=== PATIENT | male | born 1935 | race Caucasian/White ===

== ENCOUNTER → 2018-09-25 | Outpatient (CLI) | payer MEDICARE, SELFPAY ==
[2018-09-12 13:17] VITALS: BMI 40.2
--- NOTE | 2018-09-25 12:45 | CDU_ITS ---
Reason For Study: Bruits Rt. Velocities/BP Lt. Velocities/BP Prox CCA 54.2/8 cm/sec. Prox CCA 81.7/11.3 cm/sec. Mid CCA 43.2/5.8 cm/sec. Mid CCA 57.5/8 cm/sec. Dist CCA 28.2/9 cm/sec. Dist CCA 50.9/11.3 cm/sec. Prox ICA 34.4/12.4 cm/sec. Prox ICA 53.2/15.4 cm/sec. Mid ICA 66.2/16.8 cm/sec. Mid ICA 74.9/23 cm/sec. Dist ICA 50.9/12.4 cm/sec. Dist ICA 60.5/15.8 cm/sec. Rt. ICA/CCA = 1.5. Lt. ICA/CCA = 1.3. Prox ECA 106/5.3 cm/sec. Prox ECA 89.9/5.2 cm/sec. Rt. Vert. 38.8/11.3 cm/sec. Lt. Vert. 40.9/12.6 cm/sec. Right Extracranial There is intimal thickening but no significant atherosclerotic plaque noted in the right common carotid artery. There is heterogeneous, smooth atherosclerotic plaque noted in the right internal carotid artery. There is heterogeneous, smooth atherosclerotic plaque noted in the right external carotid artery. Antegrade flow is noted in the right vertebral artery. Left Extracranial There is intimal thickening but no significant atherosclerotic plaque noted in the left common carotid artery. There is heterogeneous, irregular atherosclerotic plaque noted in the left internal carotid artery. There is homogeneous, smooth atherosclerotic plaque noted in the left external carotid artery. Antegrade flow is noted in the left vertebral artery. Procedure Carotid Duplex [id number]. Exam performed in department. Interpretation Summary Post operative changes right carotid bulb and proximal internal carotid with <50% stenosis of the internal carotid <50% stenosis right external carotid Mild irregular plague at the proximal left internal carotid with <50% stenosis. <50% stenosis left external carotid Patent and antegrade vertebrals bilaterally Ordering Physician: Monik Sexton Referring Physician: MD Vincent Tommy Performed By: Hodan Hernandez RVT
== END | disposition home or self-care (01) ==
LOC: CVS 12:42
PROVIDERS: Family Provider Family Medicine; PCP Family Medicine; Referring Provider Physician Assistant Medical; Visit Provider Physician Assistant Medical
DX: R09.89 Other specified symptoms and signs involving the circulatory and respiratory systems (principal)
CPT/HCPCS: 93880

== ENCOUNTER → 2018-11-10 | Outpatient (CLI) | payer MEDICARE, SELFPAY ==
[2018-09-12 13:17] VITALS: BMI 40.2
[2018-11-10 11:29] LABS: Hematocrit 39.1 % (40-54); Mean Corp Hgb Conc 33.2 g/gl (32-36); Mean Corpuscular Hgb 27.7 pg (27.0-32.0); Mean Corpuscular Volume 83.4 fL (80-94); Mean Platelet Vol. 10.5 fl (6.2-12.0); Platelet Count 229 K/mm3 (150-450); RBC Distribution Width CV 13.4 % (11.6-14.6); RBC Distribution Width SD 39.9 fl (35.1-43.9); Red Blood Count 4.69 M/mm3 (4.6-6.2); White Blood Count 8.1 K/mm3 (4.4-11.0)
[2018-11-10 11:30] LABS: Scan Indicated on CBC? Y/N NO
[2018-11-10 11:50] LABS: Hemoglobin A1c 6.8 % (4.2-6.3)
[2018-11-10 11:52] LABS: Albumin, Serum 2.9 g/dL (3.2-5.0); BUN 13 mg/dL (7-18); BUN/Creat Ratio 10.7 RATIO (10-20); Creatinine, Serum 1.21 mg/dL (0.70-1.30); EST Glomerular Filtration Rate 61 mL/min (>60); Est Glom Filt Rate - Afr Amer 74 mL/min (>60); Glucose 158 mg/dL (74-106); Protein, Total 6.1 g/dL (6.4-8.2)
[2018-11-10 11:53] LABS: ALB/GLOB Ratio 0.9 RATIO (0.9-2.4); AST(SGOT) 18 U/L (15-37); Alanine Aminotransfer ALT/SGPT 18 U/L (16-61); Alkaline Phosphatase 95 U/L (45-117); Anion Gap 5 (5-15); Calcium,Total 7.3 mg/dL (8.5-10.1); Chloride 107 mmol/L (98-107); Cholesterol 134 mg/dL (200); Globulin 3.2 g/dL (2.2-4.2); High Density Lipoprotein 29 mg/dL; Potassium 3.6 mmol/L (3.5-5.1); Sodium Level 139 mmol/L (136-145); Triglycerides 186 mg/dL; Very Low Density Lipoprotein 37 mg/dL (5-40)
== END | disposition home or self-care (01) ==
LOC: LABSPEC 10:58
PROVIDERS: Family Provider Family Medicine; PCP Family Medicine; Referring Provider Family Medicine; Visit Provider Family Medicine
DX: E11.9 Type 2 diabetes mellitus without complications (principal); I25.10 Atherosclerotic heart disease of native coronary artery without angina pectoris; E78.5 Hyperlipidemia, unspecified
CPT/HCPCS: 80053; 80061; 83036; 85027

== ENCOUNTER → 2019-05-22 13:23 | Outpatient (CLI) | payer MEDICARE, SELFPAY ==
[2019-05-04 12:46] VITALS: BMI 37.0
--- NOTE | 2019-05-22 13:26 | ECHOD_ITS ---
Reason For Study: Murmur Procedure This was a 2D Doppler, Color Flow transthoracic echocardiogram. Exam performed in department. Left Ventricle Normal LV size. Severe concentric left ventricular hypertrophy. Sigmoid septum. Left ventricular systolic function is normal. The estimated ejection fraction is 65 %. Stage 1 diastolic dysfunction. No regional wall motion abnormalities noted. Right Ventricle Normal RV size. Normal systolic function. Atria The left atrium is moderately enlarged. The right atrium is mildly enlarged. Mitral Valve There is moderate mitral annular calcification. Mild (1+) eccentric mitral valve insufficiency. Tricuspid Valve Normal tricuspid valve. Aortic Valve Trisinus/trileaflet aortic valve. Moderate focal aortic valve calcification. Peak aortic valve gradient 31 mmHg. Mean aortic valve gradient 17 mmHg. Mild to moderate aortic stenosis. Pulmonic Valve Normal pulmonic valve. Great Vessels Calcified aortic root. The pulmonary artery is normal size. Normal inferior vena cava. Pericardium/Pleural No pericardial effusion. MMode/2D Measurements & Calculations LVIDd: 3.9 cm IVSd: 1.6 cm LVOT diam: 2.0 cm LVIDs: 2.4 cm LVPWd: 1.7 cm LVOT area: 3.2 cm2 FS: 38.0 % Ao root diam: 3.8 cm LAV(MOD-bp): 81.5 ml LA A4 area: 25.9 cm2 LAV(MOD-bp) Indexed: 39.6 ml/m2 LAV(MOD-sp2): 73.5 ml LAV(MOD-sp4): 87.0 ml LA dimension(2D): 3.6 cm RA A4 area: 21.6 cm2 Doppler Measurements & Calculations MV E max luca: 137.0 cm/sec Lat Peak E' Luca: 3.7 cm/sec Med Peak E' Luca: 4.5 cm/sec MV A max luca: 150.2 cm/sec E/E' lat: 36.5 E/E' med: 30.7 MV E/A: 0.91 MV V2 max: 161.2 cm/sec MV P1/2t max luca: 134.2 cm/sec Ao V2 max: 279.7 cm/sec MV max P.4 mmHg MV P1/2t: 82.1 msec Ao max P.3 mmHg MV V2 mean: 112.9 cm/sec MV dec slope: 478.6 cm/sec2 Ao V2 mean: 194.3 cm/sec MV mean P.4 mmHg MVA(P1/2t): 2.7 cm2 Ao mean P.0 mmHg MV V2 VTI: 43.5 cm Ao V2 VTI: 61.8 cm MVA(VTI): 1.8 cm2 MARIANNE(I,D): 1.3 cm2 MARIANNE(V,D): 1.2 cm2 LV V1 max: 108.4 cm/sec SV(LVOT): 80.0 ml PA V2 max: 107.7 cm/sec LV V1 max P.7 mmHg LV V1 mean P.5 mmHg LV V1 mean: 74.3 cm/sec LV V1 VTI: 25.1 cm Interpretation Summary Normal LV size. Severe concentric left ventricular hypertrophy. Left ventricular systolic function is normal. The estimated ejection fraction is 65 %. Stage 1 diastolic dysfunction. Moderate focal aortic valve calcification. Mild to moderate aortic stenosis. Mean aortic valve gradient 17 mmHg. Ordering Physician: Chilango Boles Referring Physician: MD Vincent Tommy Performed By: Geeta Perla RDCS
== END ==
PROVIDERS: Family Provider Family Medicine; PCP Family Medicine; Referring Provider Internal Medicine Cardiovascular Disease; Visit Provider Internal Medicine Cardiovascular Disease
DX: I25.10 Atherosclerotic heart disease of native coronary artery without angina pectoris (principal)
CPT/HCPCS: 93306

== ENCOUNTER 2020-06-20 15:28 | Outpatient (RCR) | payer MEDICARE, SELFPAY ==
[2019-05-04 12:46] VITALS: BMI 37.0
== END 2020-06-20 23:59 ==
LOC: IMMUN 15:28
PROVIDERS: PCP Family Medicine; Referring Provider Family Medicine; Visit Provider Family Medicine
DX: Z23 Encounter for immunization (principal)
CPT/HCPCS: 0011A; 0012A

== ENCOUNTER 2020-09-02 22:38 | Inpatient (IN) | payer MEDICARE, SELFPAY ==
[2019-05-04 12:46] VITALS: BMI 37.0
[2020-09-02 22:39] VITALS: PULSE 87; RESP 22; TEMP 38.1; O2SAT 88; BMI 39.9
[2020-09-02 22:41] VITALS: BP 155/116; RESP 27; O2SAT 95; O2SAT 96
--- NOTE | 2020-09-02 22:53 | EKG12_ITS ---
Test Reason : SOB Blood Pressure : / mmHG Vent. Rate : 074 BPM Atrial Rate : 102 BPM P-R Int : 000 ms QRS Dur : 096 ms QT Int : 372 ms P-R-T Axes : 000 -43 103 degrees QTc Int : 412 ms Atrial fibrillation Left axis deviation T wave abnormality, consider lateral ischemia Poor R wave progression Abnormal ECG Confirmed by GINNY HIGHTOWER, BLANCA ([id number]), art editor BIB CENTENO ([id number]) on 09/04/2020 9:12:22 AM Referred By: ANN Confirmed By:BLANCA GROSS MD
--- NOTE | 2020-09-02 22:53 | RAD_ITS ---
STUDY: X-RAY CHEST REASON FOR EXAM: Male, 85 years old. Chest pain. TECHNIQUE: AP COMPARISON: 11/15/1949 CXR FINDINGS: No evidence of pneumonia, pulmonary edema, pneumothorax or pleural effusion. Cardiac silhouette, hilar and mediastinal contours with no acute findings. Mild cardiomegaly. Previous sternotomy. Atherosclerosis of the thoracic aorta. Degenerative osseous changes particularly of the right glenohumeral joint with no acute osseous abnormality. RAD/Chest 1 View (Portable) IMPRESSION: No acute findings. Mild cardiomegaly. Electronically Signed: Kwan Lim MD at 0:18 EDT Tel , Service support ,
--- NOTE | 2020-09-02 22:59 | ED.DCSUM_ITS ---
HPI History of Present Illness Chief Complaint: Shortness of Breath PFSH PFS Medical History Atherosclerotic heart disease of [place] coronary artery without angina pectoris Benign essential hypertension Bilateral carotid bruits Carotid artery stenosis Congestive heart failure (CHF) DM type 2 (diabetes mellitus, type 2) GERD (gastroesophageal reflux disease) History of non-ST elevation myocardial infarction (NSTEMI) (06/14/06) Hyperlipidemia Left atrial enlargement Nicotine abuse Nonrheumatic aortic (valve) stenosis Obesity Rectal bleeding SBO (small bowel obstruction) Home Medications lisinopril 20 mg PO BID 09/11/14 [History Last Taken 11/14/14 17:00] potassium chloride 20 meq PO BID 09/11/14 [History Last Taken 11/14/14 17:00] tamsulosin 0.4 mg PO DAILY 09/11/14 [History Last Taken 11/13/14 22:00] carvedilol 25 mg PO BID #60 tab 09/13/14 [Rx Last Taken 11/14/14 17:00] amlodipine 10 mg PO DAILY 10/14/14 [History Last Taken 11/14/14 09:00] nitroglycerin 0.4 mg SUBLINGUAL Q5M PRN 10/14/14 [History Last Taken Unknown] simvastatin 40 mg PO QHS 10/14/14 [History Last Taken 11/14/14 22:00] clopidogrel 75 mg tablet 75 mg PO QDAY tab 08/01/17 [History Last Taken U nknown] omeprazole 20 mg capsule,delayed release 20 mg PO QDAY 08/01/17 [History Last Taken Unknown] furosemide 40 mg tablet 40 mg PO PRN PRN 03/15/18 [History Last Taken Unknown] dutasteride 0.5 mg capsule 0.5 mg PO DAILY cap 05/04/19 [History Last Taken Unknown] Allergy/AdvReac Type Severity Reaction Status Date / Time contrast dye AdvReac Severe Unknown Uncoded 05/04/19 12:47 Family History Mother CVA (cerebral vascular accident) Father CVA (cerebral vascular accident) Sister Hypertension Surgical History H/O coronary artery bypass surgery (12/01/01) History of cholecystectomy History of coronary artery stent placement (12/17/08) History of right-sided carotid endarterectomy (10/2014) Social History Smoking Status: Former smoker alcohol intake: never substance use type: does not use diet: low salt caffeine: Yes Type: coffee Number of servings: 4 what type of physical activity do you participate in: none seatbelt use: always do you feel safe at home: Yes ROS ROS ED Constitutional Constitutional ED: Reports other Details: 10 pound weight gain. ; Denies chills, fever(s) or sweats Eyes Eyes: Denies blurry vision or change in vision ENT ENT ED: Denies ear pain, rhinorrhea or sore throat Cardiovascular Cardiovascular: Reports chest pain and other Details: Bilateral lower extremity edema. ; Denies palpitations or racing heartbeat Respiratory/Chest Respiratory/Chest: Reports dyspnea and dyspnea on exertion; Denies cough or sputum Gastrointestinal Gastrointestinal: Denies abdominal pain, constipation, diarrhea or vomiting Genitourinary Genitourinary ED: Reports other Details: Scrotal edema ; Denies dysuria, hematuria or urinary frequency Musculoskeletal Musculoskeletal: Denies arthralgias, myalgias or neck pain Integumentary Denies abscess, Abrasions or rash Neurologic Neurologic: Denies headache(s), paresthesias or weakness Psychiatric Psychiatric: Denies anxiety, depression, suicidal ideation or suicidal thoughts Endocrine Endocrinology: Denies polydipsia or polyuria EXAM Physical Exam Const Vital Signs: 09/02/20 22:39 09/02/20 22:41 09/02/20 23:10 Temperature 100.5 F H Temperature Source Temporal Pulse Rate 87 Respiratory Rate 22 H 27 H Respiratory Effort Short of Breath Respiratory Depth Normal Respiratory Pattern Normal Blood Pressure 155/116 H Blood Pressure Mean 129 Pulse Ox 88 96 97 Oxygen Delivery Method Nasal Cannula Nasal Cannula Oxygen Flow Rate (L/min) 3 2 09/03/20 00:18 Temperature 98.5 F Temperature Source Oral Pulse Rate 76 Respiratory Rate 27 H Respiratory Effort Respiratory Depth Respiratory Pattern Blood Pressure 142/72 H Blood Pressure Mean 95 Pulse Ox 97 Oxygen Delivery Method Nasal Cannula Oxygen Flow Rate (L/min) 2 Positive obese General Appearance ED: NAD Nutritional Appearance: obese HEENT Reports TM's clear and moist mucous membranes atraumatic Tympanic Membrane ED: Yes TM's clear Eyes PERRL and EOMs intact bilaterally Neck no lymphadenopathy and supple Chest Wall Chest Narrative: Nontender Resp normal respiratory effort Resp Narrative: Bilateral bases Auscultation: diminished lung sounds Cardio regular rate Rhythm: abnormal rhythm GI non-tender and non-distended Palpation: soft Narrative: Nontender, edematous scrotum Extremity General Extremety ED: Yes edema; Negative for tenderness General Extremity: edema Neuro oriented x3 and CN's II-XII intact bilaterally Sensorium / Orientation: alert Psych mental status grossly normal Thought Process: normal thought process Skin no wounds Lesions: no lesions Rashes: no rashes MDM MDM MDM Narrative Medical decision making narrative: 85-year-old male presenting with dyspnea on exertion. He states he normally can get around his house pretty well however he can only walk from his bedroom to the bathroom currently and gets severely short of breath. Patient has history of CHF and states he only takes his Lasix sporadically. He was told by Dr. Boles that he should take his Lasix daily. He states he took it Tuesday and Tuesday last week. He states he does not take it all the time because any cannot leave the house due to having to urinate a lot. Patient had intermittent chest pain as well. EKG performed on arrival shows what looks to be atrial fibrillation at a rate of 74 bpm without T wave inversions in 1 and aVL as interpreted by myself. Chest x-ray shows cardiomegaly as interpreted by myself and radiology does agree. Patient has no leukocytosis, hemoglobin hematocrit are stable. Platelets are normal. Creatinine is slightly elevated over previous visit electrolytes are normal. Patient's troponin is negative. BNP is 642 D-dimer is negative when age- adjusted. Given patient was hypoxic at 88% on room air on arrival and he has lower extremity edema and scrotal edema I believe the patient would benefit from admission for treatment for heart failure. Lab Data Labs: Laboratory Results - last 24 hr 09/02/20 09/02/20 09/02/20 23:05 23:05 23:05 WBC 10.1 RBC 4.24 L Hgb 11.7 L Hct 36.7 L MCV 86.6 MCH 27.6 MCHC 31.9 L RDW Std Deviation 43.8 RDW Coeff of [place] 13.9 Plt Count 246 MPV 10.4 Immature Gran % (Auto) 1.300 H Neut % (Auto) 70.8 H Lymph % (Auto) 17.3 L [place] % (Auto) 9.9 Eos % (Auto) 0.4 Baso % (Auto) 0.3 Absolute Neuts (auto) 7.2 Absolute Lymphs (auto) 1.75 Nucleated RBC % 0 D-Dimer Quant (PE/DVT) Sodium 140 Potassium 4.2 Chloride 109 H Carbon Dioxide 24.0 Anion Gap 7 BUN 23 H Creatinine 1.49 H Estim Creat Clear Calc 32.10 Est GFR (MDRD) Af Amer 58 L Est GFR (MDRD) Non-Af 48 L BUN/Creatinine Ratio 15.4 Glucose 146 H Calcium 8.0 L Troponin I < 0.015 B-Natriuretic Peptide 642.7 H 09/02/20 23:05 WBC RBC Hgb Hct MCV MCH MCHC RDW Std Deviation RDW Coeff of [place] Plt Count MPV Immature Gran % (Auto) Neut % (Auto) Lymph % (Auto) [place] % (Auto) Eos % (Auto) Baso % (Auto) Absolute Neuts (auto) Absolute Lymphs (auto) Nucleated RBC % D-Dimer Quant (PE/DVT) 0.59 H* Sodium Potassium Chloride Carbon Dioxide Anion Gap BUN Creatinine Estim Creat Clear Calc Est GFR (MDRD) Af Amer Est GFR (MDRD) Non-Af BUN/Creatinine Ratio Glucose Calcium Troponin I B-Natriuretic Peptide Radiography Diagnostic Testing: Radiology Impression Chest X-Ray 09/02/20 22:53 IMPRESSION: No acute findings. Mild cardiomegaly. Electronically Signed: Kwan Lim MD at 0:18 EDT Tel , Service support , Discharge Plan Triage Chief Complaint: Shortness of Breath ED Provider: Lamont Stewart Dx/Rx/DC Orders Clinical Impression: CHF (congestive heart failure), Atrial fibrillation, Hypoxia Prescriptions: No Action clopidogrel 75 mg tablet 75 mg PO QDAY RF: 0 omeprazole 20 mg capsule,delayed release(DR/EC) 20 mg PO QDAY RF: 0 furosemide 40 mg tablet 40 mg PO PRN PRN (Reason: SWELLING) RF: 0 dutasteride 0.5 mg capsule 0.5 mg PO DAILY RF: 0 lisinopril 20 MG tablet 20 mg PO BID RF: 0 potassium chloride 20 MEQ tablet 20 meq PO BID RF: 0 tamsulosin 0.4 MG capsule,extended release 24hr 0.4 mg PO DAILY RF: 0 carvedilol 25 MG tablet 25 mg PO BID Qty: 60 RF: 6 simvastatin 40 MG tablet 40 mg PO QHS RF: 0 amlodipine 10 MG tablet 10 mg PO DAILY RF: 0 nitroglycerin 0.4 MG tablet 0.4 mg SUBLINGUAL Q5M PRN (Reason: Chest Pain) RF: 0 Primary Care Provider: Tommy Kaur Referrals: Tommy Kaur MD [Primary Care Provider] - Disposition Patient Disposition: Acute Care Hospital [facility]
[2020-09-02 23:10] VITALS: O2SAT 97
[2020-09-02] MEDS: Aspirin 81 MG TAB.CHEW 324 MG PO (23:24)
[2020-09-02 23:34] LABS: Absolute Lymphocyte Count 1.75 X10^3/uL (0.83-4.51); Absolute Neutrophil Count 7.2 X10^3/uL (2.0-7.7); Basophil# 0.03 X10^3/uL; Basophil% 0.3 % (0-1); Eosinophil# 0.04 X10^3/uL; Eosinophils% 0.4 % (0-5); Hematocrit 36.7 % (40-54); Hemoglobin 11.7 g/dL (13.0-16.5); Lymphocyte # 1.75 X10^3/ul (0.83-4.51); Lymphocyte % 17.3 % (19-41); Mean Corp Hgb Conc 31.9 g/dL (32-36); Mean Corpuscular Hgb 27.6 pg (27.0-32.0); Mean Corpuscular Volume 86.6 fL (80-94); Mean Platelet Vol. 10.4 fl (6.2-12.0); Monocyte% 9.9 % (0-10); NRBC Flagged by Analyzer 0 % (0-5); Neutrophil # 7.16 X10^3/uL (2.7-7.7); Neutrophil % 70.8 % (47-70); Platelet Count 246 K/mm3 (150-450); RBC Distribution Width CV 13.9 % (11.6-14.6); RBC Distribution Width SD 43.8 fl (35.1-43.9); Red Blood Count 4.24 M/mm3 (4.6-6.2); White Blood Count 10.1 K/mm3 (4.4-11.0)
[2020-09-02 23:36] LABS: BNP,B-Type NATRIURETIC PEPTIDE 642.7 pg/mL (0-100)
[2020-09-02 23:40] LABS: Anion Gap 7 (5-15); BUN 23 mg/dL (7-18); BUN/Creat Ratio 15.4 RATIO (10-20); Chloride 109 mmol/L (98-107); Creatinine, Serum 1.49 mg/dL (0.70-1.30); EST Glomerular Filtration Rate 48 mL/min (>60); Est Glom Filt Rate - Afr Amer 58 mL/min (>60); Glucose 146 mg/dL (74-106); Potassium 4.2 mmol/L (3.5-5.1); Sodium Level 140 mmol/L (136-145)
[2020-09-03] VITALS (15 sets, daily range): BP systolic 106–147; BP diastolic 48–84; PULSE 76–96; RESP 18–27; TEMP 36.4–36.9; O2SAT 95–98; BMI 41.8
[2020-09-03 00:10] LABS: D-Dimer Quantitative (DVT/PE) 0.59 FEU/ug/m (0.27-0.49)
--- NOTE | 2020-09-03 00:51 | HP.PCM_ITS ---
Documented by User: LUCITA Nowak 09/03/20 01:11 HPI - General HPI Narrative BLANCA RODRIGUEZ, is a 85 M who presents with complaints of increased shortness of breath and lower extremity swelling over the past week. Patient reports that he has been diagnosed with congestive heart failure but does not take his Lasix like he has been directed due to increased need for urination however, patient states he did take Lasix this past Tuesday and Tuesday. Patient reports that he gets short of breath walking 10 to 15 feet to the bathroom at home. EKG completed in ER shows A. fib which patient states is new for him however he is rate controlled at this time. [facility] Medical History Atherosclerotic heart disease of [place] coronary artery without angina pectoris Benign essential hypertension Bilateral carotid bruits Carotid artery stenosis Congestive heart failure (CHF) DM type 2 (diabetes mellitus, type 2) GERD (gastroesophageal reflux disease) History of non-ST elevation myocardial infarction (NSTEMI) (06/14/06) Hyperlipidemia Left atrial enlargement Nicotine abuse Nonrheumatic aortic (valve) stenosis Obesity Rectal bleeding SBO (small bowel obstruction) Home Medications lisinopril 20 mg PO BID 09/11/14 [History Last Taken 11/14/14 17:00] potassium chloride 20 meq PO BID 09/11/14 [History Last Taken 11/14/14 17:00] tamsulosin 0.4 mg PO DAILY 09/11/14 [History Last Taken 11/13/14 22:00] carvedilol 25 mg PO BID #60 tab 09/13/14 [Rx Last Taken 11/14/14 17:00] amlodipine 10 mg PO DAILY 10/14/14 [History Last Taken 11/14/14 09:00] nitroglycerin 0.4 mg SUBLINGUAL Q5M PRN 10/14/14 [History Last Taken Unknown] simvastatin 40 mg PO QHS 10/14/14 [History Last Taken 11/14/14 22:00] clopidogrel 75 mg tablet 75 mg PO QDAY tab 08/01/17 [History Last Taken Unknown] omeprazole 20 mg capsule,delayed release 20 mg PO QDAY 08/01/17 [History Last Taken Unknown] furosemide 40 mg tablet 40 mg PO PRN PRN 03/15/18 [History Last Taken Unknown] dutasteride 0.5 mg capsule 0.5 mg PO DAILY cap 05/04/19 [History Last Taken Unknown] Allergy/AdvReac Type Severity Reaction Status Date / Time contrast dye AdvReac Severe Unknown Uncoded 05/04/19 12:47 Family History Mother CVA (cerebral vascular accident) Father CVA (cerebral vascular accident) Sister Hypertension Surgical History H/O coronary artery bypass surgery (12/01/01) History of cholecystectomy History of coronary artery stent placement (12/17/08) History of right-sided carotid endarterectomy (10/2014) Social History Smoking Status: Former smoker alcohol intake: never substance use type: does not use diet: low salt caffeine: Yes Type: coffee Number of servings: 4 what type of physical activity do you participate in: none seatbelt use: always do you feel safe at home: Yes ROS Constitutional Constitutional: Reports fatigue and weight gain; Denies anorexia or chills Eyes Eyes: Denies blurry vision or change in vision ENT HEENT: Reports abnormal hearing; Denies headache(s) Cardiovascular Cardiovascular: Denies chest pain or palpitations Respiratory/Chest Respiratory/Chest: Reports shortness of breath with exertion and tachypnea; Denies cough Gastrointestinal Gastrointestinal: Denies abdominal pain, constipation, diarrhea or nausea Genitourinary Genitourinary: Denies dysuria Musculoskeletal Musculoskeletal: Denies back pain Integumentary Integumentary: Reports dry skin Neurologic Neurologic: Denies confusion, dizziness or numbness Psychiatric Psychiatric: Denies anxiety or depression Endocrine Endocrinology: Denies change in body appearance Hematologic/Lymphatic Hematologic/Lymphatic: Denies anemia, easy bleeding or easy bruising Vital Signs Vital Signs Vital Signs: 09/02/20 22:39 09/02/20 22:41 09/02/20 23:10 Temperature 100.5 F H Temperature Source Temporal Pulse Rate 87 Respiratory Rate 22 H 27 H Respiratory Effort Short of Breath Respiratory Depth Normal Respiratory Pattern Normal Blood Pressure 155/116 H Blood Pressure Mean 129 Pulse Ox 88 96 97 Oxygen Delivery Method Nasal Cannula Nasal Cannula Oxygen Flow Rate (L/min) 3 2 09/03/20 00:18 Temperature 98.5 F Temperature Source Oral Pulse Rate 76 Respiratory Rate 27 H Respiratory Effort Respiratory Depth Respiratory Pattern Blood Pressure 142/72 H Blood Pressure Mean 95 Pulse Ox 97 Oxygen Delivery Method Nasal Cannula Oxygen Flow Rate (L/min) 2 Physical Exam Const alert and oriented x3 General Appearance: cooperative HEENT normocephalic and head/scalp atraumatic Eyes PERRL and EOMs intact bilaterally Neck no lymphadenopathy, supple and no JVD Lymph Lymphatic: no lymphadenopathy noted Resp normal respiratory effort Effort and Inspection: tachypneic Auscultation: rales bilateral and diffuse Cardio regular rate, S1 normal heart sound, S2 normal heart sound and peripheral pulses 2+ throughout Rhythm: abnormal rhythm irregularly irregular GI normal to inspection, nondistended, normoactive bowel sounds, soft to palpation and non-tender Extremity normal capillary refill and no clubbing, cyanosis or edema General Extremity: no tenderness to palpation of joints or extremities Skin General Skin Exam: dry skin Neuro CN's II-XII intact bilaterally Psych thought process normal and affect normal Appearance: appropriate Lab / Micro Data Result Diagrams: 09/02/20 23:05 09/02/20 23:05 Labs: Laboratory Results - last 24 hr 09/02/20 09/02/20 09/02/20 23:05 23:05 23:05 WBC 10.1 RBC 4.24 L Hgb 11.7 L Hct 36.7 L MCV 86.6 MCH 27.6 MCHC 31.9 L RDW Std Deviation 43.8 RDW Coeff of Madonna 13.9 Plt Count 246 MPV 10.4 Immature Gran % (Auto) 1.300 H Neut % (Auto) 70.8 H Lymph % (Auto) 17.3 L [place] % (Auto) 9.9 Eos % (Auto) 0.4 Baso % (Auto) 0.3 Absolute Neuts (auto) 7.2 Absolute Lymphs (auto) 1.75 Nucleated RBC % 0 D-Dimer Quant (PE/DVT) Sodium 140 Potassium 4.2 Chloride 109 H Carbon Dioxide 24.0 Anion Gap 7 BUN 23 H Creatinine 1.49 H Estim Creat Clear Calc 32.10 Est GFR (MDRD) Af Amer 58 L Est GFR (MDRD) Non-Af 48 L BUN/Creatinine Ratio 15.4 Glucose 146 H Calcium 8.0 L Troponin I < 0.015 B-Natriuretic Peptide 642.7 H 09/02/20 23:05 WBC RBC Hgb Hct MCV MCH MCHC RDW Std Deviation RDW Coeff of Madonna Plt Count MPV Immature Gran % (Auto) Neut % (Auto) Lymph % (Auto) [place] % (Auto) Eos % (Auto) Baso % (Auto) Absolute Neuts (auto) Absolute Lymphs (auto) Nucleated RBC % D-Dimer Quant (PE/DVT) 0.59 H* Sodium Potassium Chloride Carbon Dioxide Anion Gap BUN Creatinine Estim Creat Clear Calc Est GFR (MDRD) Af Amer Est GFR (MDRD) Non-Af BUN/Creatinine Ratio Glucose Calcium Troponin I B-Natriuretic Peptide Radiology Impression Chest X-Ray 09/02/20 22:53 IMPRESSION: No acute findings. Mild cardiomegaly. Electronically Signed: Kwan Lim MD at 0:18 EDT Tel , Service support , Assessment & Plan Assessment/Plan (1) CHF (congestive heart failure): Status: Acute Code(s): I50.9 - Heart failure, unspecified Plan: -Furosemide 40 mg IV twice daily for diuresis -Ronak wraps to bilateral lower extremities and elevate extremities to decrease swelling -1500 mL fluid restriction -Strict I&O (2) Atrial fibrillation: Status: Acute Code(s): I48.91 - Unspecified atrial fibrillation Plan: -Currently rate controlled we will continue carvedilol. -Patient initiated on Lovenox, discussed with case management covered anticoagulants -Continuous cardiac monitoring (3) Hypoxia: Status: Acute Code(s): R09.02 - Hypoxemia Plan: -O2 per protocol, patient currently on 2 L nasal cannula (4) Atherosclerotic heart disease of [place] coronary artery without angina pectoris: Status: Chronic Code(s): I25.10 - Atherosclerotic heart disease of [place] coronary artery without angina pectoris Qualifiers: [place] vs. transplanted heart: [place] heart Qualified Code(s): I25.10 - Atherosclerotic heart disease of [place] coronary artery without angina pectoris (5) Benign essential hypertension: Status: Chronic Code(s): I10 - Essential (primary) hypertension Plan: -Continue home medication regimen of amlodipine, carvedilol, furosemide, lisinopril. (6) Hyperlipidemia: Status: Chronic Code(s): E78.5 - Hyperlipidemia, unspecified Qualifiers: Hyperlipidemia type: pure hypercholesterolemia Qualified Code(s): E78.00 - Pure hypercholesterolemia, unspecified; E78.0 - Pure hypercholesterolemia Plan: -Continue simvastatin (7) H/O coronary artery bypass surgery: Status: Resolved Code(s): Z95.1 - Presence of aortocoronary bypass graft (8) History of coronary artery stent placement: Status: Resolved Code(s): Z95.5 - Presence of coronary angioplasty implant and graft Plan: -Admit to PCU for cardiac monitoring -CBC, BMP daily -Vital signs per protocol -PT and OT to eval and treat -Elevate bilateral lower extremities to assist with swelling -Cardiac heart healthy diet -Consult case management for discharge planning and for evaluation of covered anticoagulants -Trend cardiac enzymes DVT Prophylaxis-subcu Lovenox This patient was seen by LUCITA Nowak under the supervision of Dr. Jacobs. Documented by User: Dr. Sathya Jacobs MD 09/03/20 01:34 HPI - General General Date of Admission: 09/03/20 [facility] Medical History Atherosclerotic heart disease of [place] coronary artery without angina pectoris Benign essential hypertension Bilateral carotid bruits Carotid artery stenosis Congestive heart failure (CHF) DM type 2 (diabetes mellitus, type 2) GERD (gastroesophageal reflux disease) History of non-ST elevation myocardial infarction (NSTEMI) (06/14/06) Hyperlipidemia Left atrial enlargement Nicotine abuse Nonrheumatic aortic (valve) stenosis Obesity Rectal bleeding SBO (small bowel obstruction) Home Medications lisinopril 20 mg PO BID 09/11/14 [History Last Taken 11/14/14 17:00] potassium chloride 20 meq PO BID 09/11/14 [History Last Taken 11/14/14 17:00] tamsulosin 0.4 mg PO DAILY 09/11/14 [History Last Taken 11/13/14 22:00] carvedilol 25 mg PO BID #60 tab 09/13/14 [Rx Last Taken 11/14/14 17:00] amlodipine 10 mg PO DAILY 10/14/14 [History Last Taken 11/14/14 09:00] nitroglycerin 0.4 mg SUBLINGUAL Q5M PRN 10/14/14 [History Last Taken Unknown] simvastatin 40 mg PO QHS 10/14/14 [History Last Taken 11/14/14 22:00] clopidogrel 75 mg tablet 75 mg PO QDAY tab 08/01/17 [History Last Taken Unknown] omeprazole 20 mg capsule,delayed release 20 mg PO QDAY 08/01/17 [History Last Taken Unknown] furosemide 40 mg tablet 40 mg PO PRN PRN 03/15/18 [History Last Taken Unknown] dutasteride 0.5 mg capsule 0.5 mg PO DAILY cap 05/04/19 [History Last Taken Unknown] Allergy/AdvReac Type Severity Reaction Status Date / Time contrast dye AdvReac Severe Unknown Uncoded 05/04/19 12:47 Family History Mother CVA (cerebral vascular accident) Father CVA (cerebral vascular accident) Sister Hypertension Surgical History H/O coronary artery bypass surgery (12/01/01) History of cholecystectomy History of coronary artery stent placement (12/17/08) History of right-sided carotid endarterectomy (10/2014) Social History Smoking Status: Former smoker alcohol intake: never substance use type: does not use diet: low salt caffeine: Yes Type: coffee Number of servings: 4 what type of physical activity do you participate in: none seatbelt use: always do you feel safe at home: Yes Lab / Micro Data Result Diagrams: 09/02/20 23:05 09/02/20 23:05 Patient was seen and examined. I agree with assessment and plan by LUCITA Nowak. In summary patient is an 85-year-old male with a significant history of CABG and multiple stent; diabetes mellitus not any hypoglycemic regimen who presents to emergency department with dyspnea on exertion that started a day before pres entation. Associated with symptoms is orthopnea to the point that he sleeps in a recliner. Further he has bilateral swelling in his lower extremities. Alert oriented x3 Heart sounds S1-S2 present. Murmur present Lungs with mild Rales Abdomen edematous Extremities with swelling and excoriations Bilateral leg and feet edema Assessment and plan Acute hypoxemic respiratory insufficiency secondary to acute CHF exacerbation Noted to have oxygen saturation of 88% at the emergency department. Oxygen per protocol to keep oxygen saturation to at least 92%. Chest x-ray independently interpreted showed sternotomy wires and cardiomegaly. Old records were reviewed. Patient had an echocardiogram on 05/22/2019. Echocardiogram showed ejection fraction of 65% and stage I diastolic dysfunction. Patient had mild eccentric mitral valve insufficiency. Patient had left atrium moderate enlargement. Right atrium was mildly enlarged. Was given Lasix 40 mg IV at the emergency department. Continue Lasix 40 mg IV twice daily. Trend BMP. Cardiac diet Daily weights Fluid restriction of thousand 500 mL/day Atrial fibrillation Was found to be in A. fib with controlled rate in the emergency department. Home Coreg. Was started on therapeutic Lovenox. Check TSH and magnesium. Review of emergency department labs showed normal potassium. Intertrigo Nystatin powder ordered. CKD stage III Creatinine on presentation was 1.49. His creatinine 2019 was 1.21. Trend BMP DVT prophylaxis Not indicated since patient has been started on therapeutic dose of Lovenox Inpatient E&M: 90284 Init Hosp L3
[2020-09-03] MEDS: Furosemide 40 MG/4 ML Vial IV ×3 (01:00→17:28)
[2020-09-03 04:51] LABS: Absolute Lymphocyte Count 1.88 X10^3/uL (0.83-4.51); Absolute Neutrophil Count 8.3 X10^3/uL (2.0-7.7); Basophil# 0.05 X10^3/uL; Basophil% 0.4 % (0-1); Eosinophil# 0.03 X10^3/uL; Eosinophils% 0.3 % (0-5); Hemoglobin 11.6 g/dL (13.0-16.5); Lymphocyte # 1.88 X10^3/ul (0.83-4.51); Lymphocyte % 16.5 % (19-41); Mean Corp Hgb Conc 32.2 g/dL (32-36); Mean Corpuscular Hgb 28.4 pg (27.0-32.0); Mean Platelet Vol. 10.1 fl (6.2-12.0); Monocyte# 1.07 X10^3/uL; Monocyte% 9.4 % (0-10); NRBC Flagged by Analyzer 0 % (0-5); Neutrophil # 8.28 X10^3/uL (2.7-7.7); Neutrophil % 72.6 % (47-70); Platelet Count 234 K/mm3 (150-450); RBC Distribution Width CV 13.8 % (11.6-14.6); RBC Distribution Width SD 44.7 fl (35.1-43.9); Red Blood Count 4.09 M/mm3 (4.6-6.2); White Blood Count 11.4 K/mm3 (4.4-11.0)
[2020-09-03 05:26] LABS: Anion Gap 9 (5-15); BUN 25 mg/dL (7-18); BUN/Creat Ratio 16.6 RATIO (10-20); Calcium,Total 7.8 mg/dL (8.5-10.1); Chloride 108 mmol/L (98-107); Creatinine, Serum 1.51 mg/dL (0.70-1.30); EST Glomerular Filtration Rate 47 mL/min (>60); Est Glom Filt Rate - Afr Amer 57 mL/min (>60); Estimated Creatinine Clearance 31.68 ml/min; Glucose 159 mg/dL (74-106); Magnesium 0.9 mg/dL (1.6-2.6); Potassium 4.1 mmol/L (3.5-5.1); Sodium Level 141 mmol/L (136-145); Thyroid Stim Hormone (TSH) 1.21 uIU/mL (0.358-3.74)
[2020-09-03] MEDS: Magnesium Sulfate 4gm/100mL 4 GM/100 ML IV.SOLN. IV (06:15)
[2020-09-03] MEDS: Aspirin E.C. 81 MG Tablet PO (11:40)
[2020-09-03] MEDS: Tamsulosin HCl 0.4 MG Capsule PO (11:44)
[2020-09-03] MEDS: Carvedilol 25 MG Tablet PO ×2 (11:44→21:03)
[2020-09-03] MEDS: Potassium Chloride Oral Tablet 20 MEQ PO ×2 (11:44→21:03)
[2020-09-03] MEDS: 0.9% Saline Lock 10 ML Syringe IV ×3 (11:45→21:03)
[2020-09-03] MEDS: amLODIPine 10 MG Tablet PO (11:45)
[2020-09-03] MEDS: Enoxaparin 40 MG/0.4 ML Syringe SC (11:45)
[2020-09-03] MEDS: Finasteride 5 MG Tablet PO (11:46)
[2020-09-03] MEDS: Lisinopril 20 MG Tablet PO ×2 (11:46→21:03)
[2020-09-03] MEDS: Clopidogrel Bisulfate 75 MG Tablet PO (11:46)
[2020-09-03] MEDS: Pantoprazole Sodium 20 MG Tablet PO (11:46)
--- NOTE | 2020-09-03 12:15 | CASEMGMT ---
RN CANDIDO FEED CRUSHER CM to room to meet with patient for initial transition planning/care coordination assessment. RN CANDIDO introduced self and role at [facility]. Pt voices understanding and consents to assessment at this time. Pt sitting up in chair in room in no distress at this time. Pt is A/O at this time and answers all questions appropriately. Care providers, pharmacy, and demographics verified/updated at this time. PCP: Dr Kaur Specialists: Dr Boles--cardiology Preferred Pharmacy: [facility] Retail Insurance: [employer] [facility] Prescription Benefit: Yes Living Will/HPOA: States does not have LW or HCPOA . Interested in more information but states does not want to talk with SW at this time to complete paperwork. Provided information on advanced directives and given Social Service rac card with number to call if chooses in the future to utilize [facility] social work for advanced directive completion. Educated patient that, if patient so chooses, can come back to [facility] and meet with a SW as an outpatient to complete health care advanced directives. Patient expresses understanding. LNOK: dtr-in-law, Kath Leslie, is listed as only contact. Pt states he does not wish to add anyone else at this time. He states his son (Kath's ) is . He has 2 other sons, one lives in [place], and the other lives in [place], but he does not wish for them to be listed as contacts at this time. Living Arrangements: Lives alone in mobile home w/4 steps to enter, which he denies difficulty with. He states there is also a ramp entrance available if needed. Independent w/ADL's. Manages his medications and appts. States he does his own grocery shopping and cooking and laundry. States he does the cleaning, but states, it doesn't get done very often. Transportation: Pt states drives self and states no transportation concerns at this time. DME: States has the following DME: cane, walker. Pt does not have home O2. Pt states no need for further DME at this time. HHC/SNF: No hx SNF. Had HHC about 20 yrs ago after Cardiac Bypass, but does not remember name of agency. Pt declines need for HHC. Aware PT/OT evals are pending. He states he may be interested in OP therapy if they recommend it. Gilma REY, made aware and will follow. Pt wishes to return home and states has no concerns with going home at time of discharge. CM to follow for home for any further discharge planning/needs. Pt voices no concerns/needs at this time. Advised pt to ask for CM if any questions/concerns/needs arise. Voices understanding. PLAN: Home PT/OT evals pending. CM to follow. Pt may be interested in OP therapy if it is recommended. CM to follow for any O2 needs @ d/c. Pt currently on RA. May need ambulatory pulse ox prior to d/c. Lazaro MCKEEN RN CM
--- NOTE | 2020-09-03 12:54 | PCM.PN.HOSP ---
Documented by User: Candi Whitman NP, [employer] 09/03/20 13:10 Subjective Subjective: Patient seen and examined. Reports improvement in shortness of breath. Remains on supplemental oxygen. Denies chest pain. Denies other associated symptoms or complaints. Objective Data Objective Data Vital Signs: Vital Signs Temp Pulse Resp BP Pulse Ox 97.8 F 82 20 H 124/48 H 98 09/03/20 12:19 09/03/20 12:27 09/03/20 12:27 09/03/20 12:19 09/03/20 12:27 Oxygen Flow Rate (L/min) 2 Oxygen Delivery Method Nasal Cannula Weight: 250 lb 14.177 oz Body Mass Index (BMI) 41.8 Finger Stick Blood Glucose 149 Intake & Output: Intake and Output for Last 24 Hours 09/01/20 09/02/20 09/03/20 23:59 23:59 23:59 Intake Total 160 / 160 Balance 160 / 160 Lab / Micro Data Result Diagrams: 09/03/20 04:46 09/03/20 04:46 Labs: Laboratory Results - last 24 hr 09/02/20 09/02/20 09/02/20 23:05 23:05 23:05 WBC 10.1 RBC 4.24 L Hgb 11.7 L Hct 36.7 L MCV 86.6 MCH 27.6 MCHC 31.9 L RDW Std Deviation 43.8 RDW Coeff of [place] 13.9 Plt Count 246 MPV 10.4 Immature Gran % (Auto) 1.300 H Neut % (Auto) 70.8 H Lymph % (Auto) 17.3 L [place] % (Auto) 9.9 Eos % (Auto) 0.4 Baso % (Auto) 0.3 Absolute Neuts (auto) 7.2 Absolute Lymphs (auto) 1.75 Nucleated RBC % 0 D-Dimer Quant (PE/DVT) Sodium 140 Potassium 4.2 Chloride 109 H Carbon Dioxide 24.0 Anion Gap 7 BUN 23 H Creatinine 1.49 H Estim Creat Clear Calc 32.10 Est GFR (MDRD) Af Amer 58 L Est GFR (MDRD) Non-Af 48 L BUN/Creatinine Ratio 15.4 Glucose 146 H Calcium 8.0 L Magnesium Troponin I < 0.015 B-Natriuretic Peptide 642.7 H TSH 09/02/20 09/03/20 09/03/20 23:05 02:10 04:46 WBC 11.4 H RBC 4.09 L Hgb 11.6 L Hct 36.0 L MCV 88.0 MCH 28.4 MCHC 32.2 RDW Std Deviation 44.7 H RDW Coeff of [place] 13.8 Plt Count 234 MPV 10.1 Immature Gran % (Auto) 0.800 Neut % (Auto) 72.6 H Lymph % (Auto) 16.5 L [place] % (Auto) 9.4 Eos % (Auto) 0.3 Baso % (Auto) 0.4 Absolute Neuts (auto) 8.3 H Absolute Lymphs (auto) 1.88 Nucleated RBC % 0 D-Dimer Quant (PE/DVT) 0.59 H* Sodium Potassium Chloride Carbon Dioxide Anion Gap BUN Creatinine Estim Creat Clear Calc Est GFR (MDRD) Af Amer Est GFR (MDRD) Non-Af BUN/Creatinine Ratio Glucose Calcium Magnesium Troponin I < 0.015 B-Natriuretic Peptide TSH 09/03/20 09/03/20 04:46 04:46 WBC RBC Hgb Hct MCV MCH MCHC RDW Std Deviation RDW Coeff of Madonna Plt Count MPV Immature Gran % (Auto) Neut % (Auto) Lymph % (Auto) [place] % (Auto) Eos % (Auto) Baso % (Auto) Absolute Neuts (auto) Absolute Lymphs (auto) Nucleated RBC % D-Dimer Quant (PE/DVT) Sodium 141 Potassium 4.1 Chloride 108 H Carbon Dioxide 24.0 Anion Gap 9 BUN 25 H Creatinine 1.51 H Estim Creat Clear Calc 31.68 Est GFR (MDRD) Af Amer 57 L Est GFR (MDRD) Non-Af 47 L BUN/Creatinine Ratio 16.6 Glucose 159 H Calcium 7.8 L Magnesium 0.9 L* Troponin I < 0.015 B-Natriuretic Peptide TSH 1.21 Radiography Diagnostic Testing: Radiology Impression Chest X-Ray 09/02/20 22:53 IMPRESSION: No acute findings. Mild cardiomegaly. Electronically Signed: Kwan Lim MD at 0:18 EDT Tel , Service support , Physical Exam Const alert, oriented x3 and no apparent distress Orientation / Consciousness: awake, oriented to person, oriented to place and oriented to time HEENT normocephalic and moist oral mucous membranes Head and Scalp: normocephalic Eyes PERRL, EOMs intact bilaterally and conjunctivae normal Neck no lymphadenopathy Resp clear to auscultation bilaterally Auscultation: diminished lung sounds Cardio Cardio Narrative: Atrial fibrillation, rate controlled Heart Sounds: murmur Peripheral Pulses: pulses 2+ throughout GI normal to inspection, nondistended, normoactive bowel sounds, non-tender and non-distended Extremity normal to inspection General Extremity: edema bilateral lower extremity Details: severe Peripheral Pulses: Yes pulses 2+ throughout Skin no rashes or lesions noted Lesions: no lesions Rashes: no rashes Trauma: no lacerations or abrasions Neuro oriented x3 Sensorium / Orientation: awake and alert Psych affect normal Assessment & Plan Assessment/Plan (1) CHF (congestive heart failure): Status: Acute Code(s): I50.9 - Heart failure, unspecified (2) Atrial fibrillation: Status: Acute Code(s): I48.91 - Unspecified atrial fibrillation (3) Hypoxia: Status: Acute Code(s): R09.02 - Hypoxemia Plan: 1. Acute hypoxic respiratory insufficiency secondary to acute on chronic heart failure with preserved ejection fraction-BNP 642. Chest x-ray unremarkable. Patient with significant lower extremity edema. Echocardiogram May 2019 demonstrated an EF of 65%, stage I diastolic dysfunction, mild to moderate aortic stenosis. IV Lasix. Strict I&O. Daily weight. Wean oxygen as tolerated. Repeat echocardiogram. 2. Atrial fibrillation, new onset-rate controlled. On therapeutic Lovenox. Continue carvedilol. Will need oral anticoagulation at discharge. Echocardiogram ordered as noted above. Replace mag. 3. CAD with history of coronary artery bypass/angioplasty/stenting-stable, continue Plavix, statin, carvedilol, lisinopril. Troponin negative. 4. Hypertension-stable, continue amlodipine, carvedilol, lisinopril. 5. Hyperlipidemia-continue statin. 6. Chronic kidney disease stage IIIa-above baseline however no YOLIS. Trend BMP. 7. Obesity-encouraged diet and lifestyle modifications. DVT prophylaxis-Lovenox subcu. This patient was seen by LUCITA Contreras under the supervision of Dr. Coto. Documented by User: Dr. Sukhi Coto DO 09/03/20 13:58 Objective Data Lab / Micro Data Result Diagrams: 09/03/20 04:46 09/03/20 04:46 Assessment & Plan Assessment/Plan (1) CHF (congestive heart failure): Status: Acute Code(s): I50.9 - Heart failure, unspecified Plan: Patient seen and examined independently. Data reviewed. I agree with the above note by the nurse practitioner. 1. Acute heart failure with preserved ejection fraction: EF 65% from 2D echocardiogram. Patient had been taking furosemide intermittently and not consistently due to frequency of urination but also related with some gastrointestinal distress that he would experience. Thus far appears to be tolerating it. The plan is to continue with IV furosemide, carvedilol and lisinopril. The patient continues to have GI issues may consider Bumex or Demadex instead of furosemide. 2. A. fib: New diagnosis. Continue with carvedilol. Change [place] apparent over to apixaban. 3. Hypomagnesemia: Replace and reevaluate. Inpatient E&M: 97994 Subs Hosp L2
--- NOTE | 2020-09-03 13:05 | ECHOCS_ITS ---
Reason For Study: CHF Procedure This was a 2D Doppler, Color Flow transthoracic echocardiogram. Very technically difficult study. Patient refused to get into bed to have testing done, he said he was too short of breath. Echo was performed with patient sitting upright in room chair. Definity used to try and enhance images as much as possible. The study was technically difficult. Contrast injection was performed. Exam performed portable in patient room. Left Ventricle Based upon the 2D echocardiographic and contrast enhanced images obtained there appears to be grossly normal left ventricular size, wall motion, and systolic function. The estimated ejection fraction is 60 %. Unable to assess diastolic dysfunction. Right Ventricle Based upon the 2D echocardiographic images obtained there appears to be grossly normal right ventricular size and systolic function. Atria The left atrium is moderately enlarged. The right atrium is not well visualized. No doppler evidence for ASD. Mitral Valve There is moderate to severe mitral annular calcification. Extension of the mitral annular calcification onto the mitral valve leaflets. Trivial mitral valve insufficiency. Tricuspid Valve Normal tricuspid valve. Trivial tricuspid valve insufficiency. Unable to estimate RV systolic pressure/pulmonary artery pressure due to technically difficult study. Aortic Valve Trisinus/trileaflet aortic valve. Severe diffuse aortic valve calcification. Moderate aortic stenosis. Pulmonic Valve The pulmonic valve is not well visualized. Great Vessels The aortic root is not well visualized. Pericardium/Pleural No pericardial effusion. MMode/2D Measurements & Calculations LVOT diam: 2.0 cm LA dimension: 4.4 cm LVOT area: 3.3 cm2 Time Measurements MV dec time: 0.31 sec Doppler Measurements & Calculations MV E max luca: 159.4 cm/sec Lat Peak E' Luca: 5.6 cm/sec Med Peak E' Luca: 4.5 cm/sec E/E' lat: 28.7 E/E' med: 35.3 Ao V2 max: 307.2 cm/sec LV V1 max: 84.1 cm/sec SV(LVOT): 59.4 ml Ao max P.8 mmHg LV V1 max P.8 mmHg Ao V2 mean: 187.9 cm/sec LV V1 mean P.5 mmHg Ao mean P.4 mmHg LV V1 mean: 55.5 cm/sec Ao V2 VTI: 63.8 cm LV V1 VTI: 18.3 cm MARIANNE(I,D): 0.93 cm2 MARIANNE(V,D): 0.89 cm2 PA V2 max: 103.0 cm/sec ECHO/Echo Complete W/ Contrast Interpretation Summary The study was technically difficult. Contrast injection was performed. Based upon the 2D echocardiographic and contrast enhanced images obtained there appears to be grossly normal left ventricular size, wall motion, and systolic function. The estimated ejection fraction is 60 %. The left atrium is moderately enlarged. There is moderate to severe mitral annular calcification. Extension of the mitral annular calcification onto the mitral valve leaflets. Trivial mitral valve insufficiency. Trivial tricuspid valve insufficiency. Moderate aortic stenosis. Unable to estimate RV systolic pressure/pulmonary artery pressure due to techni antonio difficult study. Unable to assess diastolic dysfunction. Ordering Physician: Candi Whitman Referring Physician: MD Tommy Kaur Performed By: Keron Whelan RCS
--- NOTE | 2020-09-03 13:18 | CHAPLAIN ---
Type of Pastoral Visit _x__ Initial Visit ___ Follow-up Visit ___ On-call Visit ___ General Patient Visit ___ Spiritual Assessment ___ Family Conference ___ Bereavement ___ Rapid Response ___ Code Blue ___ Other (describe below) Pastoral Care Referral From _x__ Patient ___ Family ___ Nurse ___ Physician ___ Chest Pain Coordinator ___ Photography Professor ___ Other (describe below) Sacrament/Intervention _x__ Active listening ___ Anointing ___ Druze ___ Bereavement ___ Communion ___ Jeniffer exploration ___ _x__ Life review ___ Prayer ___ Reconciliation ___ Sacrament of Sick _x__ Supportive presence ___ Wedding ___ Other (describe below) Pastoral Comments patient discusses health history and a list of deaths in his family over last few years; pt states he has no family in the area that are supportive of him; pt has a neighbor that gives some help when needed; pt does not have current muslim affiliation and is not interested in spiritual matters at this time; pt willing to have visits
[2020-09-03] MEDS: Ondansetron 4 MG/2 ML Vial IV (21:03)
[2020-09-03] MEDS: Atorvastatin Calcium 20 MG Tablet PO (21:03)
[2020-09-03] MEDS: APIXABAN 2.5 MG TABLET PO (21:03)
[2020-09-03] MEDS: Acetaminophen 325 MG Tablet 650 MG PO (21:52)
[2020-09-04] VITALS (10 sets, daily range): BP systolic 96–124; BP diastolic 36–61; PULSE 62–86; RESP 18–20; TEMP 36.3–36.6; O2SAT 93–96
[2020-09-04 05:21] LABS: Absolute Lymphocyte Count 1.54 X10^3/uL (0.83-4.51); Absolute Neutrophil Count 4.6 X10^3/uL (2.0-7.7); Basophil# 0.02 X10^3/uL; Basophil% 0.3 % (0-1); Eosinophil# 0.27 X10^3/uL; Eosinophils% 3.8 % (0-5); Hematocrit 34.3 % (40-54); Hemoglobin 10.6 g/dL (13.0-16.5); Lymphocyte # 1.54 X10^3/ul (0.83-4.51); Lymphocyte % 21.6 % (19-41); Mean Corp Hgb Conc 30.9 g/dL (32-36); Mean Corpuscular Hgb 27.7 pg (27.0-32.0); Mean Corpuscular Volume 89.8 fL (80-94); Mean Platelet Vol. 10.2 fl (6.2-12.0); Monocyte% 8.4 % (0-10); NRBC Flagged by Analyzer 0 % (0-5); Neutrophil # 4.64 X10^3/uL (2.7-7.7); Neutrophil % 65.2 % (47-70); Platelet Count 242 K/mm3 (150-450); RBC Distribution Width SD 45.2 fl (35.1-43.9); Red Blood Count 3.82 M/mm3 (4.6-6.2); White Blood Count 7.1 K/mm3 (4.4-11.0)
[2020-09-04 05:36] LABS: Anion Gap 5 (5-15); BUN 31 mg/dL (7-18); BUN/Creat Ratio 20.5 RATIO (10-20); Calcium,Total 7.9 mg/dL (8.5-10.1); Chloride 108 mmol/L (98-107); Creatinine, Serum 1.51 mg/dL (0.70-1.30); EST Glomerular Filtration Rate 47 mL/min (>60); Est Glom Filt Rate - Afr Amer 57 mL/min (>60); Estimated Creatinine Clearance 31.68 ml/min; Glucose 135 mg/dL (74-106); Magnesium 1.8 mg/dL (1.6-2.6); Potassium 3.8 mmol/L (3.5-5.1); Sodium Level 140 mmol/L (136-145)
[2020-09-04] MEDS: 0.9% Saline Lock 10 ML Syringe IV ×2 (08:37→11:17)
[2020-09-04] MEDS: Furosemide 40 MG/4 ML Vial IV (08:37)
[2020-09-04] MEDS: APIXABAN 2.5 MG TABLET PO (08:38)
[2020-09-04] MEDS: Finasteride 5 MG Tablet PO (08:38)
[2020-09-04] MEDS: Pantoprazole Sodium 20 MG Tablet PO (08:38)
[2020-09-04] MEDS: Clopidogrel Bisulfate 75 MG Tablet PO (08:38)
[2020-09-04] MEDS: Aspirin E.C. 81 MG Tablet PO (08:38)
[2020-09-04] MEDS: Tamsulosin HCl 0.4 MG Capsule PO (08:38)
[2020-09-04] MEDS: Potassium Chloride Oral Tablet 20 MEQ PO (08:38)
[2020-09-04] MEDS: Carvedilol 25 MG Tablet PO (08:39)
[2020-09-04] MEDS: Acetaminophen 325 MG Tablet 650 MG PO (08:52)
[2020-09-04] MEDS: Ondansetron 4 MG/2 ML Vial IV (11:17)
--- NOTE | 2020-09-04 13:22 | CASEMGMT ---
Pt screened with [facility] Palliative Screening Tool due to strata 3, pt did not meet criteria.
--- NOTE | 2020-09-04 15:28 | PCM.DC ---
Discharge Instructions Outpatient Procedure Reason For Visit: CHF EXACERBATION Diet Discharge Diet: 2000 mg Sodium Diet Activity Discharge Activity: Return to Normal Activity Dressing / Incision Call your doctor if you observe: Fever of 101 or Higher and Chest pain Follow Up Care Test Results: Test results from this visit will be discussed in further detail at your follow-up appointment, if applicable. Discharge Plan Admission Admit Date/Time: 09/03/20 00:50 Attending Provider: Sukhi Coto Primary Care Provider: Tommy Kaur Instructions Patient Instructions: Heart Failure: Tracking Your Weight, Heart Failure: Making Changes to Your Diet, Heart Failure: Evaluating Your Heart, Heart Failure: Medications to Help Your Heart, Heart Failure Discharge Orders/Prescriptions Prescriptions: New Eliquis 2.5 mg Tablet 2.5 mg PO BID Qty: 60 RF: 0 bumetanide 0.5 mg Tablet 1 mg PO BID Qty: 60 RF: 0 Continued clopidogrel 75 mg tablet 75 mg PO QDAY RF: 0 omeprazole 20 mg capsule,delayed release(DR/EC) 20 mg PO QDAY RF: 0 dutasteride 0.5 mg capsule 0.5 mg PO DAILY RF: 0 potassium chloride 20 MEQ tablet 20 meq PO BID RF: 0 tamsulosin 0.4 MG capsule,extended release 24hr 0.4 mg PO QHS RF: 0 carvedilol 25 MG tablet 25 mg PO BID Qty: 60 RF: 6 simvastatin 40 MG tablet 40 mg PO QHS RF: 0 nitroglycerin 0.4 MG tablet 0.4 mg SUBLINGUAL Q5M PRN (Reason: Chest Pain) RF: 0 Changed lisinopril 20 MG tablet 20 mg PO DAILY Qty: 0 RF: 0 Discontinued furosemide 40 mg tablet 40 mg PO PRN PRN (Reason: SWELLING) RF: 0 amlodipine 10 MG tablet 10 mg PO DAILY RF: 0 Referrals: Chilango Boles MD [STAFF PHYSICIAN] - Within 1 Month Tommy Kaur MD [Primary Care Provider] - Within 1 Week Disposition Patient Disposition: Home, self care
--- NOTE | 2020-09-04 15:35 | DS.PCM_ITS ---
Providers Date of Admission: 09/03/20 Primary Care Physician: Dr. Tommy Kaur MD Reason For Visit: CHF EXACERBATION Diagnosis Discharge Diagnosis (1) CHF (congestive heart failure): Status: Acute Code(s): I50.9 - Heart failure, unspecified Medications at Discharge Home Medications potassium chloride 20 meq PO BID 09/11/14 tamsulosin 0.4 mg PO QHS 09/11/14 carvedilol 25 mg PO BID #60 tab 09/13/14 nitroglycerin 0.4 mg SUBLINGUAL Q5M PRN 10/14/14 simvastatin 40 mg PO QHS 10/14/14 clopidogrel 75 mg tablet 75 mg PO QDAY tab 08/01/17 omeprazole 20 mg capsule,delayed release 20 mg PO QDAY 08/01/17 dutasteride 0.5 mg capsule 0.5 mg PO DAILY cap 05/04/19 apixaban [Eliquis] 2.5 mg PO BID #60 tab 09/04/20 bumetanide 1 mg PO BID #60 tab 09/04/20 lisinopril 20 mg PO DAILY #0 tab 09/04/20 Hospital Course Procedures 2-D Echocardiogram Summary of Care Provided Minutes Spent on Discharge: 35 Hospital Course: 85-year-old white male presents with increasing shortness of breath and lower extremity edema over the past week. Patient has a known history of CHF and has been taking furosemide sparingly. Was ordered as needed released according to the patient, but patient said that he does not take the frequent because he urinates frequently but also he gets GI distress with that on occasion. The patient came in was diagnosed with CHF and was started on diuresis. Patient did well and today is on room air. Still does have edema in his lower extremities but is doing well. Patient did complain of a headache and some nausea today unclear if this is related to Lasix or just an underlying migraine but overall the patient is feeling better. And lieu of the Lasix, patient will be on bumetanide 1 mg twice daily. Patient instructed to check daily weights. Given his lower extremity edema and low normal blood pressure, will discontinue the amlodipine but also cut back his lisinopril from 20 twice daily to once daily. Patient did have A. fib at rate controlled. Patient already on carvedilol and will continue. Patient started on apixaban for anticoagulation given his [id number] score of 4. Physical Exam Const alert and oriented x3 General Appearance: cooperative and comfortable Resp normal respiratory effort and clear to auscultation bilaterally Cardio regular rate, regular rhythm, S1 normal heart sound and S2 normal heart sound ABG / Lab / Microbiology Data Result Diagrams: 09/04/20 05:04 09/04/20 05:04 Laboratory: Laboratory Results - last 24 hr 09/04/20 09/04/20 05:04 05:04 WBC 7.1 RBC 3.82 L Hgb 10.6 L Hct 34.3 L MCV 89.8 MCH 27.7 MCHC 30.9 L RDW Std Deviation 45.2 H RDW Coeff of Madonna 14.0 Plt Count 242 MPV 10.2 Immature Gran % (Auto) 0.700 Neut % (Auto) 65.2 Lymph % (Auto) 21.6 [place] % (Auto) 8.4 Eos % (Auto) 3.8 Baso % (Auto) 0.3 Absolute Neuts (auto) 4.6 Absolute Lymphs (auto) 1.54 Nucleated RBC % 0 Sodium 140 Potassium 3.8 Chloride 108 H Carbon Dioxide 27.0 Anion Gap 5 BUN 31 H Creatinine 1.51 H Estim Creat Clear Calc 31.68 Est GFR (MDRD) Af Amer 57 L Est GFR (MDRD) Non-Af 47 L BUN/Creatinine Ratio 20.5 H Glucose 135 H Calcium 7.9 L Magnesium 1.8 Radiography Diagnostic Testing: Radiology Impression Echocardiogram 09/03/20 13:05 Interpretation Summary The study was technically difficult. Contrast injection was performed. Based upon the 2D echocardiographic and contrast enhanced images obtained there appears to be grossly normal left ventricular size, wall motion, and systolic function. The estimated ejection fraction is 60 %. The left atrium is moderately enlarged. There is moderate to severe mitral annular calcification. Extension of the mitral annular calcification onto the mitral valve leaflets. Trivial mitral valve insufficiency. Trivial tricuspid valve insufficiency. Moderate aortic stenosis. Unable to estimate RV systolic pressure/pulmonary artery pressure due to technically difficult study. Unable to assess diastolic dysfunction. Ordering Physician: Candi Whitman Referring Physician: MD Tommy Kaur Performed By: Keron Whelan RCS D/C Instructions Discharge Diet: 2000 mg Sodium Diet Discharge Activity: Return to Normal Activity Call your doctor if you observe: Fever of 101 or Higher and Chest pain Meaningful Use Info Meaningful Use Diagnoses (Choose all that apply): CHF CHF CLARI/ARB ordered at discharge?: Yes Documented LVEF (%): 60 Discharge Plan Admission Admit Date/Time: 09/03/20 00:50 Attending Provider: Sukhi Coto Primary Care Provider: Tommy Kaur Instructions Patient Instructions: Heart Failure: Tracking Your Weight, Heart Failure: Whitney armenta Changes to Your Diet, Heart Failure: Evaluating Your Heart, Heart Failure: Medications to Help Your Heart, Heart Failure Discharge Orders/Prescriptions Prescriptions: New Eliquis 2.5 mg Tablet 2.5 mg PO BID Qty: 60 RF: 0 bumetanide 0.5 mg Tablet 1 mg PO BID Qty: 60 RF: 0 Continued clopidogrel 75 mg tablet 75 mg PO QDAY RF: 0 omeprazole 20 mg capsule,delayed release(DR/EC) 20 mg PO QDAY RF: 0 dutasteride 0.5 mg capsule 0.5 mg PO DAILY RF: 0 potassium chloride 20 MEQ tablet 20 meq PO BID RF: 0 tamsulosin 0.4 MG capsule,extended release 24hr 0.4 mg PO QHS RF: 0 carvedilol 25 MG tablet 25 mg PO BID Qty: 60 RF: 6 simvastatin 40 MG tablet 40 mg PO QHS RF: 0 nitroglycerin 0.4 MG tablet 0.4 mg SUBLINGUAL Q5M PRN (Reason: Chest Pain) RF: 0 Changed lisinopril 20 MG tablet 20 mg PO DAILY Qty: 0 RF: 0 Discontinued furosemide 40 mg tablet 40 mg PO PRN PRN (Reason: SWELLING) RF: 0 amlodipine 10 MG tablet 10 mg PO DAILY RF: 0 Referrals: Chilango Boles MD [STAFF PHYSICIAN] - Within 1 Month Tommy Kaur MD [Primary Care Provider] - Within 1 Week Disposition Patient Disposition: Home, self care
== END 2020-09-04 18:27 | disposition home or self-care (01) | DRG 291 ==
LOC: ED 09-03 00:38 → PCU 09-03 00:57
PROVIDERS: Nurse Practitioner Family; Admitting Provider Hospitalist; Emergency Provider Student in an Organized Health Care Education/Training Program; PCP Family Medicine
DX: I13.0 Hypertensive heart and chronic kidney disease with heart failure and stage 1 through stage 4 chronic kidney disease, or unspecified chronic kidney disease (principal); I50.31 Acute diastolic (congestive) heart failure; Z68.41 Body mass index [BMI] 40.0-44.9, adult; Z91.14 Patient's other noncompliance with medication regimen; E11.22 Type 2 diabetes mellitus with diabetic chronic kidney disease; L30.4 Erythema intertrigo; E66.9 Obesity, unspecified; E83.42 Hypomagnesemia; E78.00 Pure hypercholesterolemia, unspecified; E78.5 Hyperlipidemia, unspecified; I25.10 Atherosclerotic heart disease of native coronary artery without angina pectoris; I25.2 Old myocardial infarction; I48.91 Unspecified atrial fibrillation; K21.9 Gastro-esophageal reflux disease without esophagitis; I35.0 Nonrheumatic aortic (valve) stenosis; N18.31 Chronic kidney disease, stage 3a; Z87.891 Personal history of nicotine dependence; Z95.1 Presence of aortocoronary bypass graft; I65.29 Occlusion and stenosis of unspecified carotid artery; Z87.19 Personal history of other diseases of the digestive system; Z79.02 Long term (current) use of antithrombotics/antiplatelets; Z79.899 Other long term (current) drug therapy
CPT/HCPCS: 71045; 80048; 83735; 83880; 84443; 84484; 85025; 85379; 93005; 93306; 97162; 97166; 97802; 99285; Q9957; A4216; C8929; J1940; J2405

== ENCOUNTER → 2020-10-13 | Outpatient (CLI) | payer MEDICARE, SELFPAY ==
[2020-09-03 01:20] VITALS: BMI 41.8
[2020-10-13 13:05] LABS: International Normalized Ratio 1.9
[2020-10-13 13:16] LABS: Hemoglobin A1c 6.4 % (3.8-5.6)
[2020-10-13 13:29] LABS: Cholesterol 126 mg/dL (200); High Density Lipoprotein 31 mg/dL; Triglycerides 182 mg/dL; Very Low Density Lipoprotein 36 mg/dL (5-40)
== END | disposition home or self-care (01) ==
PROVIDERS: PCP Family Medicine; Visit Provider Family Medicine
DX: E78.5 Hyperlipidemia, unspecified (principal); E11.9 Type 2 diabetes mellitus without complications; Z79.01 Long term (current) use of anticoagulants; Z51.81 Encounter for therapeutic drug level monitoring; I10 Essential (primary) hypertension
CPT/HCPCS: 80061; 83036; 85610

== ENCOUNTER → 2020-10-16 | Outpatient (CLI) | payer MEDICARE, SELFPAY ==
[2020-09-03 01:20] VITALS: BMI 41.8
[2020-10-16 11:13] LABS: International Normalized Ratio 3.4; Prothrombin Time (Protime)PT. 33.3 SECONDS (11.7-14.9)
== END | disposition home or self-care (01) ==
LOC: LABSPEC 10:37
PROVIDERS: PCP Family Medicine; Visit Provider Family Medicine
DX: Z79.01 Long term (current) use of anticoagulants (principal); Z51.81 Encounter for therapeutic drug level monitoring
CPT/HCPCS: 85610

== ENCOUNTER → 2020-10-23 | Outpatient (CLI) | payer MEDICARE, SELFPAY ==
[2020-09-03 01:20] VITALS: BMI 41.8
[2020-10-23 12:31] LABS: International Normalized Ratio 3.7; Prothrombin Time (Protime)PT. 35.5 SECONDS (11.7-14.9)
== END | disposition home or self-care (01) ==
LOC: LABSPEC 11:57
PROVIDERS: PCP Family Medicine; Referring Provider Family Medicine; Visit Provider Family Medicine
DX: Z51.81 Encounter for therapeutic drug level monitoring (principal); Z79.01 Long term (current) use of anticoagulants
CPT/HCPCS: 85610

== ENCOUNTER 2021-05-15 00:24 | Emergency (ER) | payer MEDICARE, SELFPAY ==
[2021-05-15 00:24] VITALS: BP 173/83
[2021-05-15 00:25] VITALS: PULSE 67; RESP 15; TEMP 36.4; O2SAT 100; BMI 38.9
--- NOTE | 2021-05-15 00:46 | RAD_ITS ---
STUDY: X-RAY - UNILATERAL RIBS ( RIGHT ) WITH CHEST REASON FOR EXAM: Male, 86 years old. pain TECHNIQUE - RIBS: 4 view(s) of the ribs. TECHNIQUE - CHEST: Single AP portable view of the chest. COMPARISON: None. FINDINGS - RIBS: Normal visualized ribs without a demonstrated fracture. FINDINGS - CHEST: The lungs are clear and expanded. There is no demonstrated pleural abnormality. Sternal cerclage wires and vascular clips are present from a prior sternotomy and coronary artery bypass graft procedure (CABG). Normal mediastinum and sergio. Normal visualized pulmonary arteries. Normal visualized aortic arch and descending thoracic aorta. Normal visualized thoracic spine. There is degenerative osteoarthritis of the bilateral shoulders. There is no demonstrated abnormality of the visualized soft tissue structures of the upper abdomen. RAD/Ribs Uni Min 3V w/PA Chest IMPRESSION: RIBS: Normal x-ray examination of the ribs. CHEST: Normal x-ray examination of the chest. Electronically Signed: Janee Reese MD at 3:39 EST Tel , Service support ,
--- NOTE | 2021-05-15 00:46 | RAD_ITS ---
STUDY: X-RAY - THORACIC SPINE REASON FOR EXAM: Male, 86 years old. pain TECHNIQUE: 3 view(s) of the thoracic spine were obtained. COMPARISON: None. FINDINGS: Normal kyphosis of the thoracic spine. There is no substantial scoliosis. There is multilevel endplate spondylosis of the thoracic vertebrae. There is multilevel disc space narrowing of the thoracic spine. The soft tissue structures are unremarkable. RAD/Thoracic Spine 3 Views IMPRESSION: There is multilevel endplate spondylosis of the thoracic vertebrae. There is multilevel disc space narrowing of the thoracic spine. Electronically Signed: Janee Reese MD at 3:11 EST Tel , Service support ,
[2021-05-15] MEDS: Morphine 4 MG/ML Syringe IM (00:52)
[2021-05-15] MEDS: Ondansetron ODT 4 MG Tablet PO (00:53)
[2021-05-15] MEDS: Haloperidol Lactate 5 MG/ML Vial 2 MG IM (01:57)
--- NOTE | 2021-05-15 02:30 | RAD_ITS ---
STUDY: X-RAY - LUMBAR SPINE REASON FOR EXAM: Male, 86 years old. pain TECHNIQUE: 2 view(s) of the lumbar spine were obtained. COMPARISON: None FINDINGS: There is reversal of the normal lumbar lordosis. There is no substantial scoliosis. Mild old compression fractures at L2, L3, L4. There is multilevel endplate spondylosis of the lumbar vertebrae. There is multi-level degenerative disc disease with multi-level disc space narrowing. The soft tissue structures are unremarkable. RAD/Lumbar Spine 2 or 3 Views IMPRESSION: Degenerative changes of the spine, as detailed above. Electronically Signed: Janee Reese MD at 3:43 EST Tel , Service support ,
--- NOTE | 2021-05-15 03:59 | EX.ED.DYSGE1 ---
HPI History of Present Illness Chief Complaint: Back Narrative Narrative: Patient is an 86-year-old male who lives at home. He states on Tuesday he was in his bathroom when he lost his balance and fell striking his back on the tub. He denies hitting his head or any loss of consciousness. He does report blood thinner use. He states that he was able to get back up and ambulate following the trauma and did not think much of this. He reports there is been no blood in his urine or stool and he denies any headache or change in vision. He states that he has noticed some increasing pain in his back which makes it difficult for him to lie down. He reports that the pain has slowly been increasing and secondary to this he presents for evaluation. [facility] Medical History (Updated 05/15/21 @ 04:[address] Matty Osei, ) Atherosclerotic heart disease of [place] coronary artery without angina pectoris Benign essential hypertension Bilateral carotid bruits Carotid artery stenosis Congestive heart failure (CHF) DM type 2 (diabetes mellitus, type 2) GERD (gastroesophageal reflux disease) History of non-ST elevation myocardial infarction (NSTEMI) (06/14/06) Hyperlipidemia Left atrial enlargement Nicotine abuse Nonrheumatic aortic (valve) stenosis Obesity Rectal bleeding SBO (small bowel obstruction) Home Medications potassium chloride 20 meq PO BID 09/11/14 [History Last Taken 09/02/20] tamsulosin 0.4 mg PO QHS 09/11/14 [History Last Taken 09/01/20] carvedilol 25 mg PO BID #60 tab 09/13/14 [Rx Last Taken 09/02/20] nitroglycerin 0.4 mg SUBLINGUAL Q5M PRN 10/14/14 [History Last Taken 09/02/20] simvastatin 40 mg PO QHS 10/14/14 [History Last Taken 09/01/20] clopidogrel 75 mg tablet 75 mg PO QDAY tab 08/01/17 [History Last Taken 09/02/20] omeprazole 20 mg capsule,delayed release 20 mg PO QDAY 08/01/17 [History Last Taken 09/02/20] dutasteride 0.5 mg capsule 0.5 mg PO DAILY cap 05/04/19 [History Last Taken 09/02/20] apixaban [Eliquis] 2.5 mg PO BID #60 tab 09/04/20 [Rx Last Taken Unknown] bumetanide 1 mg PO BID #60 tab 09/04/20 [Rx Last Taken Unknown] lisinopril 20 mg PO DAILY #0 tab 09/04/20 [Rx Last Taken 09/02/20] hydrocodone-acetaminophen 1 tab PO Q6H PRN 3 Days #12 tab 05/15/21 [Rx Last Taken Unknown] Allergy/AdvReac Type Severity Reaction Status Date / Time contrast dye AdvReac Severe Unknown Uncoded 05/15/21 00:27 Family History Mother CVA (cerebral vascular accident) Father CVA (cerebral vascular accident) Sister Hypertension Surgical History (Updated 09/03/20 @ 01:33 by Tracey Madsen) H/O coronary artery bypass surgery (12/01/01) History of cholecystectomy History of coronary artery stent placement (12/17/08) History of right-sided carotid endarterectomy (10/2014) Social History Smoking Status: Former smoker alcohol intake: never substance use type: does not use diet: low salt caffeine: Yes Type: coffee Number of servings: 4 what type of physical activity do you participate in: none seatbelt use: always do you feel safe at home: Yes ROS ROS ED Constitutional Constitutional ED: Denies chills or fever(s) ENT ENT ED: Denies sore throat Cardiovascular Cardiovascular: Denies chest pain Respiratory/Chest Respiratory/Chest: Denies cough or dyspnea Gastrointestinal Gastrointestinal: Denies abdominal pain, diarrhea, nausea or vomiting Genitourinary Genitourinary ED: Denies dysuria or hematuria Musculoskeletal Musculoskeletal: Reports back pain; Denies myalgias or neck pain Integumentary Denies Abrasions or rash Neurologic Neurologic: Denies headache(s) Hematologic/Lymphatic Hematologic/Lymphatic: Reports easy bleeding and easy bruising EXAM Physical Exam Const Vital Signs: 05/15/21 00:24 05/15/21 00:25 05/15/21 04:05 Temperature 97.5 F L Temperature Source Temporal Pulse Rate 67 86 Respiratory Rate 15 18 Blood Pressure 173/83 H 118/97 H Blood Pressure Mean 113 Pulse Ox 100 95 Oxygen Delivery Method Room Air Positive well nourished, well developed and obese General Appearance ED: well developed Nutritional Appearance: obese HEENT Reports moist mucous membranes HEENT Narrative: No signs of depressed or basilar skull fracture Eyes PERRL and EOMs intact bilaterally Neck supple Neck Narrative: No bony deformity or step-off of the cervical spine no midline pain with palpation Chest Wall palpation of chest normal Resp normal respiratory effort and clear to auscultation bilaterally Resp Narrative: Breath sounds are diminished but overall clear to auscultation with no signs of distress Cardio regular rate and regular rhythm GI normal to inspection, nondistended, normoactive bowel sounds, non-tender, non-distended and no masses GI Narrative: No voluntary guarding or rigidity no pulsatile mass Auscultation: normoactive bowel sounds Palpation: soft Back/Spine Back/Spine Narrative: Patient has pain on palpation of his thoracic and lumbar spine along the midline without bony deformity or step-off. There is also ecchymosis noted along the right posterior portion of the upper ribs. There is pain with palpation at the site but no obvious bony deformity or crepitance noted. Extremity normal to inspection Neuro oriented x3 and CN's II-XII intact bilaterally Sensorium / Orientation: alert Motor Exam: strength 5/5 throughout Psych mental status grossly normal Skin Skin Narrative: Soft tissue skin with ecchymosis on the right upper posterior rib cage as documented above MDM MDM MDM Narrative Medical decision making narrative: Patient presented to the ER 4 days after a mechanical fall. He did not strike his head or have loss of consciousness but he is on blood thinners. We discussed obtaining a head CT because of this fact. Patient states he does not have a headache and did not strike his head and he does not feel there is need for head CT. He states he is concerned with the pain in his back. At this time the pain is localized to his back it does not radiate into his chest he does not have a pulsatile mass and his radial pulses are equal and symmetric indicating that his pain is musculoskeletal in origin and not a cardiac event such as a dissection. Therefore I felt only need for x-rays of the spine and chest wall at this time. X-rays revealed chronic findings without acute fracture or signs of hemothorax or pneumothorax. Patient was given pain medication and had improvement of his symptoms. He was able to walk with a steady gait with a cane. Therefore at this time with x-rays revealing age-related findings but no acute trauma changes, the fact patient does not want a head CT obtained, and the fact he is able to ambulate I do not feel there is need for further evaluation in the ER and patient can be discharged at this time with symptomatic care Radiography Diagnostic Testing: Clinical Impression(s) from Imaging Studies Ribs w/Chest X-Ray 05/15/21 00:46 IMPRESSION: RIBS: Normal x-ray examination of the ribs. CHEST: Normal x-ray examination of the chest. Electronically Signed: Janee Reese MD at 3:39 EST Tel , Service support , Thoracic Spine X-Ray 05/15/21 00:46 IMPRESSION: There is multilevel endplate spondylosis of the thoracic vertebrae. There is multilevel disc space narrowing of the thoracic spine. Electronically Signed: Janee Reese MD at 3:11 EST Tel , Service support , Lumbar Spine X-Ray 05/15/21 02:30 IMPRESSION: Degenerative changes of the spine, as detailed above. Electronically Signed: Janee Reese MD at 3:43 EST Tel , Service support , Discharge Plan Triage Chief Complaint: Back ED Provider: Matty Osei Dx/Rx/DC Orders Clinical Impression: Contusion of thoracic spine, Accidental fall Instructions: Bruises (Contusions), ED Back Pain (Acute or Chronic) Prescriptions: New hydrocodone-acetaminophen 5-325 mg tablet 1 tab PO Q6H PRN (Reason: pain) 3 Days Qty: 12 RF: 0 No Action clopidogrel 75 mg tablet 75 mg PO QDAY RF: 0 omeprazole 20 mg capsule,delayed release(DR/EC) 20 mg PO QDAY RF: 0 dutasteride 0.5 mg capsule 0.5 mg PO DAILY RF: 0 potassium chloride 20 MEQ tablet 20 meq PO BID RF: 0 tamsulosin 0.4 MG capsule,extended release 24hr 0.4 mg PO QHS RF: 0 carvedilol 25 MG tablet 25 mg PO BID Qty: 60 RF: 6 simvastatin 40 MG tablet 40 mg PO QHS RF: 0 nitroglycerin 0.4 MG tablet 0.4 mg SUBLINGUAL Q5M PRN (Reason: Chest Pain) RF: 0 Eliquis 2.5 mg Tablet 2.5 mg PO BID Qty: 60 RF: 0 bumetanide 0.5 mg Tablet 1 mg PO BID Qty: 60 RF: 0 lisinopril 20 MG tablet 20 mg PO DAILY Qty: 0 RF: 0 Primary Care Provider: Tommy Kaur Referrals: Tommy Kaur MD [Primary Care Provider] - Activity Restrictions/Additional Instructions: If there is no symptom improvement over the next 5 to 7 days with your pain medication please return to the ER or see your family doctor to discuss need for further imaging studies Disposition Disposition: Home, Self Care
[2021-05-15 04:05] VITALS: BP 118/97; PULSE 86; RESP 18; O2SAT 95
== END 2021-05-15 05:21 | disposition home or self-care (01) ==
PROVIDERS: Emergency Provider Emergency Medicine; PCP Family Medicine; Visit Provider Emergency Medicine
DX: S20.229A Contusion of unspecified back wall of thorax, initial encounter (principal); I50.9 Heart failure, unspecified; I11.0 Hypertensive heart disease with heart failure; E78.5 Hyperlipidemia, unspecified; I25.10 Atherosclerotic heart disease of native coronary artery without angina pectoris; E66.9 Obesity, unspecified; I25.2 Old myocardial infarction; Z95.5 Presence of coronary angioplasty implant and graft; W19.XXXA Unspecified fall, initial encounter; Z87.891 Personal history of nicotine dependence; Z79.899 Other long term (current) drug therapy
CPT/HCPCS: 71101; 72072; 72100; 96372; 99284

== ENCOUNTER 2021-06-22 14:25 | Observation (INO) | payer MEDICARE, SELFPAY ==
[2021-06-22 14:26] VITALS: BP 106/61; PULSE 80; RESP 16; TEMP 36.4; O2SAT 98; BMI 32.5
--- NOTE | 2021-06-22 14:33 | RAD_ITS ---
STUDY: X-RAY CHEST REASON FOR EXAM: Male, 86 years old. Sob TECHNIQUE: Single AP portable view of the chest. COMPARISON: Comparison is made with prior study dated 09/02/2020. FINDINGS: EKG electrodes are seen. The lungs are clear and expanded. There is no demonstrated pleural abnormality. Sternal cerclage wires and vascular clips are present from a prior sternotomy and coronary artery bypass graft procedure (CABG). Mild cardiomegaly. Normal mediastinum and sergio. Normal visualized pulmonary arteries. There is atherosclerotic calcification of the aortic arch with tortuosity. Normal visualized thoracic spine. There is degenerative osteoarthritis of the bilateral shoulders. There is no demonstrated abnormality of the visualized soft tissue structures of the upper abdomen. RAD/Chest 1 View (Portable) IMPRESSION: Prior CABG. There is cardiomegaly. The lungs are clear. Electronically Signed: Carson Ladd MD at 15:11 EST ,
--- NOTE | 2021-06-22 14:33 | EKG12_ITS ---
Test Reason : EDEMA Blood Pressure : / mmHG Vent. Rate : 082 BPM Atrial Rate : 115 BPM P-R Int : 000 ms QRS Dur : 098 ms QT Int : 404 ms P-R-T Axes : 000 -57 154 degrees QTc Int : 472 ms Atrial fibrillation Left axis deviation Anterior infarct , age undetermined ST & T wave abnormality, consider lateral ischemia Abnormal ECG Confirmed by GINNY HIGHTOWER, BLANCA ([id number]), scientific publications editor BIB CENTENO ([id number]) on 06/24/2021 11:46:04 AM Referred By: YUE Confirmed By:BLANCA GROSS MD
--- NOTE | 2021-06-22 14:35 | EX.ED.DYSGE1 ---
HPI History of Present Illness Chief Complaint: Edema Detail of Chief Complaint: Leg edema, weeping, fall today Informant: patient Narrative Narrative: Patient reports increased swelling to his lower extremities over the past month or so. He states is not been able to lie down flat to sleep. Couple days ago he noted water leaking from his legs. Today he fell in the bathroom and struck his back against the edge of the bathtub. Patient denied striking his head. He denies chest pain. No fever or chills. [facility] Medical History Atherosclerotic heart disease of [place] coronary artery without angina pectoris Atrial fibrillation Benign essential hypertension Bilateral carotid bruits Carotid artery stenosis Congestive heart failure (CHF) DM type 2 (diabetes mellitus, type 2) GERD (gastroesophageal reflux disease) History of non-ST elevation myocardial infarction (NSTEMI) (06/14/06) Hyperlipidemia Left atrial enlargement Nicotine abuse Nonrheumatic aortic (valve) stenosis Obesity Rectal bleeding SBO (small bowel obstruction) Home Medications potassium chloride 20 meq PO BID 09/11/14 [History Last Taken 09/02/20] tamsulosin 0.4 mg PO QHS 09/11/14 [History Last Taken 09/01/20] carvedilol 25 mg PO BID #60 tab 09/13/14 [Rx Last Taken 09/02/20] nitroglycerin 0.4 mg SUBLINGUAL Q5M PRN 10/14/14 [History Last Taken 09/02/20] simvastatin 40 mg PO QHS 10/14/14 [History Last Taken 09/01/20] clopidogrel 75 mg tablet 75 mg PO QDAY tab 08/01/17 [History Last Taken 09/02/20] omeprazole 20 mg capsule,delayed release 20 mg PO QDAY 08/01/17 [History Last Taken 09/02/20] dutasteride 0.5 mg capsule 0.5 mg PO DAILY cap 05/04/19 [History Last Taken 09/02/20] apixaban [Eliquis] 2.5 mg PO BID #60 tab 09/04/20 [Rx Last Taken Unknown] bumetanide 1 mg PO BID #60 tab 09/04/20 [Rx Last Taken Unknown] lisinopril 20 mg PO DAILY #0 tab 09/04/20 [Rx Last Taken 09/02/20] hydrocodone-acetaminophen 1 tab PO Q6H PRN 3 Days #12 tab 05/15/21 [Rx Last Taken Unknown] Allergy/AdvReac Type Severity Reaction Status Date / Time contrast dye AdvReac Severe Unknown Uncoded 06/22/21 14:27 Family History Mother CVA (cerebral vascular accident) Father CVA (cerebral vascular accident) Sister Hypertension Surgical History H/O coronary artery bypass surgery (12/01/01) History of cholecystectomy History of coronary artery stent placement (12/17/08) History of right-sided carotid endarterectomy (10/2014) Social History Smoking Status: Former smoker alcohol intake: never substance use type: does not use diet: low salt caffeine: Yes Type: coffee Number of servings: 4 what type of physical activity do you participate in: none seatbelt use: always do you feel safe at home: Yes ROS ROS ED Constitutional Constitutional ED: Denies chills or fever(s) Eyes Eyes: Denies change in vision ENT ENT ED: Denies sore throat Cardiovascular Cardiovascular: Denies chest pain Respiratory/Chest Respiratory/Chest: Reports dyspnea; Denies cough Gastrointestinal Gastrointestinal: Denies abdominal pain, nausea or vomiting Genitourinary Genitourinary ED: Denies dysuria Musculoskeletal Musculoskeletal: Reports arthralgias and back pain Integumentary Reports rash and other Details: Bilateral lower extremity wounds Neurologic Neurologic: Denies headache(s) Allergic/Immunologic Allergic/Immunologic ED: Denies urticaria EXAM Physical Exam Const Vital Signs: 06/22/21 14:26 06/22/21 14:30 Temperature 97.6 F L Temperature Source Temporal Pulse Rate 80 Respiratory Rate 16 Respiratory Pattern Normal Blood Pressure 106/61 Blood Pressure Mean 76 Pulse Ox 98 Oxygen Delivery Method Room Air Positive well nourished and well developed General Appearance ED: well developed HEENT Reports moist mucous membranes Eyes PERRL and EOMs intact bilaterally Neck supple Chest Wall inspection of chest normal and palpation of chest normal Resp normal respiratory effort Auscultation: diminished lung sounds Cardio regular rate and regular rhythm GI non-tender Palpation: soft Back/Spine Back/Spine Narrative: No reproducible tenderness of the thoracic or lumbar spine. No ecchymosis, abrasions, sign of trauma. Extremity Extremity Narrative: 4+ bilateral lower extremity edema. Scabbed lesions to the bilateral lower extremities. No evidence of cellulitis. General Extremety ED: Yes edema General Extremity: edema Neuro oriented x3 Sensorium / Orientation: alert Psych mental status grossly normal MDM MDM MDM Narrative Medical decision making narrative: EKG, chest x-ray, lab work obtained. Lab Data Attestation: I reviewed the patient's lab results. Labs: Laboratory Results - last 24 hr 06/22/21 06/22/21 06/22/21 14:33 14:46 14:46 WBC 11.8 H RBC 4.44 L Hgb 12.2 L Hct 38.5 L MCV 86.7 MCH 27.5 MCHC 31.7 L RDW Std Deviation 45.1 H RDW Coeff of Madonna 14.2 Plt Count 355 MPV 10.1 Immature Gran % (Auto) 0.800 Neut % (Auto) 82.4 H Lymph % (Auto) 11.4 L Noble % (Auto) 5.4 Eos % (Auto) 0.0 Baso % (Auto) 0.0 Absolute Neuts (auto) 9.7 H Absolute Lymphs (auto) 1.35 Nucleated RBC % 0 Sodium 140 Potassium 2.7 L* Chloride 101 Carbon Dioxide 31.0 Anion Gap 8 BUN 32 H Creatinine 1.74 H Estim Creat Clear Calc 25.99 Est GFR (MDRD) Af Amer 48 L Est GFR (MDRD) Non-Af 40 L BUN/Creatinine Ratio 18.4 Glucose 178 H Calcium 7.5 L B-Natriuretic Peptide 562.3 H Radiography Chest X-Ray - ED: 1 View, Read by ED Physician and Chronic Changes Diagnostic Testing: Clinical Impression(s) from Imaging Studies Chest X-Ray 06/22/21 14:33 IMPRESSION: Prior CABG. There is cardiomegaly. The lungs are clear. Electronically Signed: Carson Ladd MD at 15:11 EST , EKG Initial EKG: Attestation: I personally reviewed and interpreted this EKG as follows: Interpretation: Atrial Fibrillation (A. fib at 82 with no acute ischemia.) Treatment and Re-Evaluation Comments:: Patient's lab work reviewed. White count is mildly elevated 11.8. Chemistry studies significant for low potassium at 2.7. This is replaced orally. BNP is 562. Chest x-ray reveals clear lung marcelo with no sign of CHF. I discussed test results with the patient. He is having more trouble getting around at home and lives live alone. He did fall today. He is willing to go to a rehab facility to help get his strength back up but does not feel safe at home. Once he is evaluated by hospitalist patient's legs will be wrapped with Ronak wraps. Discharge Plan Triage Chief Complaint: Edema ED Provider: Hina Odonnell Dx/Rx/DC Orders Clinical Impression: Bilateral edema of lower extremity, Hypokalemia, Generalized weakness Prescriptions: No Action clopidogrel 75 mg tablet 75 mg PO QDAY RF: 0 omeprazole 20 mg capsule,delayed release(DR/EC) 20 mg PO QDAY RF: 0 dutasteride 0.5 mg capsule 0.5 mg PO DAILY RF: 0 potassium chloride 20 MEQ tablet 20 meq PO BID RF: 0 tamsulosin 0.4 MG capsule,extended release 24hr 0.4 mg PO QHS RF: 0 carvedilol 25 MG tablet 25 mg PO BID Qty: 60 RF: 6 simvastatin 40 MG tablet 40 mg PO QHS RF: 0 nitroglycerin 0.4 MG tablet 0.4 mg SUBLINGUAL Q5M PRN (Reason: Chest Pain) RF: 0 Eliquis 2.5 mg Tablet 2.5 mg PO BID Qty: 60 RF: 0 bumetanide 0.5 mg Tablet 1 mg PO BID Qty: 60 RF: 0 lisinopril 20 MG tablet 20 mg PO DAILY Qty: 0 RF: 0 hydrocodone-acetaminophen 5-325 mg tablet 1 tab PO Q6H PRN (Reason: pain) 3 Days Qty: 12 RF: 0 Primary Care Provider: Tommy Kaur Referrals: Tommy Kaur MD [Primary Care Provider] - Disposition Disposition: Acute Care Hospital [facility]
[2021-06-22 14:57] LABS: Absolute Lymphocyte Count 1.35 X10^3/uL (0.83-4.51); Absolute Neutrophil Count 9.7 X10^3/uL (2.0-7.7); Hematocrit 38.5 % (40-54); Hemoglobin 12.2 g/dL (13.0-16.5); Lymphocyte # 1.35 X10^3/ul (0.83-4.51); Lymphocyte % 11.4 % (19-41); Mean Corp Hgb Conc 31.7 g/dL (32-36); Mean Corpuscular Hgb 27.5 pg (27.0-32.0); Mean Corpuscular Volume 86.7 fL (80-94); Mean Platelet Vol. 10.1 fl (6.2-12.0); Monocyte# 0.64 X10^3/uL; Monocyte% 5.4 % (0-10); NRBC Flagged by Analyzer 0 % (0-5); Neutrophil # 9.74 X10^3/uL (2.7-7.7); Neutrophil % 82.4 % (47-70); Platelet Count 355 K/mm3 (150-450); RBC Distribution Width CV 14.2 % (11.6-14.6); RBC Distribution Width SD 45.1 fl (35.1-43.9); Red Blood Count 4.44 M/mm3 (4.6-6.2); White Blood Count 11.8 K/mm3 (4.4-11.0)
[2021-06-22 15:04] LABS: Anion Gap 8 (5-15); BUN 32 mg/dL (7-18); BUN/Creat Ratio 18.4 RATIO (10-20); Calcium,Total 7.5 mg/dL (8.5-10.1); Chloride 101 mmol/L (98-107); Creatinine, Serum 1.74 mg/dL (0.70-1.30); EST Glomerular Filtration Rate 40 mL/min (>60); Est Glom Filt Rate - Afr Amer 48 mL/min (>60); Estimated Creatinine Clearance 25.99 ml/min; Glucose 178 mg/dL (74-106); Potassium 2.7 mmol/L (3.5-5.1); Sodium Level 140 mmol/L (136-145)
[2021-06-22 15:18] LABS: BNP,B-Type NATRIURETIC PEPTIDE 562.3 pg/mL (0-100)
[2021-06-22] MEDS: Potassium Chloride Oral Tablet 20 MEQ 40 MEQ PO ×2 (15:45→22:17)
--- NOTE | 2021-06-22 17:43 | PCM.HP.STD ---
[facility] - General General Date of Admission: 06/22/21 Date of Service: 06/22/21 Chief Complaint: Bilateral leg swelling for past 1 month along with oozing in his calf. HPI Narrative BLANCA RODRIGUEZ, is a 86 M with multiple comorbidities as mentioned above including coronary artery status post CABG about 20 years ago and stent last 1 in came to ER with bilateral leg swelling below thigh level for about 1 month. Patient also has oozing from both legs most likely from foot and lower legs. He had both great saphenous vein taken from both lower extremities for CABG in the past. He denies chest pain, shortness of breath at rest. Easily gets tired on walking within home. He is not able to climb stairs for last few months. Easily gets short of breath, dyspnea on exertion on mild exertion, walking within home on same level of floor. As per ED physician, he also fell in the bathroom and struck his back against the edge of the bathtub. Denies hitting his head or major injury although he denied me fall today. He denies dizziness, lightheadedness, syncope. He further added that he fell down about a month ago but denies any major injury. As per EMR, he was brought to ER by squad on May 20 when he fell down in the living room. Patient follows Dr. Boles last seen in the office in September 2018 almost 3 years ago In ER, his heart rate 80/min, blood pressure 106/61. No tachypnea or hypoxia. Chest x-ray image independently reviewed shows evidence of CABG, cardiomegaly but no acute infiltrate. Twelve-lead EKG been reviewed shows A. fib, LAD, QTC 472 ms, QRS 98 ms. Old anterior infarct. Initial lab shows severe hypokalemia, acute kidney injury [facility] Medical History Atherosclerotic heart disease of [place] coronary artery without angina pectoris Atrial fibrillation Benign essential hypertension Bilateral carotid bruits Carotid artery stenosis Congestive heart failure (CHF) DM type 2 (diabetes mellitus, type 2) GERD (gastroesophageal reflux disease) History of non-ST elevation myocardial infarction (NSTEMI) (06/14/06) Hyperlipidemia Left atrial enlargement Nicotine abuse Nonrheumatic aortic (valve) stenosis Obesity Rectal bleeding SBO (small bowel obstruction) Home Medications potassium chloride 20 meq PO BID 09/11/14 [History Last Taken 06/21/21] tamsulosin 0.4 mg PO QHS 09/11/14 [History Last Taken 06/21/21] carvedilol 25 mg PO BID #60 tab 09/13/14 [Rx Last Taken 06/21/21] nitroglycerin 0.4 mg SUBLINGUAL Q5M PRN 10/14/14 [History Last Taken 09/02/20] simvastatin 40 mg PO QHS 10/14/14 [History Last Taken 06/21/21] clopidogrel 75 mg tablet 75 mg PO QDAY tab 08/01/17 [History Last Taken 06/21/21] omeprazole 20 mg capsule,delayed release 20 mg PO QDAY 08/01/17 [History Last Taken 06/21/21] dutasteride 0.5 mg capsule 0.5 mg PO DAILY cap 05/04/19 [History Last Taken 06/21/21] apixaban [Eliquis] 2.5 mg PO BID #60 tab 09/04/20 [Rx Last Taken 06/21/21] bumetanide 1 mg PO BID #60 tab 09/04/20 [Rx Last Taken 06/21/21] lisinopril 20 mg PO DAILY #0 tab 09/04/20 [Rx Last Taken 06/21/21] hydrocodone-acetaminophen 1 tab PO Q6H PRN 3 Days #12 tab 05/15/21 [Rx Last Taken 06/21/21] Allergy/AdvReac Type Severity Reaction Status Date / Time contrast dye AdvReac Severe Unknown Uncoded 06/22/21 14:27 Family History Mother CVA (cerebral vascular accident) Father CVA (cerebral vascular accident) Sister Hypertension Surgical History H/O coronary artery bypass surgery (12/01/01) History of cholecystectomy History of coronary artery stent placement (12/17/08) History of right-sided carotid endarterectomy (10/2014) Social History Smoking Status: Former smoker alcohol intake: never substance use type: does not use diet: low salt caffeine: Yes Type: coffee Number of servings: 4 what type of physical activity do you participate in: none seatbelt use: always do you feel safe at home: Yes ROS ROS Narrative Constitutional: Reports fatigue and weakness HEENT: Reports systems reviewed and no addt'l complaints, except as documented Respiratory/Chest: Denies chest pain, shortness of breath at rest. Rest admission HPI Gastrointestinal: Denies coffee ground emesis, hematemesis or vomiting Genitourinary: Denies burning urination or new urinary tract symptoms Musculoskeletal: Bilateral leg swelling. Complain of back pain mainly positional, chronic in nature. Limited ROM of legs, lower leg pain mainly in feet because of swelling Neurologic: Denies seizure-like activity skin: Multiple scabbed over forehead and lower legs. Endocrinology: Diabetes mellitus type 2. Reports systems reviewed and no addt'l complaints, except as documented Hematologic/Lymphatic: Reports systems reviewed and no addt'l complaints, except as documented Rest 14 ROS are negative except as mentioned in HPI Vital Signs Vital Signs Vital Signs: 06/22/21 14:26 06/22/21 14:30 Temperature 97.6 F L Temperature Source Temporal Pulse Rate 80 Respiratory Rate 16 Respiratory Pattern Normal Blood Pressure 106/61 Blood Pressure Mean 76 Pulse Ox 98 Oxygen Delivery Method Room Air Weight Weight: 189 lb 9.561 oz Body Mass Index (BMI) 32.5 Physical Exam Narrative General: Alert, Oriented x3, Cooperative HEENT: Atraumatic, PERRLA, EOMI, Normocephalic Oral: No Gingival or Mucosal Lesions/ Ulcerations Neck: Supple, No JVD, Negative Carotid Bruits Lungs: Air entry diminished in bilateral lung bases. No crepitation/rhonchi Cardiovascular: Irregular rhythm, chronic A. fib, Normal S1, Normal S2, systolic murmur over LLSB Abdomen: Bowel Sounds Present, Soft, Non Tender, Non-Distended : Penis buried in his scrotum. Groin is wet probably urinary incontinence. No renal angle tenderness. No suprapubic tenderness. Extremities: Bilateral 3+ edema from thigh level below. Capillary Refill Less than 3 Seconds Skin: Multiple scabbed over lower legs and forehead. Mild bulging around lower one third of legs and feet. Bilateral groin rash, erythrasma Musculoskeletal/spine: Mild tenderness over lower one third of legs and feet. ROM restricted due to swelling. Tenderness over lower back, lumbar spine, chronic Neurological: Cranial nerves II-XII grossly intact, DTR 2+/4 and Symmetrical Psych/Mental Status: Flat affect. Results Lab / Micro Data Result Diagrams: 06/22/21 14:46 06/22/21 14:33 Labs: Laboratory Results - last 24 hr 06/22/21 14:33: Sodium 140, Potassium 2.7 L*, Chloride 101, Carbon Dioxide 31.0, Anion Gap 8, BUN 32 H, Creatinine 1.74 H, Estim Creat Clear Calc 25.99, Est GFR (MDRD) Af Amer 48 L, Est GFR (MDRD) Non-Af 40 L, BUN/Creatinine Ratio 18.4, Glucose 178 H, Calcium 7.5 L 06/22/21 14:46: WBC 11.8 H, RBC 4.44 L, Hgb 12.2 L, Hct 38.5 L, MCV 86.7, MCH 27.5, MCHC 31.7 L, RDW Std Deviation 45.1 H, RDW Coeff of Madonna 14.2, Plt Count 355, MPV 10.1, Immature Gran % (Auto) 0.800, Neut % (Auto) 82.4 H, Lymph % (Auto) 11.4 L, Benson % (Auto) 5.4, Eos % (Auto) 0.0, Baso % (Auto) 0.0, Absolute Neuts (auto) 9.7 H, Absolute Lymphs (auto) 1.35, Nucleated RBC % 0 06/22/21 14:46: B-Natriuretic Peptide 562.3 H Radiology Impression Chest X-Ray 06/22/21 14:33 IMPRESSION: Prior CABG. There is cardiomegaly. The lungs are clear. Electronically Signed: Carson Ladd MD at 15:11 EST , Assessment & Plan Assessment/Plan (1) Bilateral edema of lower extremity: (2) Hypokalemia: PLAN: 1. Bilateral leg swelling with history of chronic HFpEF: Patient is being admitted on [facility] with telemetry. Patient had 2D echo in August 2020 which shows EF 60%, LA moderately enlarged, trivial MR, trivial TR, moderate aortic stenosis. BNP elevated but chest x-ray, lungs looks clear with no acute change. IV Lasix 40 mg once daily and titrate as per hemodynamic parameters, kidney function electrolytes. Heart failure core measures including intake and output, fluid restriction less than 1500 mL, daily weight monitoring, kidney and electrolytes monitoring. Bilateral Ronak wrap bandage. The patient was last admitted in August 2020 for acute hypoxic respiratory insufficiency due to acute on chronic HFpEF. At that time A. fib was found. 2. Coronary artery status post CABG and stents chronic A. fib on warfarin: Heart rate is controlled. Patient on carvedilol continued. Patient on apixaban 2.5 mg twice daily because of age and kidney dysfunction. 3. Acute kidney injury on chronic kidney disease, stage IIIb severe hypokalemia: During previous hospitalization patient BUN/creatinine was 23/1.49, serum creatinine clearance was 32 mL/min. Today BUN/creatinine 32/1.74. Monitor kidney function daily any further worsening, hide mill man consulted could be considered. I think his chronic kidney disease mostly due to cardiorenal disease. Denies recent decrease in urine output, burning micturition. Patient potassium is 2.9. Check magnesium and phosphorus. Potassium is getting replaced. 4. Recurrent fall with a scab over lower legs and forehead. PT and OT ordered. 5. Diabetes mellitus type 2: Accu-Chek before meals and at bedtime and cover with Humalog sliding scale. 6. Other comorbidities include hypertension, dyslipidemia, obesity: Home medication reconciliation done. VTE prophylaxis: On apixaban as mentioned above. Discontinue if platelet count drops less than 50,000 or hemoglobin less than 8 g%. Living will/advanced directive/end of life care: Patient does have living will or advanced directive. His son is power of software specialist for health. His about 3 years ago. After discussion of benefits/risks procedures involved with full code, DNR CC arrest and DNR CC, the patient opted for DNRCC arrest with no intubation. Patient doesn't want artificial life support including intubation, tube feed, ventilator and/chest compression, central venous catheter, vasopressor and DC shock if needed Total time spent in [id number] encounter in discussion of advanced directive 16 minutes. Charges/Coding Visit Charges Inpatient E&M: 40287 Init Hosp L3 Procedures Hospitalists Procedures: 52357 Advncd Care Plan 30 Min
[2021-06-22 18:29] VITALS: BP 111/84; PULSE 91; RESP 15; O2SAT 98
[2021-06-22 18:54] VITALS: BP 152/82; PULSE 88; RESP 18; TEMP 36.6; O2SAT 99
[2021-06-22 18:55] VITALS: BMI 31.3
[2021-06-22 18:55] LABS: Phosphorus 3.3 mg/dL (2.5-4.9)
[2021-06-22] MEDS: Furosemide 40 MG/4 ML Vial IV (18:59)
[2021-06-22] MEDS: 0.9% Saline Lock 10 ML Syringe IV (19:15)
[2021-06-22] MEDS: Morphine 2 MG/ML Syringe IV (19:15)
[2021-06-22 19:28] VITALS: PULSE 84
[2021-06-22 20:30] VITALS: O2SAT 96
[2021-06-22] MEDS: Tamsulosin HCl 0.4 MG Capsule PO (20:53)
[2021-06-22] MEDS: Atorvastatin Calcium 40 MG Tablet PO (20:53)
[2021-06-22] MEDS: Carvedilol 25 MG Tablet PO (20:53)
[2021-06-22] MEDS: APIXABAN 2.5 MG TABLET PO (20:53)
[2021-06-22] MEDS: Acetaminophen 325 MG Tablet 650 MG PO (20:54)
[2021-06-22] MEDS: oxyCODONE 5 MG Tablet PO (20:54)
[2021-06-22 21:05] LABS: Bedside Glucose 146 mg/dL (70-110)
[2021-06-22] MEDS: Nystatin Powder 15gm Bottle 1 APPLIC TOPICAL (21:09)
[2021-06-22 21:22] LABS: Potassium 2.9 mmol/L (3.5-5.1)
[2021-06-23] VITALS (11 sets, daily range): BP systolic 85–128; BP diastolic 39–62; PULSE 60–78; RESP 14–18; TEMP 36.6–36.8; O2SAT 94–100
[2021-06-23 06:02] LABS: Absolute Lymphocyte Count 1.46 X10^3/uL (0.83-4.51); Basophil# 0.02 X10^3/uL; Basophil% 0.1 % (0-1); Eosinophil# 0.02 X10^3/uL; Eosinophils% 0.1 % (0-5); Hematocrit 35.1 % (40-54); Hemoglobin 11.3 g/dL (13.0-16.5); Lymphocyte # 1.46 X10^3/ul (0.83-4.51); Lymphocyte % 10.9 % (19-41); Mean Corp Hgb Conc 32.2 g/dL (32-36); Mean Corpuscular Hgb 28.5 pg (27.0-32.0); Mean Corpuscular Volume 88.4 fL (80-94); Mean Platelet Vol. 10.9 fl (6.2-12.0); Monocyte# 0.79 X10^3/uL; Monocyte% 5.9 % (0-10); NRBC Flagged by Analyzer 0 % (0-5); Neutrophil % 81.8 % (47-70); Platelet Count 285 K/mm3 (150-450); RBC Distribution Width CV 14.2 % (11.6-14.6); RBC Distribution Width SD 45.5 fl (35.1-43.9); Red Blood Count 3.97 M/mm3 (4.6-6.2); White Blood Count 13.5 K/mm3 (4.4-11.0)
[2021-06-23] MEDS: Nystatin Powder 15gm Bottle 1 APPLIC TOPICAL ×3 (06:40→20:39)
[2021-06-23 06:50] LABS: Bedside Glucose 125 mg/dL (70-110)
[2021-06-23 07:19] LABS: Anion Gap 7 (5-15); BUN 35 mg/dL (7-18); BUN/Creat Ratio 23.3 RATIO (10-20); Calcium,Total 7.1 mg/dL (8.5-10.1); Chloride 102 mmol/L (98-107); Cholesterol 135 mg/dL (200); EST Glomerular Filtration Rate 47 mL/min (>60); Est Glom Filt Rate - Afr Amer 57 mL/min (>60); Estimated Creatinine Clearance 30.15 ml/min; Glucose 116 mg/dL (74-106); High Density Lipoprotein 28 mg/dL; Sodium Level 141 mmol/L (136-145); Thyroid Stim Hormone (TSH) 0.46 uIU/mL (0.358-3.74); Triglycerides 126 mg/dL; Very Low Density Lipoprotein 25 mg/dL (5-40)
[2021-06-23] MEDS: APIXABAN 2.5 MG TABLET PO ×2 (08:09→20:36)
[2021-06-23] MEDS: Furosemide 40 MG/4 ML Vial IV (08:09)
[2021-06-23] MEDS: Clopidogrel Bisulfate 75 MG Tablet PO (08:09)
[2021-06-23] MEDS: 0.9% Saline Lock 10 ML Syringe IV (08:09)
[2021-06-23] MEDS: oxyCODONE 5 MG Tablet PO ×2 (08:10→15:30)
[2021-06-23] MEDS: Finasteride 5 MG Tablet PO (08:10)
[2021-06-23] MEDS: Pantoprazole Sodium 20 MG Tablet PO (08:10)
[2021-06-23] MEDS: Carvedilol 25 MG Tablet PO ×2 (08:10→20:36)
[2021-06-23] MEDS: Glucerna Shake 120 ML LIQUID PO ×2 (08:19→11:37)
--- NOTE | 2021-06-23 09:46 | PN.HOSP_ITS ---
Documented by User: Candi Whitman NP, HYDRAULIC TESTER-C 06/23/21 10:05 Subjective Subjective Patient seen and examined. Reports improvement of lower extremity swelling. States he feels generally weak and fatigued. States he fell at home 1 month ago. Objective Data Objective Data Vital Signs: Vital Signs Temp Pulse Resp BP Pulse Ox 97.8 F 78 16 121/51 H 97 06/23/21 08:00 06/23/21 08:00 06/23/21 08:00 06/23/21 08:00 06/23/21 08:00 Oxygen Delivery Method Room Air Weight: 181 lb 14.102 oz Body Mass Index (BMI) 31.3 Intake & Output: Intake and Output for Last 24 Hours 06/21/21 06/22/21 06/23/21 23:59 23:59 23:59 Intake Total 500 / 500 Output Total 500 / 500 400 / 400 Balance 0 / 0 -400 / -400 Lab / Micro Data Result Diagrams: 06/23/21 04:49 06/23/21 04:49 Labs: Laboratory Results - last 24 hr 06/22/21 14:33: Sodium 140, Potassium 2.7 L*, Chloride 101, Carbon Dioxide 31.0, Anion Gap 8, BUN 32 H, Creatinine 1.74 H, Estim Creat Clear Calc 25.99, Est GFR (MDRD) Af Amer 48 L, Est GFR (MDRD) Non-Af 40 L, BUN/Creatinine Ratio 18.4, Glucose 178 H, Calcium 7.5 L 06/22/21 14:33: Phosphorus 3.3 06/22/21 14:46: WBC 11.8 H, RBC 4.44 L, Hgb 12.2 L, Hct 38.5 L, MCV 86.7, MCH 27.5, MCHC 31.7 L, RDW Std Deviation 45.1 H, RDW Coeff of Madonna 14.2, Plt Count 355, MPV 10.1, Immature Gran % (Auto) 0.800, Neut % (Auto) 82.4 H, Lymph % (Auto) 11.4 L, Calvert % (Auto) 5.4, Eos % (Auto) 0.0, Baso % (Auto) 0.0, Absolute Neuts (auto) 9.7 H, Absolute Lymphs (auto) 1.35, Nucleated RBC % 0 06/22/21 14:46: B-Natriuretic Peptide 562.3 H 06/22/21 20:50: POC Glucose 146 H 06/22/21 21:04: Potassium 2.9 L 06/23/21 04:49: WBC 13.5 H, RBC 3.97 L, Hgb 11.3 L, Hct 35.1 L, MCV 88.4, MCH 28.5, MCHC 32.2, RDW Std Deviation 45.5 H, RDW Coeff of Madonna 14.2, Plt Count 285, MPV 10.9, Immature Gran % (Auto) 1.200 H, Neut % (Auto) 81.8 H, Lymph % (Auto) 10.9 L, Calvert % (Auto) 5.9, Eos % (Auto) 0.1, Baso % (Auto) 0.1, Absolute Neuts (auto) 11.0 H, Absolute Lymphs (auto) 1.46, Nucleated RBC % 0 06/23/21 04:49: Sodium 141, Potassium 3.0 L, Chloride 102, Carbon Dioxide 32.0, Anion Gap 7, BUN 35 H, Creatinine 1.50 H, Estim Creat Clear Calc 30.15, Est GFR (MDRD) Af Amer 57 L, Est GFR (MDRD) Non-Af 47 L, BUN/Creatinine Ratio 23.3 H, Glucose 116 H, Calcium 7.1 L, Triglycerides 126, Cholesterol 135, LDL Cholesterol 82, VLDL Cholesterol 25, HDL Cholesterol 28 L, TSH 0.46 06/23/21 06:40: POC Glucose 125 H Radiography Diagnostic Testing: Radiology Impression Chest X-Ray 06/22/21 14:33 IMPRESSION: Prior CABG. There is cardiomegaly. The lungs are clear. Electronically Signed: Carson Ladd MD at 15:11 EST , Physical Exam Const alert, oriented x3 and no apparent distress Orientation / Consciousness: awake, oriented to person, oriented to place and oriented to time HEENT normocephalic and moist oral mucous membranes Eyes PERRL, EOMs intact bilaterally and conjunctivae normal Neck no lymphadenopathy Resp clear to auscultation bilaterally Auscultation: diminished lung sounds Cardio Cardio Narrative: Atrial fibrillation, rate controlled Heart Sounds: murmur Peripheral Pulses: pulses 2+ throughout GI normal to inspection, nondistended, normoactive bowel sounds, non-tender and non-distended Extremity normal to inspection General Extremity: edema bilateral lower extremity (ronak wraps in place) Details: moderate Skin no rashes or lesions noted Skin Narrative: Multiple scabbed areas on face and upper extremities, patient noted to be picking at areas. Lesions: no lesions Rashes: no rashes Trauma: no lacerations or abrasions Neuro CN's II-XII intact bilaterally, no focal motor deficits, no sensory deficits noted and deep tendon reflexes 2+ bilaterally Psych Mood & Affect: flat affect Assessment & Plan Assessment/Plan (1) CHF (congestive heart failure): PLAN: 1. Acute on chronic heart failure with preserved ejection fraction- BNP 562. Chest x-ray unremarkable. Patient with significant lower extremity edema. IV Lasix. Strict I&O. Daily weight. Echocardiogram August 2020 demonstrated an EF of 60%, moderate to severe mitral annular calcification, moderate aortic stenosis. Ronak wraps bilateral lower extremities. 2. Paroxysmal atrial fibrillation-rate controlled. On carvedilol, Eliquis. 3. CAD with history of coronary artery bypass/angioplasty/stenting-stable, continue Plavix, statin, carvedilol, lisinopril. 4. Hypertension-stable, continue amlodipine, carvedilol, lisinopril. 5. Hyperlipidemia-continue statin. 6. Chronic kidney disease stage IIIa-stable, trend BMP. 7. Obesity-encouraged diet and lifestyle modifications. 8. BPH-on Flomax. 9. Type 2 diabetes [id number] with sliding scale insulin. 10. Debility with recurrent falls-PT/OT. Case management consult. DVT prophylaxis-Eliquis This patient was seen by LUCITA Contreras under the supervision of Dr. Hamilton. Time spent examining patient, reviewing data and subsequent management of care: 12 Minutes Documented by User: Dr. Hao Hamilton MD 06/23/21 12:31 Objective Data Lab / Micro Data Result Diagrams: 06/23/21 04:49 06/23/21 04:49 Charges/Coding Addendum Addendum: Dr. Hamilton: I personally reviewed the chart and examined the patient, and agree with the above findings. 86-year-old male with a history of diastolic heart failure presents with acute on chronic diastolic heart failure and lower extremity edema. He also developed a little bit of an YOLIS with his creatinine peaking around 1.7. Currently today he is down to 1.5, his baseline does appear to be a round 1. We will continue with IV Lasix and continue wrapping his lower extremities. Continue with PT/OT evaluation. He does state that he feels a little bit better today than he did yesterday. Clinical care time spent in all aspects of patient care: 15 minutes Visit Charges OBSV E&M: 58051 Subsequent observation care L2
--- NOTE | 2021-06-23 10:30 | CASEMGMT ---
CARLEY REY Assessment: Face to Face with pt for initial transition planning/care coordination assessment. CARLEY REY introduced self and role at [facility], pt voices understanding and consents to assessment. Pt is A/O x4 and answers all questions appropriately at this time. Pt lying in bed in no distress. Care providers, pharmacy, and demographics verified/updated. Admitting Dx: leg swelling PCP:Vincent Specialists:Elvi, cardio Preferred Pharmacy: [facility] Insurance: [facility] Prescription Benefit: yes LW/HPOA: Pt states he has a LW/DPOA and his DPOA is his son Joce Leslie. Pt is aware it is not on file at [facility] and he may bring in to be scanned into his chart. LNOK: Joce Leslie, son; Jamee Leslie, dil Living Arrangements: Pt lives alone in a mobile home with a ramp to enter. Pt reports he is I in ADL's and denies concerns at home. Pt states his neighbor assists him with bringing in his groceries. Transportation: Pt drives self and denies concerns with transportation. DME/HHC/SNF: Pt has a walker at home that he just started using in the last couple of weeks d/t having trouble getting around. Pt states he has a grab bar in the bathroom. Pt denies HHC or SNF stays. Pt states no concerns with going home at time of dc. He would be open to reviewing a list of HHC agencies for SN and therapy as he states I know I need to do something soon. Pt states no further concerns/needs. CM to follow. Advised pt to ask CM if any further question/concerns/needs arise, voices understanding. Pt Goal: Home with possible HHC Plan: Home with possible HHC
[2021-06-23 11:30] LABS: Magnesium 1.3 mg/dL (1.6-2.6)
[2021-06-23] MEDS: Insulin Lispro 100 UNIT/ML INSULN.PEN SC ×2 (11:32→20:38)
[2021-06-23] MEDS: Potassium Chloride Oral Tablet 20 MEQ 40 MEQ PO ×2 (11:33→16:56)
[2021-06-23 11:40] LABS: Bedside Glucose 182 mg/dL (70-110)
--- NOTE | 2021-06-23 12:42 | CASEMGMT ---
CARLEY REY in to discuss [employer] form with patient. CARLEY REY explained [employer] form, patient voiced understanding. Pt signed form and filed in chart. Pt provided with a copy of signed [employer]ZAN form. Patient had no further questions or concerns at this time. Patient was provided a list of [facility] providers including quality and resource use data and consistent with the patient?s preferred geographic region, medical needs, and insurance network. Patient states he does not want to look at this now at this time. CARLEY REY to check back.
--- NOTE | 2021-06-23 12:44 | CASEMGMT ---
Social Work Note Per algebraist questions, pt has completed HCPOA and LW and provided documents to [facility]. RN CM informed pt that documents are not on file and he may bring in documents to be scanned to chart. Hodan Brantley LAND APPRAISER, REWINDER OPERATOR
[2021-06-23 17:01] LABS: Bedside Glucose 137 mg/dL (70-110)
[2021-06-23] MEDS: Tamsulosin HCl 0.4 MG Capsule PO (20:37)
[2021-06-23] MEDS: Atorvastatin Calcium 40 MG Tablet PO (20:38)
[2021-06-23 20:46] LABS: Bedside Glucose 185 mg/dL (70-110)
[2021-06-24] VITALS (9 sets, daily range): BP systolic 120–148; BP diastolic 66–75; PULSE 71–94; RESP 14–16; TEMP 36–36.9; O2SAT 95–99
[2021-06-24] MEDS: Nystatin Powder 15gm Bottle 1 APPLIC TOPICAL ×2 (04:50→14:22)
[2021-06-24] MEDS: Acetaminophen 325 MG Tablet 650 MG PO (06:17)
[2021-06-24] MEDS: oxyCODONE 5 MG Tablet PO (06:17)
[2021-06-24 06:26] LABS: Bedside Glucose 127 mg/dL (70-110)
[2021-06-24 06:59] LABS: Anion Gap 7 (5-15); BUN 38 mg/dL (7-18); Chloride 103 mmol/L (98-107); Creatinine, Serum 1.46 mg/dL (0.70-1.30); EST Glomerular Filtration Rate 49 mL/min (>60); Est Glom Filt Rate - Afr Amer 59 mL/min (>60); Estimated Creatinine Clearance 30.97 ml/min; Glucose 125 mg/dL (74-106); Potassium 4.1 mmol/L (3.5-5.1); Sodium Level 140 mmol/L (136-145)
[2021-06-24] MEDS: Furosemide 40 MG/4 ML Vial IV (09:08)
[2021-06-24] MEDS: Clopidogrel Bisulfate 75 MG Tablet PO (09:08)
[2021-06-24] MEDS: Finasteride 5 MG Tablet PO (09:08)
[2021-06-24] MEDS: Pantoprazole Sodium 20 MG Tablet PO (09:08)
[2021-06-24] MEDS: Potassium Chloride Oral Tablet 20 MEQ 40 MEQ PO ×2 (09:08→16:28)
[2021-06-24] MEDS: Carvedilol 25 MG Tablet PO (09:08)
[2021-06-24] MEDS: Glucerna Shake 120 ML LIQUID PO ×3 (09:09→16:28)
[2021-06-24] MEDS: APIXABAN 2.5 MG TABLET PO (09:09)
[2021-06-24] MEDS: 0.9% Saline Lock 10 ML Syringe IV ×2 (09:14→14:18)
--- NOTE | 2021-06-24 09:50 | CASEMGMT ---
Social Work Note SW updated that pt is agreeable to SNF if recommended. SW reviewed PT/OT, pt still requiring assistance with ADLS and still with pain. SW in to speak with pt. SW introduced self and role at [facility]. Pt is alert and orientated, answers questions appropriately. SW spoke with pt about discharge plans and SNF. Pt agreeable to SNF. Patient was provided a list of SNF providers including quality and resource use data and consistent with the patient?s preferred geographic region, medical needs, and insurance network. Pt's preferred provider is [facility]. FELIX placed a call to Payton with TCU and provided referral. TCU to submit for pre-cert. SW informed Payton that pt is medically ready for discharge once pre-cert is obtained. Plan: TCU pending pre-cert Hodan Brantley MSW, CASINO GAMING WORKER
--- NOTE | 2021-06-24 11:20 | PCM.PN.HOSP ---
Documented by User: Candi Whitman PRINTER ASSISTANT, PRINTER ASSISTANT-C 06/24/21 11:23 Subjective Subjective Patient seen and examined. Reports improvement in lower extremity swelling. Denies shortness of breath. States he feels weak and is unable to get out of the chair without assistance. Amendable to SNF for rehab, referral placed to TCU. Objective Data Objective Data Vital Signs: Vital Signs Temp Pulse Resp BP Pulse Ox 98 F 81 14 126/71 H 95 06/24/21 07:43 06/24/21 10:12 06/24/21 07:43 06/24/21 07:43 06/24/21 08:03 Oxygen Delivery Method Room Air Weight: 182 lb 1.629 oz Body Mass Index (BMI) 31.3 Intake & Output: Intake and Output for Last 24 Hours 06/22/21 06/23/21 06/24/21 23:59 23:59 23:59 Intake Total 500 / 500 300 / 300 Output Total 500 / 500 1150 / 1150 300 / 300 Balance 0 / 0 -1150 / -850 0 / 0 Medical Nutrition Assessment Dietitian: Malnutrition Criteria Met Start: 06/23/21 12:36 Freq: Status: Active Protocol: Document 06/23/21 12:36 RMA (Rec: 06/23/21 12:36 RMA [id number]) Nutrition Malnutrition Evidence of Malnutrition Exists Yes Malnutrition (severe): Chronic Evidenced By Suboptimal Energy Intake ( Severe),Weight Loss (Severe) Clinical Problem Chronic Disease or Condition Related Malnutrition Etiology Severe protein/calorie malnutrition in the context of chronic illness, advanced age and debility related to inadequate oral intake Signs/Symptoms as evidenced by ~15-16% wt loss x past 1-2 months and PO meeting less than 50% estimated nutrition needs x past 1-2 months per pt report Status Active Problem Recommendation Dietitian Recommendations/Changes Will adjust diet to 2000 calorie/consistent carbohydrate; sodium- restricted diet with 1500ml fluid restriction/day. Will continue 120ml glucerna shake TID w/ medpass as tolerated. Additional ONS as needed once PO better established at meals . Lab / Micro Data Result Diagrams: 06/23/21 04:49 06/24/21 05:55 Labs: Laboratory Results - last 24 hr 06/22/21 14:33: Magnesium 1.3 L 06/23/21 11:30: POC Glucose 182 H 06/23/21 16:54: POC Glucose 137 H 06/23/21 20:35: POC Glucose 185 H 06/24/21 05:55: Sodium 140, Potassium 4.1, Chloride 103, Carbon Dioxide 30.0, Anion Gap 7, BUN 38 H, Creatinine 1.46 H, Estim Creat Clear Calc 30.97, Est GFR (MDRD) Af Amer 59 L, Est GFR (MDRD) Non-Af 49 L, BUN/Creatinine Ratio 26.0 H, Glucose 125 H, Calcium 7.0 L 06/24/21 06:21: POC Glucose 127 H Physical Exam Const alert, oriented x3 and no apparent distress Orientation / Consciousness: awake, oriented to person, oriented to place and oriented to time HEENT normocephalic and moist oral mucous membranes Eyes PERRL, EOMs intact bilaterally and conjunctivae normal Neck no lymphadenopathy Resp clear to auscultation bilaterally Auscultation: diminished lung sounds Cardio Cardio Narrative: Atrial fibrillation Heart Sounds: murmur Peripheral Pulses: pulses 2+ throughout GI normal to inspection, nondistended, normoactive bowel sounds, non-tender and non-distended Extremity normal to inspection General Extremity: edema bilateral lower extremity (Ronak wraps in place, improved) Details: moderate Skin no rashes or lesions noted Skin Narrative: Multiple scabbed areas on face and upper extremities, patient noted to be picking at areas. Lesions: no lesions Rashes: no rashes Trauma: no lacerations or abrasions Neuro CN's II-XII intact bilaterally, no focal motor deficits, no sensory deficits noted and deep tendon reflexes 2+ bilaterally Psych Mood & Affect: flat affect Assessment & Plan Assessment/Plan (1) CHF (congestive heart failure): PLAN: 1. Acute on chronic heart failure with preserved ejection fraction-BNP 562. Chest x-ray unremarkable. Patient with significant lower extremity edema. IV Lasix. Strict I&O. Daily weight. Echocardiogram August 2020 demonstrated an EF of 60%, moderate to severe mitral annular calcification, moderate aortic stenosis. Ronak wraps bilateral lower extremities. 2. Paroxysmal atrial fibrillation-rate controlled. On carvedilol, Eliquis. 3. CAD with history of coronary artery bypass/angioplasty/stenting-stable, continue Plavix, statin, carvedilol, lisinopril. 4. Hypertension-stable, continue amlodipine, carvedilol, lisinopril. 5. Hyperlipidemia-continue statin. 6. Chronic kidney disease stage IIIa-stable, trend BMP. 7. Obesity-encouraged diet and lifestyle modifications. 8. BPH-on Flomax. 9. Type 2 diabetes [id number] with sliding scale insulin. 10. Debility with recurrent falls-PT/OT. Case management consult. DVT prophylaxis-Joel This patient was seen by LUCITA Contreras under the supervision of Dr. Hamilton. Discharge planning: TCU pending acceptance. Time spent examining patient, reviewing data and subsequent management of care: 10 Minutes Documented by User: Dr. Hao Hamilton MD 06/24/21 12:11 Objective Data Lab / Micro Data Result Diagrams: 06/23/21 04:49 06/24/21 05:55 Charges/Coding Addendum Addendum: Dr. Hamilton: I personally reviewed the chart and examined the patient, and agree with the above findings. 86-year-old male with a history of diastolic heart failure presents with acute on chronic diastolic heart failure and lower extremity edema. He also developed a little bit of an YOLIS with his creatinine peaking around 1.7. Currently today he is down to 1.5, his baseline does appear to be around 1. We will continue with IV Lasix and continue wrapping his lower extremities. Continue with PT/OT evaluation. He does state that he feels a little bit better today than he did yesterday. Clinical care time spent in all aspects of patient care: 15 minutes 06/24/2021: Feels better today, he is agreeable to go to SNF if necessary based on PT and OT evaluations. Swelling is much less in his lower extremities and his kidney function is improving. His peak creatinine was 1.74 and he is now down to 1.46 with aggressive diuresis. Clinical time spent in all aspects of patient care: 18 minutes Visit Charges OBSV E&M: 44665 Subsequent observation care L2
[2021-06-24 11:21] LABS: Bedside Glucose 199 mg/dL (70-110)
[2021-06-24 11:31] LABS: Mucous, Urine 0 SEEN /hpf (<or=2+)
[2021-06-24 11:38] LABS: Color, Urine Yellow (Yellow); Glucose, Dipstick Normal (Normal); Ketone-Dipstick Negative (Negative); Leukocyte Esterase-Dipstick 500 /ul (Negative); Nitrite-Dipstick Positive (Negative); Occult Blood-Urine 25 /ul (Negative); Protein-Dipstick 30 mg/dl (Negative); Urine Bilirubin Dipstick Negative (Negative); Urine Clarity Sl. Cloudy (Clear); Urine Urobilinogen Normal (Normal)
[2021-06-24 11:44] LABS: Bacteria 2+ /hpf (None Seen); Red Blood Cells-Urine 0-5 SEEN /hpf (0-5); Squamous Epithelial Cells - UA 0-5 SEEN /hpf (0-5); White Blood Cells 25-50 SEEN /hpf (0-5)
[2021-06-24] MEDS: Ceftriaxone 1 GM/50 ML BAG IV (14:16)
--- NOTE | 2021-06-24 14:45 | CASEMGMT ---
Social Work Note FELIX received call from Payton with TCU stating pre-cert has been obtained, pt can discharge to TCU today. SW updated PA. SW in to speak with pt. SW updated pt that TCU can accept pt and pre-cert has been obtained. Pt to discharge to TCU. Pt states understanding. SW asked pt if he wanted this worker to call any family to update and pt states that this worker can call his DIL Jamee. Pt then dialed Jamee on his phone for this worker to talk to her. The phone call went to voicemail so this worker left message for Jamee that pt will discharge to TCU today. Pt denied additional needs or concerns at this time. Plan: TCU today Hodan Brantley TOOL AND DIE MAKER/DESIGNER, PAPER CORE MACHINE OPERATOR
--- NOTE | 2021-06-24 15:04 | TREXTCAR_ITS ---
Documented by User: Candi Whitman NP, INTERNET SOURCER-C 06/24/21 15:12 Diet 06/22/21 18:51 Diet: Consistent Carb - Calorie Controlled Food consistency:: Regular Liquid Consistency:: Regular/Thin Dietary Modifications:: Sodium Restricted Fluid restriction:: 1500 mL How many daily calories?: 2000 calorie Routine Orders/Code Status Enema Type: Fleetz Enema Frequency: Daily PRN Suppository Type: Dulcolax 10mg Suppository Frequency: Daily PRN Routine Lab Work: - (Weekly CBC, BMP) Code Status: DNRCC-A (No intubation) Wound(s) scalp: Wound Type: open area lt buttocks: Wound Type: Skin Tear rt buttocks: Wound Type: Skin Tear bilat legs: Wound Type: multiple scabs Suggestions for Active Care Change Position every (hours): 2 Times a day to sit in chair: 3 Therapies Physical Therapy: Eval and Treat Occupational Therapy: Eval and Treat Problem/Diagnosis (1) CHF (congestive heart failure): Status: Acute Allergies/Procedures Done in Hospital Allergies contrast dye Adverse Reaction (Severe, Uncoded 06/22/21 18:58) broke out Procedures: None Type of Care/Length of Stay Estimated LOS: Convalescent Care Less Than 30 days Type of Care Needed: Skilled Rehab Potential: Fair Prognosis: Fair Additional Orders/Day of Discharge H&P will serve as current which was dated: 06/22/21 Day of Discharge: 06/24/21 Dietary and Speech Recommendations Dietitian Recommendations/Changes: Will adjust diet to 2000 calorie/consistent carbohydrate; sodium-restricted diet with 1500ml fluid restriction/day. Will continue 120ml glucerna shake TID w/ medpass as tolerated. Additional ONS as needed once PO better established at meals. Discharge Plan Admission Admit Date/Time: 06/22/21 15:53 Primary Reason for Your Visit: Acute on chronic heart failure with preserved ejection fraction, UTI Attending Provider: Hao Hamilton Primary Care Provider: Tommy Kaur Discharge Orders/Prescriptions Prescriptions: New cephalexin 500 mg Capsule 500 mg PO Q8 5 Days Qty: 15 RF: 0 Continued clopidogrel 75 mg tablet 75 mg PO QDAY RF: 0 omeprazole 20 mg capsule,delayed release(DR/EC) 20 mg PO QDAY RF: 0 dutasteride 0.5 mg capsule 0.5 mg PO DAILY RF: 0 potassium chloride 20 MEQ tablet 20 meq PO BID RF: 0 tamsulosin 0.4 MG capsule,extended release 24hr 0.4 mg PO QHS RF: 0 carvedilol 25 MG tablet 25 mg PO BID Qty: 60 RF: 6 simvastatin 40 MG tablet 40 mg PO QHS RF: 0 nitroglycerin 0.4 MG tablet 0.4 mg SUBLINGUAL Q5M PRN (Reason: Chest Pain) RF: 0 Eliquis 2.5 mg Tablet 2.5 mg PO BID Qty: 60 RF: 0 bumetanide 0.5 mg Tablet 1 mg PO BID Qty: 60 RF: 0 lisinopril 20 MG tablet 20 mg PO DAILY Qty: 0 RF: 0 hydrocodone-acetaminophen 5-325 mg tablet 1 tab PO Q6H PRN (Reason: pain) 3 Days Qty: 12 RF: 0 Referrals / Follow Up: Tommy Kaur MD [Primary Care Provider] - In 1 Week Monik Sexton PA [PHYSICIAN CHANGE PERSON] - Within 2 Weeks Disposition Disposition (needs filled in before D/C Order can be placed): Senior Living Facility Documented by User: Dr. Hao Hamilton MD 06/24/21 16:27 Allergies/Procedures Done in Hospital Allergies contrast dye Adverse Reaction (Severe, Uncoded 06/22/21 18:58) broke out Discharge Plan Admission Admit Date/Time: 06/22/21 15:53 Primary Reason for Your Visit: Acute on chronic heart failure with preserved ejection fraction, UTI Attending Provider: Hao Hamilton Primary Care Provider: Tommy Kaur Discharge Orders/Prescriptions Prescriptions: New cephalexin 500 mg Capsule 500 mg PO Q8 5 Days Qty: 15 RF: 0 Continued clopidogrel 75 mg tablet 75 mg PO QDAY RF: 0 omeprazole 20 mg capsule,delayed release(DR/EC) 20 mg PO QDAY RF: 0 dutasteride 0.5 mg capsule 0.5 mg PO DAILY RF: 0 potassium chloride 20 MEQ tablet 20 meq PO BID RF: 0 tamsulosin 0.4 MG capsule,extended release 24hr 0.4 mg PO QHS RF: 0 carvedilol 25 MG tablet 25 mg PO BID Qty: 60 RF: 6 simvastatin 40 MG tablet 40 mg PO QHS RF: 0 nitroglycerin 0.4 MG tablet 0.4 mg SUBLINGUAL Q5M PRN (Reason: Chest Pain) RF: 0 Eliquis 2.5 mg Tablet 2.5 mg PO BID Qty: 60 RF: 0 bumetanide 0.5 mg Tablet 1 mg PO BID Qty: 60 RF: 0 lisinopril 20 MG tablet 20 mg PO DAILY Qty: 0 RF: 0 hydrocodone-acetaminophen 5-325 mg tablet 1 tab PO Q6H PRN (Reason: pain) 3 Days Qty: 12 RF: 0 Referrals / Follow Up: Tommy Kaur MD [Primary Care Provider] - In 1 Week Monik Sexton PA [PHYSICIAN CHANGE PERSON] - Within 2 Weeks Disposition Disposition (needs filled in before D/C Order can be placed): Senior Living Facility
--- NOTE | 2021-06-24 15:12 | PCM.DC.SUM ---
Documented by User: Candi Whitman NP, MANAGER MARKET INTELLIGENCE-C 06/24/21 15:17 Providers Date of Admission: 06/22/21 Date of Discharge: 06/24/21 Primary Care Physician: Dr. Tommy Kaur MD Reason For Visit: LEG SWELLING Diagnosis Discharge Diagnosis (1) CHF (congestive heart failure): Status: Acute Code(s): I50.9 - Heart failure, unspecified Medications at Discharge Home Medications potassium chloride 20 meq PO BID 09/11/14 tamsulosin 0.4 mg PO QHS 09/11/14 carvedilol 25 mg PO BID #60 tab 09/13/14 nitroglycerin 0.4 mg SUBLINGUAL Q5M PRN 10/14/14 simvastatin 40 mg PO QHS 10/14/14 clopidogrel 75 mg tablet 75 mg PO QDAY tab 08/01/17 omeprazole 20 mg capsule,delayed release 20 mg PO QDAY 08/01/17 dutasteride 0.5 mg capsule 0.5 mg PO DAILY cap 05/04/19 Eliquis 2.5 mg PO BID #60 tab 09/04/20 bumetanide 1 mg PO BID #60 tab 09/04/20 lisinopril 20 mg PO DAILY #0 tab 09/04/20 hydrocodone-acetaminophen 1 tab PO Q6H PRN 3 Days #12 tab 05/15/21 cephalexin 500 mg PO Q8 5 Days #15 cap 06/24/21 Hospital Course Operations None Summary of Care Provided Hospital Course: Patient is an 86-year-old male admitted 06/22/2021 due to lower extremity swelling. 1. Acute on chronic heart failure with preserved ejection fraction-BNP 562. Chest x-ray unremarkable. Patient with significant lower extremity edema. IV Lasix during admission, continue home diuretic regimen at discharge. Strict I&O. Daily weight. Echocardiogram August 2020 demonstrated an EF of 60%, moderate to severe mitral annular calcification, moderate aortic stenosis. Ronak wraps bilateral lower extremities. TCU at discharge for rehab. Follow-up with PCP and cardiology in 1 week. 2. Acute UTI-IV Rocephin x1 dose. Continue oral Keflex at discharge. Urine culture pending and can be followed at TCU. 3. CAD with history of coronary artery bypass/angioplasty/stenting-stable, continue Plavix, statin, carvedilol, lisinopril. 4. Hypertension-stable, continue amlodipine, carvedilol, lisinopril. 5. Hyperlipidemia-continue statin. 6. Chronic kidney disease stage IIIa-stable, trend BMP. 7. Obesity-encouraged diet and lifestyle modifications. 8. BPH-on Flomax. 9. Type 2 diabetes mellitus-diet controlled. 10. Debility with recurrent falls-PT/OT. Case management consult. 11. Severe protein calorie malnutrition-as evidenced by weight loss in the context of chronic illness. Continue dietary recommendations per dietitian. 12. Paroxysmal atrial fibrillation-rate controlled. On carvedilol, Eliquis. Physical Exam Const alert, oriented x3 and no apparent distress Orientation / Consciousness: awake, oriented to person, oriented to place and oriented to time HEENT normocephalic and moist oral mucous membranes Eyes PERRL, EOMs intact bilaterally and conjunctivae normal Neck no lymphadenopathy Resp clear to auscultation bilaterally Auscultation: diminished lung sounds Cardio Cardio Narrative: Atrial fibrillation Heart Sounds: murmur Peripheral Pulses: pulses 2+ throughout GI normal to inspection, nondistended, normoactive bowel sounds, non-tender and non-distended Extremity normal to inspection General Extremity: edema bilateral lower extremity (Ronak wraps in place, improved) Details: moderate Skin no rashes or lesions noted Skin Narrative: Multiple scabbed areas on face and upper extremities, patient noted to be picking at areas. Lesions: no lesions Rashes: no rashes Trauma: no lacerations or abrasions Neuro CN's II-XII intact bilaterally, no focal motor deficits, no sensory deficits noted and deep tendon reflexes 2+ bilaterally Psych Mood & Affect: flat affect Patient seen and examined prior to discharge. Physical assessment as noted above. Patient is stable for discharge with follow up recommendations as noted above. This patient was seen by LUCITA Contreras under the supervision of Dr. Hamilton. Time spent examining patient, reviewing data and subsequent management of care: 16 Minutes Medical Records Data Medical Nutrition Assessment Dietitian: Malnutrition Criteria Met Start: 06/23/21 12:36 Freq: Status: Active Protocol: Document 06/23/21 12:36 RMA (Rec: 06/23/21 12:36 RMA [id number]) Nutrition Malnutrition Evidence of Malnutrition Exists Yes Malnutrition (severe): Chronic Evidenced By Suboptimal Energy Intake ( Severe),Weight Loss (Severe) Clinical Problem Chronic Disease or Condition Related Malnutrition Etiology Severe protein/calorie malnutrition in the context of chronic illness, advanced age and debility related to inadequate oral intake Signs/Symptoms as evidenced by ~15-16% wt loss x past 1-2 months and PO meeting less than 50% estimated nutrition needs x past 1-2 months per pt report Status Active Problem Recommendation Dietitian Recommendations/Changes Will adjust diet to 2000 calorie/consistent carbohydrate; sodium- restricted diet with 1500ml fluid restriction/day. Will continue 120ml glucerna shake TID w/ medpass as tolerated. Additional ONS as needed once PO better established at meals . Weight / BMI Weight Weight: 182 lb 1.629 oz Body Mass Index (BMI) 31.3 ABG / Lab / Microbiology Data Result Diagrams: 06/23/21 04:49 06/24/21 05:55 Laboratory: Laboratory Results - last 24 hr 06/23/21 16:54: POC Glucose 137 H 06/23/21 20:35: POC Glucose 185 H 06/24/21 05:55: Sodium 140, Potassium 4.1, Chloride 103, Carbon Dioxide 30.0, Anion Gap 7, BUN 38 H, Creatinine 1.46 H, Estim Creat Clear Calc 30.97, Est GFR (MDRD) Af Amer 59 L, Est GFR (MDRD) Non-Af 49 L, BUN/Creatinine Ratio 26.0 H, Glucose 125 H, Calcium 7.0 L 06/24/21 06:21: POC Glucose 127 H 06/24/21 11:08: POC Glucose 199 H 06/24/21 11:25: Urine Color Yellow, Urine Clarity Sl. Cloudy, Urine pH 8.0, Ur Specific [place] 1.010, Urine Protein 30 H, Urine Glucose (UA) Normal, Urine Ketones Negative, Urine Occult Blood 25 H, Urine Nitrite Positive H, Urine Bilirubin Negative, Urine Urobilinogen Normal, Ur Leukocyte Esterase 500 H, Urine RBC 0-5 SEEN, Urine WBC 25-50 SEEN, Ur Squamous Epith Cells 0-5 SEEN, Urine Bacteria 2+, Urine Mucus 0 SEEN Meaningful Use Info Meaningful Use Diagnoses (Choose all that apply): CHF CHF RONAK/ARB ordered at discharge?: Yes Documented LVEF (%): 60 Discharge Plan Admission Admit Date/Time: 06/22/21 15:53 Primary Reason for Your Visit: Acute on chronic heart failure with preserved ejection fraction, UTI Attending Provider: Hao Hamilton Primary Care Provider: Tommy Kaur Discharge Orders/Prescriptions Prescriptions: New cephalexin 500 mg Capsule 500 mg PO Q8 5 Days Qty: 15 RF: 0 Continued clopidogrel 75 mg tablet 75 mg PO QDAY RF: 0 omeprazole 20 mg capsule,delayed release(DR/EC) 20 mg PO QDAY RF: 0 dutasteride 0.5 mg capsule 0.5 mg PO DAILY RF: 0 potassium chloride 20 MEQ tablet 20 meq PO BID RF: 0 tamsulosin 0.4 MG capsule,extended release 24hr 0.4 mg PO QHS RF: 0 carvedilol 25 MG tablet 25 mg PO BID Qty: 60 RF: 6 simvastatin 40 MG tablet 40 mg PO QHS RF: 0 nitroglycerin 0.4 MG tablet 0.4 mg SUBLINGUAL Q5M PRN (Reason: Chest Pain) RF: 0 Eliquis 2.5 mg Tablet 2.5 mg PO BID Qty: 60 RF: 0 bumetanide 0.5 mg Tablet 1 mg PO BID Qty: 60 RF: 0 lisinopril 20 MG tablet 20 mg PO DAILY Qty: 0 RF: 0 hydrocodone-acetaminophen 5-325 mg tablet 1 tab PO Q6H PRN (Reason: pain) 3 Days Qty: 12 RF: 0 Referrals / Follow Up: Tommy Kaur MD [Primary Care Provider] - In 1 Week Monik Sexton PA [PHYSICIAN DIRECTOR OF ACQUISITION MARKETING] - Within 2 Weeks Disposition Disposition (needs filled in before D/C Order can be placed): [facility] Facility Documented by User: Dr. Hao Hamilton MD 06/24/21 16:30 Providers Date of Admission: 06/22/21 Reason For Visit: LEG SWELLING Medications at Discharge Home Medications potassium chloride 20 meq PO BID 09/11/14 tamsulosin 0.4 mg PO QHS 09/11/14 carvedilol 25 mg PO BID #60 tab 09/13/14 nitroglycerin 0.4 mg SUBLINGUAL Q5M PRN 10/14/14 simvastatin 40 mg PO QHS 10/14/14 clopidogrel 75 mg tablet 75 mg PO QDAY tab 08/01/17 omeprazole 20 mg capsule,delayed release 20 mg PO QDAY 08/01/17 dutasteride 0.5 mg capsule 0.5 mg PO DAILY cap 05/04/19 Eliquis 2.5 mg PO BID #60 tab 09/04/20 bumetanide 1 mg PO BID #60 tab 09/04/20 lisinopril 20 mg PO DAILY #0 tab 09/04/20 hydrocodone-acetaminophen 1 tab PO Q6H PRN 3 Days #12 tab 05/15/21 cephalexin 500 mg PO Q8 5 Days #15 cap 06/24/21 ABG / Lab / Microbiology Data Result Diagrams: 06/23/21 04:49 06/24/21 05:55 Discharge Plan Admission Admit Date/Time: 06/22/21 15:53 Primary Reason for Your Visit: Acute on chronic heart failure with preserved ejection fraction, UTI Attending Provider: Hao Hamilton Primary Care Provider: Tommy Kaur Discharge Orders/Prescriptions Prescriptions: New cephalexin 500 mg Capsule 500 mg PO Q8 5 Days Qty: 15 RF: 0 Continued clopidogrel 75 mg tablet 75 mg PO QDAY RF: 0 omeprazole 20 mg capsule,delayed release(DR/EC) 20 mg PO QDAY RF: 0 dutasteride 0.5 mg capsule 0.5 mg PO DAILY RF: 0 potassium chloride 20 MEQ tablet 20 meq PO BID RF: 0 tamsulosin 0.4 MG capsule,extended release 24hr 0.4 mg PO QHS RF: 0 carvedilol 25 MG tablet 25 mg PO BID Qty: 60 RF: 6 simvastatin 40 MG tablet 40 mg PO QHS RF: 0 nitroglycerin 0.4 MG tablet 0.4 mg SUBLINGUAL Q5M PRN (Reason: Chest Pain) RF: 0 Eliquis 2.5 mg Tablet 2.5 mg PO BID Qty: 60 RF: 0 bumetanide 0.5 mg Tablet 1 mg PO BID Qty: 60 RF: 0 lisinopril 20 MG tablet 20 mg PO DAILY Qty: 0 RF: 0 hydrocodone-acetaminophen 5-325 mg tablet 1 tab PO Q6H PRN (Reason: pain) 3 Days Qty: 12 RF: 0 Referrals / Follow Up: Tommy Kaur MD [Primary Care Provider] - In 1 Week Monik Sexton PA [PHYSICIAN DIRECTOR OF ACQUISITION MARKETING] - Within 2 Weeks Disposition Disposition (needs filled in before D/C Order can be placed): [facility] Facility Charges/Coding Addendum Addendum: Dr. Hamilton: I personally reviewed the chart and examined the patient, and agree with the above findings. 86-year-old male with a history of diastolic heart failure presents with acute on chronic diastolic heart failure and lower extremity edema. He also developed a little bit of an YOLIS with his creatinine peaking around 1.7. Currently today he is down to 1.5, his baseline does appear to be around 1. We will continue with IV Lasix and continue wrapping his lower extremities. Continue with PT/OT evaluation. He does state that he feels a little bit better today than he did yesterday. Clinical care time spent in all aspects of patient care: 15 minutes 06/24/2021: Feels better today, he is agreeable to go to SNF if necessary based on PT and OT evaluations. Swelling is much less in his lower extremities and his kidney function is improving. His peak creatinine was 1.74 and he is now down to 1.46 with aggressive diuresis. There is some concern for possible UTI secondary to how the urine looked according to nursing so UA was obtained which demonstrated leukocyte esterase of 500 with 2+ urine bacteria and positive nitrites. He is fairly asymptomatic however based on these UA results, we will give him a dose of Rocephin today and then can discharge him to SNF on Keflex. They should be able to follow-up on his cultures there. Discussed with him the plan for discharge today to a custodial facility, and he expressed understanding of the risk benefits of going and is okay with going to TCU today. Clinical time spent in all aspects of patient care: 25 minutes minutes Visit Charges OBSV E&M: [id number] Observation care discharge
--- NOTE | 2021-06-24 16:30 | CASEMGMT ---
Social Work Note SW updated insulation inspector that once pt's COVID test comes back, pt is able to discharge to TCU today. Plan: TCU today Hodan Brantley COMPUTER AIDE, PATIENT EDUCATOR
[2021-06-24 16:36] LABS: Bedside Glucose 114 mg/dL (70-110)
--- NOTE | 2021-06-24 18:29 | NURSING ---
Report called to MANDY Mace.
== END 2021-06-24 18:40 | disposition skilled nursing facility (03) ==
LOC: ED 16:44 → MS3 16:53
PROVIDERS: Nurse Practitioner Family; Admitting Provider Internal Medicine; Emergency Provider Emergency Medicine; PCP Family Medicine; Visit Provider Family Medicine
DX: I13.0 Hypertensive heart and chronic kidney disease with heart failure and stage 1 through stage 4 chronic kidney disease, or unspecified chronic kidney disease (principal); E43 Unspecified severe protein-calorie malnutrition; N17.9 Acute kidney failure, unspecified; I50.33 Acute on chronic diastolic (congestive) heart failure; E11.22 Type 2 diabetes mellitus with diabetic chronic kidney disease; I48.0 Paroxysmal atrial fibrillation; N18.31 Chronic kidney disease, stage 3a; E78.5 Hyperlipidemia, unspecified; E87.6 Hypokalemia; I25.10 Atherosclerotic heart disease of native coronary artery without angina pectoris; N39.0 Urinary tract infection, site not specified; R29.6 Repeated falls; K21.9 Gastro-esophageal reflux disease without esophagitis; E66.9 Obesity, unspecified; Z68.31 Body mass index [BMI] 31.0-31.9, adult; Z79.899 Other long term (current) drug therapy; Z79.02 Long term (current) use of antithrombotics/antiplatelets; Z87.891 Personal history of nicotine dependence; Z79.01 Long term (current) use of anticoagulants; N40.0 Benign prostatic hyperplasia without lower urinary tract symptoms
CPT/HCPCS: 36415; 71045; 80048; 80061; 81001; 82962; 83735; 83880; 84100; 84132; 84443; 85025; 87077; 87086; 87088; 87186; 87426; 93005; 96365; 96375; 96376; 97110; 97162; 97166; 97530; 97535; 97802; 99218; 99251; 99284; A4216; G0378; G0463; J1940

== ENCOUNTER 2021-06-24 18:50 | Inpatient (IN) | payer MEDICARE, SELFPAY ==
--- NOTE | 2021-06-24 20:25 | HP.PCM_ITS ---
HPI - General General Date of Admission: 06/24/21 HPI Narrative 06/22/2021 BLANCA RODRIGUEZ, is a 86 Male who presents to [facility] Emergency Department with edema. 06/22/2021 EKG atrial fibrillation, left axis deviation, anterior infarct, age undetermined, ST&T wave abnormality, consider lateral ischemia, abnormal EKG. Leg edema, weeping legs, fall. Increased leg swelling x 1 month, unable to lie down to sleep. Water leaking from legs x 2 days. Fell in bathroom, hit back on bathtub, no head injury. WBC 11.8, K 2.7, replaced. BNP 562, Chest X-ray negative, wrap legs with CLARI wraps. 06/22/2021 Admit to Hospital. IV lasix, fluid restriction for acute on chronic diastolic congestive heart failure. Monitor acute kidney injury. 06/23/2021 Leg swelling improved, feels weak. IV lasix, recent echo EF 60%. 06/24/2021 Leg swelling improved, no shortness of breath, unable to get out of chair due to weakness. Creatinine improved from 1.74 to 1.46. PT/OT for senior care facility. UA consistent with urinary tract infection, urine culture sent, Rocephin 1gm given, discharge on keflex. 06/24/2021 Admit to TCU with debility, here for rehabilitation, strengthening, prior to discharge home alone. [facility] Medical History Atherosclerotic heart disease of ruby coronary artery without angina pectoris Atrial fibrillation Benign essential hypertension Bilateral carotid bruits Carotid artery stenosis Congestive heart failure (CHF) Diabetes DM type 2 (diabetes mellitus, type 2) Former smoker GERD (gastroesophageal reflux disease) History of non-ST elevation myocardial infarction (NSTEMI) (06/14/06) Hyperlipidemia Left atrial enlargement Nicotine abuse Nonrheumatic aortic (valve) stenosis Obesity Rectal bleeding SBO (small bowel obstruction) Home Medications potassium chloride 20 meq PO BID 09/11/14 [History Last Taken 06/21/21] tamsulosin 0.4 mg PO QHS 09/11/14 [History Last Taken 06/23/21] nitroglycerin 0.4 mg SUBLINGUAL Q5M PRN 10/14/14 [History Last Taken 09/02/20] simvastatin 40 mg PO QHS 10/14/14 [History Last Taken 06/21/21] clopidogrel 75 mg tablet 75 mg PO QDAY tab 08/01/17 [History Last Taken 06/24/21] omeprazole 20 mg capsule,delayed release 20 mg PO QDAY 08/01/17 [History Last Taken 06/24/21] dutasteride 0.5 mg capsule 0.5 mg PO DAILY cap 05/04/19 [History Last Taken 06/24/21] hydrocodone-acetaminophen 1 tab PO Q6H PRN 3 Days #12 tab 05/15/21 [Rx Last Taken 06/21/21] Eliquis 2.5 mg PO BID 06/24/21 [History Last Taken 06/24/21] bumetanide 1 mg PO BID 06/24/21 [History Last Taken 06/21/21] carvedilol 25 mg PO BID 06/24/21 [History Last Taken 06/24/21] cephalexin 500 mg PO Q8 06/24/21 [History Last Taken Unknown] lisinopril 20 mg PO DAILY 06/24/21 [History Last Taken 06/21/21] Allergy/AdvReac Type Severity Reaction Status Date / Time contrast dye AdvReac Severe broke out Uncoded 06/22/21 18:58 Family History Mother CVA (cerebral vascular accident) Father CVA (cerebral vascular accident) Sister Hypertension Surgical History H/O coronary artery bypass surgery (12/01/01) History of appendectomy History of cholecystectomy History of coronary artery stent placement (12/17/08) History of right-sided carotid endarterectomy (10/2014) Social History (Updated 06/24/21 @ 20:[address] Dedrick Pat MD) household members: none Smoking Status: Former smoker alcohol intake: never substance use type: does not use diet: low salt caffeine: Yes Type: coffee Number of servings: 4 what type of physical activity do you participate in: none seatbelt use: always do you feel safe at home: Yes ROS Constitutional Constitutional: Denies chills, fever(s) or weight gain ENT HEENT: Denies headache(s), nasal congestion or nasal discharge Cardiovascular Cardiovascular: Denies chest pain or palpitations Respiratory/Chest Respiratory/Chest: Denies cough, excessive phlegm production or shortness of breath with exertion Gastrointestinal Gastrointestinal: Denies abdominal pain, nausea or vomiting Genitourinary Genitourinary: Denies dysuria Musculoskeletal Musculoskeletal: Denies joint pain or joint swelling Integumentary Integumentary: Denies rash or wounds Neurologic Neurologic: Denies focal weakness, numbness or tingling Psychiatric Psychiatric: Denies anxiety, auditory hallucinations, depression, homicidal ideation or suicidal ideation Physical Exam Const alert and oriented x3 General Appearance: cooperative HEENT normocephalic Eyes PERRL and EOMs intact bilaterally Neck supple, no JVD and no carotid bruits Resp normal respiratory effort, normal air movement and clear to auscultation bilaterally Cardio regular rate and regular rhythm GI normal to inspection, nondistended, normoactive bowel sounds, non-tender and non-distended Extremity normal capillary refill Extremity Narrative: CLARI wraps bilateral lower extremities. General Extremity: edema Skin no rashes or lesions noted General Skin Exam: no breakdown Psych affect normal Appearance: appropriate Results Lab / Micro Data Result Diagrams: 06/25/21 05:19 06/25/21 05:19 Assessment & Plan Assessment/Plan (1) Debility: (2) Edema: (3) Fall: (4) Hypokalemia: (5) Acute kidney injury: (6) Acute on chronic diastolic congestive heart failure: (7) Benign prostatic hyperplasia: (8) Coronary artery disease: (9) Atrial fibrillation: (10) Hyperlipidemia: (11) Gastroesophageal reflux disease: (12) Hypertension: PLAN: 86 year old male with below past medical history hospitalized for edema secondary to acute on chronic diastolic congestive heart failure, complicated by acute kidney injury, urinary tract infection, admitted to TCU with debility, here for rehabilitation, strengthening, prior to discharge home alone. * Debility - PT/OT. * Pain - Tylenol 1000mg q6h prn pain (1-10). * Bowel - Miralax 17gm daily, senna/colace 1 tablet bid, Dulcolax 10mg daily prn. * Adult immunization - Administer prevnar 20, fluzone, covid19 vaccine as appropriate. * DVT prophylaxis - Not necessary, on eliquis. * UTI - Keflex 500mg q8h x 5 days, monitor urine culture results. * Coronary artery disease - Coreg 25mg bid, Lisinopril 20mg daily, Plavix 75mg daily, Eliquis 2.5mg bid, ntg 0.4mg q5m prn. * GERD - Pantoprazole 20mg daily. * BPH - Finasteride 5mg daily, Tamsulosin 0.4mg daily. * Hypokalemia - KCL 20meq bid. * Hyperlipidemia - Atorvastatin 20mg qhs. * Atrial fibrillation - Coreg 25mg bid, Eliquis 2.5mg bid. * Chronic diastolic congestive heart failure - Coreg 25mg bid, Lisinopril 20mg daily, Bumex 1mg bid. * Lymphedema - CLARI wraps to bilateral lower extremities.
[2021-06-24 21:06] VITALS: BMI 31.7
[2021-06-24] MEDS: Cephalexin 500 MG Capsule PO (21:18)
[2021-06-24] MEDS: Tamsulosin HCl 0.4 MG Capsule PO (21:18)
[2021-06-24] MEDS: Atorvastatin Calcium 20 MG Tablet PO (21:19)
[2021-06-24 21:30] VITALS: BP 140/60; PULSE 65; RESP 18; TEMP 36.6; O2SAT 96
[2021-06-25 05:48] VITALS: BP 116/55; PULSE 71; RESP 16; TEMP 36.6; O2SAT 96
[2021-06-25] MEDS: Finasteride 5 MG Tablet PO (05:49)
[2021-06-25] MEDS: APIXABAN 2.5 MG TABLET PO ×2 (05:49→17:26)
[2021-06-25] MEDS: Bumetanide 0.5 MG Tablet 1 MG PO ×2 (05:50→17:25)
[2021-06-25] MEDS: Pantoprazole Sodium 20 MG Tablet PO (05:50)
[2021-06-25] MEDS: Clopidogrel Bisulfate 75 MG Tablet PO (05:50)
[2021-06-25] MEDS: Senna/Docusate Sodium 1 Tablet PO ×2 (05:50→17:26)
[2021-06-25] MEDS: Cephalexin 500 MG Capsule PO ×3 (05:50→21:46)
[2021-06-25 05:51] LABS: Absolute Lymphocyte Count 1.88 X10^3/uL (0.83-4.51); Basophil# 0.01 X10^3/uL; Basophil% 0.1 % (0-1); Eosinophil# 0.06 X10^3/uL; Eosinophils% 0.5 % (0-5); Hematocrit 34.2 % (40-54); Lymphocyte # 1.88 X10^3/ul (0.83-4.51); Lymphocyte % 15.8 % (19-41); Mean Corp Hgb Conc 32.2 g/dL (32-36); Mean Corpuscular Hgb 27.9 pg (27.0-32.0); Mean Corpuscular Volume 86.8 fL (80-94); Mean Platelet Vol. 10.6 fl (6.2-12.0); Monocyte# 0.75 X10^3/uL; Monocyte% 6.3 % (0-10); NRBC Flagged by Analyzer 0 % (0-5); Neutrophil # 9.01 X10^3/uL (2.7-7.7); Neutrophil % 75.9 % (47-70); Platelet Count 282 K/mm3 (150-450); RBC Distribution Width CV 14.2 % (11.6-14.6); RBC Distribution Width SD 44.8 fl (35.1-43.9); Red Blood Count 3.94 M/mm3 (4.6-6.2); White Blood Count 11.9 K/mm3 (4.4-11.0)
[2021-06-25] MEDS: Lisinopril 20 MG Tablet PO (05:51)
[2021-06-25] MEDS: Menthol/Lanolin/Calamine/Znox 113 GM Tube 1 APPLIC TOPICAL ×2 (05:59→21:48)
[2021-06-25 06:11] LABS: Anion Gap 6 (5-15); BUN 35 mg/dL (7-18); Calcium,Total 7.3 mg/dL (8.5-10.1); Chloride 104 mmol/L (98-107); EST Glomerular Filtration Rate 51 mL/min (>60); Est Glom Filt Rate - Afr Amer 62 mL/min (>60); Glucose 133 mg/dL (74-106); Potassium 4.2 mmol/L (3.5-5.1); Sodium Level 139 mmol/L (136-145)
[2021-06-25 06:30] LABS: Bedside Glucose 147 mg/dL (70-110)
[2021-06-25] MEDS: Potassium Chloride Oral Tablet 20 MEQ PO ×2 (09:19→17:25)
[2021-06-25] MEDS: Carvedilol 25 MG Tablet PO ×2 (09:19→17:25)
[2021-06-25 09:21] VITALS: BP 118/45; PULSE 80
[2021-06-25] MEDS: Acetaminophen 500 MG Tablet 1000 MG PO ×2 (09:28→17:24)
[2021-06-25] MEDS: Tuberculin,Purif.prot.deriv. 50 TU/ML Vial 0.1 ML ID (12:22)
[2021-06-25 14:00] VITALS: BP 115/52; PULSE 66; RESP 14; TEMP 36.6; O2SAT 100
--- NOTE | 2021-06-25 15:25 | CASEMGMT ---
Social Work Met with patient for initial assessment. Discussed code status and MOLST form. Pt wishes to be DNR-CCA, no intubation. Nursing notified. MOLST communicated to , placed in chart. Pt unsure whom is POA is, possibly son Joce. Pt wishes to have his DIL, Jamee, be primary contact and remain involved in updates/ DC plans. Explained [employer] insurance with NRD 06/29 and continued stay is not guaranteed with each review. The goal is for pt to return home alone. SW to continue to follow for DC planning. Requesting Palliative referral. Order entered and referral made to [facility]. Vesta Carter, PIPE COREMAKER LOT ATTENDANT
--- NOTE | 2021-06-25 16:01 | PCM.PN.RX ---
Progress Note - Pharmacy Subjective: TCU ADMISSION Objective: Allergies contrast dye Adverse Reaction (Severe, Uncoded 06/22/21 18:58) broke out Current Medications Generic Name Dose Route Start Last Admin Trade Name María PRN Reason Stop Dose Admin Acetaminophen 1,000 mg 06/24/21 20:44 06/25/21 09:28 Acetaminophen 500 Mg Tablet PO 1,000 mg Q6H PRN PRN Administration Pain Score 1-10 Apixaban 2.5 mg 06/25/21 06:00 06/25/21 05:49 Apixaban 2.5 Mg Tablet PO 2.5 mg BID LISA Administration Atorvastatin Calcium 20 mg 06/24/21 22:00 06/24/21 21:19 Atorvastatin Calcium 20 Mg Tablet PO 20 mg QHS LISA Administration Bisacodyl 10 mg 06/24/21 20:44 Bisacodyl 5 Mg Tablet PO DAILY PRN Constipation Bumetanide 1 mg 06/25/21 06:00 06/25/21 05:50 Bumetanide 0.5 Mg Tablet PO 1 mg BID LISA Administration Calamine/Phenol 1 applic 06/25/21 06:00 06/25/21 05:59 Menthol/Lanolin/Calamine/Znox 113 Gm Tube TOPICAL 1 applic BID LISA Administration Protocol Carvedilol 25 mg 06/25/21 08:00 06/25/21 09:19 Carvedilol 25 Mg Tablet PO 25 mg BIDCM LISA Administration Cephalexin 500 mg 06/24/21 22:00 06/25/21 13:31 Cephalexin 500 Mg Capsule PO 06/29/21 22:01 500 mg Q8 LISA Administration Clopidogrel Bisulfate 75 mg 06/25/21 06:00 06/25/21 05:50 Clopidogrel Bisulfate 75 Mg Tablet PO 75 mg DAILY LISA Administration Finasteride 5 mg 06/25/21 06:00 06/25/21 05:49 Finasteride 5 Mg Tablet PO 5 mg DAILY LISA Administration Lisinopril 20 mg 06/25/21 06:00 06/25/21 05:51 Lisinopril 20 Mg Tablet PO 20 mg DAILY LISA Administration Nitroglycerin 0.4 mg 06/24/21 20:13 Nitroglycerin (Inpatient Use) 0.4 Mg Tab.Subl SL Q5M PRN CARDIAC/CHEST PAIN Nystatin 1 applic 06/25/21 18:00 Nystatin Powder 15gm Bottle TOPICAL BID LISA Protocol Pantoprazole Sodium 20 mg 06/25/21 06:00 06/25/21 05:50 Pantoprazole Sodium 20 Mg Tablet PO 20 mg DAILY LISA Administration Polyethylene Glycol 17 gm 06/25/21 06:00 06/25/21 05:52 Polyethylene Glycol 3350 17 Gm Packet PO Not Given DAILY LISA Potassium Chloride 20 meq 06/25/21 08:00 06/25/21 09:19 Potassium Chloride Oral Tablet 20 Meq PO 20 meq BIDCM LISA Administration Senna/Docusate Sodium 1 tablet 06/25/21 06:00 06/25/21 05:50 Senna/Docusate Sodium 1 Tablet PO 1 tablet BID LISA Administration Sodium Chloride 10 - 40 ml 06/24/21 23:28 0.9% Saline Lock 10 Ml Syringe IV UD PRN SALINE FLUSH Tamsulosin HCl 0.4 mg 06/24/21 22:00 06/24/21 21:18 Tamsulosin Hcl 0.4 Mg Capsule PO 0.4 mg QHS LISA Administration Tuberculin PPD 0.1 ml 07/02/21 10:00 Tuberculin,Purif.Prot.Deriv. 50 Tu/Ml Vial ID 07/02/21 10:01 X1 ONE Problem List (Last Reviewed 06/24/21 @ 20:[address] Dedrick Pat MD) Hypertension (Chronic) Gastroesophageal reflux disease (Acute) Hyperlipidemia (Acute) Atrial fibrillation (Acute) Coronary artery disease (Acute) Benign prostatic hyperplasia (Acute) Acute on chronic diastolic congestive heart failure (Chronic) Acute kidney injury (Acute) Hypokalemia (Acute) Fall (Acute) Edema (Acute) Debility (Acute) Vital Signs Temp Pulse Resp BP Pulse Ox 97.9 F 66 14 115/52 L 100 06/25/21 14:00 06/25/21 14:00 06/25/21 14:00 06/25/21 14:00 06/25/21 14:00 Oxygen Delivery Method Room Air Weight: 83.915 kg Body Mass Index (BMI) 31.7 Sodium 139 mmol/L (136-145) 06/25/21 05:19 Potassium 4.2 mmol/L (3.5-5.1) 06/25/21 05:19 Chloride 104 mmol/L (98-107) 06/25/21 05:19 Carbon Dioxide 29.0 mmol/L (21.0-32.0) 06/25/21 05:19 Anion Gap 6 (5-15) 06/25/21 05:19 BUN 35 mg/dL (7-18) H 06/25/21 05:19 Creatinine 1.40 mg/dL (0.70-1.30) H 06/25/21 05:19 Est GFR (MDRD) Af Amer 62 mL/min (>60) 06/25/21 05:19 Est GFR (MDRD) Non-Af 51 mL/min (>60) L 06/25/21 05:19 BUN/Creatinine Ratio 25.0 RATIO (10-20) H 06/25/21 05:19 Glucose 133 mg/dL (74-106) H 06/25/21 05:19 Assessment/Plan: 1. Pain: Tylenol 1000mg PO Q6h PRN Pain 1-10. Please continue to monitor for increased/decreased S/S pain, PRN medication usage. 2. UTI: Keflex 500mg PO Q8h Thru 06/29/21. Urine culture as of 06/24 growing GNR >100k colonies. Please monitor and adjust therapy as clinically indicated based on culture results. 3. CAD/ CHF/ Atrial fibrillation: Eliquis 2.5mg PO BID, Lipitor 20mg PO QHS, Bumex 1mg PO BID, Coreg 25mg PO BID, Plavix 75mg PO Daily, Lisinopril 20mg PO Daily, Nitrostat SL Q5m PRN. Please continue to monitor BP, pulse, I/O's, electrolytes, S/S bleeding/bruising, lipid panel annually or sooner if clinically indicated. 4. BPH: Flomax 0.4mg PO QHS, Finasteride 5mg PO Daily. Please continue to monitor for urinary retention, S/S recurrent UTI, improvement in BPH symptoms. 5. GERD: Protonix 20mg PO Daily. Please continue to monitor for S/S GERD exacerbations. May also encourage non-pharmacologic therapies to help reduce GERD flare-ups. 6. Hypokalemia: KCl 20mEq PO BID. Current potassium level = 4.2 (WNL). Please continue to monitor potassium levels as clinically indicated. Psychotropic Medications: None Unnecessary Medications: None Bowel Regimen: Miralax 17g PO Daily, Senna/Docusate 1 tab PO BID, Dulcolax 10mg PO Daily PRN. Please continue to monitor for increased/decreased constipation and/or diarrhea. Date of Note:: 06/25/21
[2021-06-25 16:16] LABS: Bedside Glucose 135 mg/dL (70-110)
[2021-06-25] MEDS: Atorvastatin Calcium 20 MG Tablet PO (21:47)
[2021-06-25] MEDS: Tamsulosin HCl 0.4 MG Capsule PO (21:47)
[2021-06-25] MEDS: Nystatin Powder 15gm Bottle 1 APPLIC TOPICAL (21:48)
[2021-06-26] MEDS: Cephalexin 500 MG Capsule PO ×3 (05:24→21:10)
[2021-06-26] MEDS: Finasteride 5 MG Tablet PO (05:24)
[2021-06-26] MEDS: APIXABAN 2.5 MG TABLET PO ×2 (05:24→17:57)
[2021-06-26] MEDS: Bumetanide 0.5 MG Tablet 1 MG PO ×2 (05:24→17:57)
[2021-06-26] MEDS: Clopidogrel Bisulfate 75 MG Tablet PO (05:24)
[2021-06-26] MEDS: Senna/Docusate Sodium 1 Tablet PO ×2 (05:24→17:57)
[2021-06-26] MEDS: Lisinopril 20 MG Tablet PO (05:24)
[2021-06-26] MEDS: Pantoprazole Sodium 20 MG Tablet PO (05:24)
[2021-06-26] MEDS: Nystatin Powder 15gm Bottle 1 APPLIC TOPICAL ×2 (05:25→21:11)
[2021-06-26] MEDS: Menthol/Lanolin/Calamine/Znox 113 GM Tube 1 APPLIC TOPICAL (05:25)
[2021-06-26] MEDS: Acetaminophen 500 MG Tablet 1000 MG PO ×2 (05:27→17:55)
[2021-06-26 05:32] VITALS: BP 112/58; PULSE 90; RESP 18; TEMP 36.5; O2SAT 97
[2021-06-26 06:01] LABS: Bedside Glucose 130 mg/dL (70-110)
[2021-06-26] MEDS: Potassium Chloride Oral Tablet 20 MEQ PO ×2 (08:25→17:56)
[2021-06-26] MEDS: Carvedilol 25 MG Tablet PO ×2 (08:25→17:56)
[2021-06-26 08:30] VITALS: BP 105/60; PULSE 73
--- NOTE | 2021-06-26 09:44 | NURSING ---
DIANA FROM PALLIATIVE IN TO SEE PT.
--- NOTE | 2021-06-26 10:05 | CON.PCM.PA_ITS ---
Assessment & Plan Assessment/Plan (1) Atrial fibrillation: (2) Coronary artery disease: (3) Benign prostatic hyperplasia: (4) Acute on chronic diastolic congestive heart failure: (5) Acute kidney injury: (6) Hypokalemia: (7) Fall: (8) Edema: (9) Debility: (10) H/O coronary artery bypass surgery: (11) Nonrheumatic aortic (valve) stenosis: (12) Benign essential hypertension: (13) History of coronary artery stent placement: (14) History of non-ST elevation myocardial infarction (NSTEMI): (15) Back pain: PLAN: BLANCA LESLIE, is an 86 Male who was referred to [facility] Palliative for symptoms related to afib, CHF, debility and back pain from previous fall. Palliative plan would potentially include the following. Patient is agreeable to Palliative care: 1) Back pain: Lumbar Xray showed: Mild old compression fractures at L2, L3, L4.There is multilevel endplate spondylosis of the lumbar vertebrae. There is multi-level degenerative disc disease with multi-level disc space narrowing. There is multilevel endplate spondylosis of the thoracic vertebrae. There is multilevel disc space narrowing of the thoracic spine. Patient is complaining of back pain and visibly uncomfortable during visit. Tylenol is minimally effective. Collaborated with Dr. Pat and recommended Oxycodone 2.5-5mg PO every 6 hours PRN for pain. Palliative can assess if this is acute pain and determine at discharge whether appropriate to continue to monitor/manage or refer to pain management. 2) acute on chronic CHF/afib/ edema/ Hypokalemia: Palliative can follow to encourage adherence to medication management, low sodium diet, fluid restriction and follow up cardiology appointments. 3) Debility/fall: PT/OT and evaluation if patient is appropriate to live by himself. Would at least need [facility] support due to chronic conditions and instability. 4) Mood : Patient appeared down, agitated and withdrawn. Possibly related to pain. Patient resistant to lengthy visit due to increased pain. Will re-evaluate with PHQ9 and GAD7 at next visit. 5) HTN/ NSTEMI/ nonrheumatic aortic stenosis/H/o aortic stent placement/ BPH/ YOLIS/ Skin breakdown and head lesions/ Complicates overall care, prognosis and management. Defer management to PCP and specialists. Wound care to evaluate skin while inpatient. Thank you for the opportunity to participate in this patient's care, please do not hesitate to contact [facility] Pall[facility] with any further questions or concerns. Palliative direct line is [phone]. We will follow up during TCU impatient stay or discharge for Palliative consent signing. Greater than 50% of F2F visit dedicated to education and counseling of palliative care services, medications, comorbid conditions and potential assistance with management, and plan of care moving forward. Start time: 40 End time: 10:40 HPI Consult Data Date of Consult: 06/26/21 HPI Narrative HPI Narrative: BLANCA LESLIE, is a 86 Male who was referred to [facility] Palliative for symptoms related to afib and CHF. He presented to [facility] Emergency Department on 06/22/21 with bilateral extremity weeping, edema. EKG atrial fibrillation, left axis deviation, anterior infarct, age undetermined, ST&T wave abnormality, consider lateral ischemia, abnormal EKG. Noted to have weeping leg edema and a fall. Noticed increased leg swelling for 1 month and was unable to lie down to sleep. Noticed leg weeping for 2 days and fell in the bathroom and hit his back on the bathtub. No head injury. As per EMR, he was brought to ER by squad on May 20 when he fell down in the living room. Patient follows Dr. Boles last seen in the office in September 2018 almost 3 years ago. In ER, his heart rate 80/min, blood pressure 106/61. No tachypnea or hypoxia. Chest x-ray image independently reviewed shows evidence of CABG, cardiomegaly but no acute infiltrate. WBC 11.8, K 2.7, replaced. BNP 562, wrap legs with CLARI wraps. He was admitted to the hospital, given IV lasix and placed on fluid restriction for acute on chronic diastolic congestive heart failure. On 06/23/21. leg edema had improved but patient was feeling weak. Continues IV lasix with ECHO EF 60%. Shortness of breath has improved but unable to get out of the chair. Creatinine improved from 1.74 to 1.46. PT/OT for alf facility. UA consistent with urinary tract infection, urine culture sent, Rocephin 1gm given, discharged to TCU on Keflex. 06/24/21 Admitted to TCU for rehab and strenghtening before discharge home. PCP:Vincent, Specialists:Elvi, cardio, Preferred Pharmacy: [facility], Pt states he has a LW/DPOA and his DPOA is his son Joce Leslie. Patient opted for DNRCC arrest with no intubation. LNOK: Joce Leslie, son; Jamee Leslie, dil. Pt lives alone in a mobile home with a ramp to enter. Pt reports he is I in ADL's and denies concerns at home. Pt states his neighbor assists him with bringing in his groceries. Pt drives self and denies concerns with transportation.Pt has a walker at home that he just started using in the last couple of weeks d/t having trouble getting around. Pt states he has a grab bar in the bathroom. Pt denies HHC or SNF stays. Seen today in his TCU room sitting in his wheelchair. Reports that he is in such bad back pain described as 6-7/10 worse with movement and twisting. Reports that he is only been given Tylenol that is minimally effective. I am just miserable. This is from my fall. Reports that it is bilateral lower back. Has not tried ice, heat. He has had Oxycodone and Morphine and has felt that it was effective for the pain. Also has skin breakdown on his bottom that is painful. Noted shifting in his wheelchair. Palliative services explained. I don't care. I feel terrible and won't be around much longer according to how I feel. Denies any other issue besides the back pain. Reports that he has been ambulating with the walker and PT to the hallway, but has increased his back pain. Notified that Palliative liaisons will reach out for consent signing. Personal Palliative contact information and Palliative number left at bedside. [facility] Medical History Atherosclerotic heart disease of [place] coronary artery without angina pectoris Atrial fibrillation Benign essential hypertension Bilateral carotid bruits Carotid artery stenosis Congestive heart failure (CHF) Diabetes DM type 2 (diabetes mellitus, type 2) Former smoker GERD (gastroesophageal reflux disease) History of non-ST elevation myocardial infarction (NSTEMI) (06/14/06) Hyperlipidemia Left atrial enlargement Nicotine abuse Nonrheumatic aortic (valve) stenosis Obesity Rectal bleeding SBO (small bowel obstruction) Home Medications potassium chloride 20 meq PO BID 09/11/14 [History Last Taken 06/21/21] tamsulosin 0.4 mg PO QHS 09/11/14 [History Last Taken 06/23/21] nitroglycerin 0.4 mg SUBLINGUAL Q5M PRN 10/14/14 [History Last Taken 09/02/20] simvastatin 40 mg PO QHS 10/14/14 [History Last Taken 06/21/21] clopidogrel 75 mg tablet 75 mg PO QDAY tab 08/01/17 [History Last Taken 06/24/21] omeprazole 20 mg capsule,delayed release 20 mg PO QDAY 08/01/17 [History Last Taken 06/24/21] dutasteride 0.5 mg capsule 0.5 mg PO DAILY cap 05/04/19 [History Last Taken 06/24/21] hydrocodone-acetaminophen 1 tab PO Q6H PRN 3 Days #12 tab 05/15/21 [Rx Last Taken 06/21/21] Eliquis 2.5 mg PO BID 06/24/21 [History Last Taken 06/24/21] bumetanide 1 mg PO BID 06/24/21 [History Last Taken 06/21/21] carvedilol 25 mg PO BID 06/24/21 [History Last Taken 06/24/21] cephalexin 500 mg PO Q8 06/24/21 [History Last Taken Unknown] lisinopril 20 mg PO DAILY 06/24/21 [History Last Taken 06/21/21] Allergy/AdvReac Type Severity Reaction Status Date / Time contrast dye AdvReac Severe broke out Uncoded 06/22/21 18:58 Family History Mother CVA (cerebral vascular accident) Father CVA (cerebral vascular accident) Sister Hypertension Surgical History H/O coronary artery bypass surgery (12/01/01) History of appendectomy History of cholecystectomy History of coronary artery stent placement (12/17/08) History of right-sided carotid endarterectomy (10/2014) Social History household members: none Smoking Status: Former smoker alcohol intake: never substance use type: does not use diet: low salt caffeine: Yes Type: coffee Number of servings: 4 what type of physical activity do you participate in: none seatbelt use: always do you feel safe at home: Yes ROS Constitutional Constitutional: Denies chills, fatigue or fever(s) Cardiovascular Cardiovascular: Reports leg edema and weakness in extremities; Denies chest pain at rest or chest pain with activity Respiratory/Chest Respiratory/Chest: Denies chest congestion, cough or excessive phlegm production Gastrointestinal Gastrointestinal: Denies abdominal pain or constipation Genitourinary Genitourinary: Denies difficulty urinating or dysuria Musculoskeletal Musculoskeletal: Reports back pain and muscle weakness Integumentary Integumentary: Reports lesions Neurologic Neurologic: Denies confusion, numbness or tingling Psychiatric Psychiatric: Reports depression and irritability Physical Exam Const General Appearance: cooperative, anxious and disheveled Orientation / Consciousness: awake, oriented to person, oriented to place and oriented to time Nutritional Appearance: obese HEENT normocephalic HEENT Narrative: scattered open lesion on scalp and forehead Mouth: oral and palatal mucosa normal and lips normal Eyes EOMs intact bilaterally, conjunctivae normal and no scleral icterus General Eye: normal appearance of both eyes Visual Acuity: other Other Details: wearing glasses Neck full ROM, supple and no JVD Resp normal respiratory effort, no use of accessory muscles and clear to auscultation bilaterally Cardio regular rate, regular rhythm, S1 normal heart sound and S2 normal heart sound GI normal to inspection, nondistended, normoactive bowel sounds Back/Spine Lumbar Spine / Lower Back: pain with ROM and lumbar spinal tenderness Extremity Extremity Narrative: Bilateral edema with CLARI wraps in place
[2021-06-26 10:20] VITALS: PULSE 73; RESP 18; O2SAT 99
[2021-06-26] MEDS: 0.9% Saline Lock 10 ML Syringe IV (10:43)
--- NOTE | 2021-06-26 10:47 | NURSING ---
SALINE LOCK REMOVED DUE TO INFILTRATION. RN AWARE
--- NOTE | 2021-06-26 11:36 | WOUNDNOTE ---
wound photo: left foot
--- NOTE | 2021-06-26 11:36 | WOUNDNOTE ---
wound photo: left lower leg
--- NOTE | 2021-06-26 11:37 | WOUNDNOTE ---
wound photo: right foot
--- NOTE | 2021-06-26 11:37 | WOUNDNOTE ---
wound photo: left inner buttock
[2021-06-26] MEDS: oxyCODONE 5 MG Tablet PO ×2 (13:33→21:10)
[2021-06-26 14:51] VITALS: BP 125/75; PULSE 69; RESP 10; TEMP 36.3; O2SAT 97
--- NOTE | 2021-06-26 14:53 | NURSING ---
Resident and [id number], Jamee, notified of a resident and staff member testing positive for COVID.
[2021-06-26 16:01] LABS: Bedside Glucose 152 mg/dL (70-110)
--- NOTE | 2021-06-26 16:51 | NURSING ---
MADHU RN/WOUND NURSE IN TO SEE PT TODAY PER CONSULT. SEE NEW ORDERS FOR WOUND CARE.
[2021-06-26] MEDS: Juven (unflavored) Packet 1 PACKET PO (18:00)
[2021-06-26] MEDS: Tamsulosin HCl 0.4 MG Capsule PO (21:10)
[2021-06-26] MEDS: Atorvastatin Calcium 20 MG Tablet PO (21:10)
[2021-06-27 05:00] VITALS: BP 126/69; PULSE 79
[2021-06-27 06:31] LABS: Bedside Glucose 122 mg/dL (70-110)
[2021-06-27] MEDS: APIXABAN 2.5 MG TABLET PO ×2 (06:57→17:09)
[2021-06-27] MEDS: Lisinopril 20 MG Tablet PO (06:57)
[2021-06-27] MEDS: Cephalexin 500 MG Capsule PO ×3 (06:57→19:56)
[2021-06-27] MEDS: Senna/Docusate Sodium 1 Tablet PO (06:57)
[2021-06-27] MEDS: Finasteride 5 MG Tablet PO (06:57)
[2021-06-27] MEDS: Polyethylene Glycol 3350 17 GM PACKET PO (06:57)
[2021-06-27] MEDS: Pantoprazole Sodium 20 MG Tablet PO (06:57)
[2021-06-27] MEDS: Bumetanide 0.5 MG Tablet 1 MG PO ×2 (06:57→17:08)
[2021-06-27] MEDS: Clopidogrel Bisulfate 75 MG Tablet PO (06:57)
[2021-06-27] MEDS: Nystatin Powder 15gm Bottle 1 APPLIC TOPICAL ×2 (06:58→17:09)
[2021-06-27] MEDS: Juven (unflavored) Packet 1 PACKET PO ×2 (07:55→17:08)
[2021-06-27] MEDS: Carvedilol 25 MG Tablet PO ×2 (07:57→17:08)
[2021-06-27] MEDS: Potassium Chloride Oral Tablet 20 MEQ PO ×2 (07:57→17:08)
[2021-06-27] MEDS: oxyCODONE 5 MG Tablet PO ×2 (13:14→19:56)
[2021-06-27 13:49] VITALS: BP 156/63; PULSE 77; RESP 16; TEMP 36.7; O2SAT 100
[2021-06-27 16:50] LABS: Bedside Glucose 213 mg/dL (70-110)
[2021-06-27] MEDS: Acetaminophen 500 MG Tablet 1000 MG PO (18:05)
[2021-06-27] MEDS: Atorvastatin Calcium 20 MG Tablet PO (19:56)
[2021-06-27] MEDS: Tamsulosin HCl 0.4 MG Capsule PO (19:56)
[2021-06-28] MEDS: Lisinopril 20 MG Tablet PO (05:19)
[2021-06-28] MEDS: Clopidogrel Bisulfate 75 MG Tablet PO (05:19)
[2021-06-28] MEDS: Finasteride 5 MG Tablet PO (05:20)
[2021-06-28] MEDS: Cephalexin 500 MG Capsule PO ×3 (05:20→20:34)
[2021-06-28] MEDS: Pantoprazole Sodium 20 MG Tablet PO (05:20)
[2021-06-28] MEDS: Bumetanide 0.5 MG Tablet 1 MG PO ×2 (05:20→17:16)
[2021-06-28] MEDS: APIXABAN 2.5 MG TABLET PO ×2 (05:21→17:16)
[2021-06-28] MEDS: Nystatin Powder 15gm Bottle 1 APPLIC TOPICAL ×2 (05:22→17:16)
[2021-06-28] MEDS: Acetaminophen 500 MG Tablet 1000 MG PO ×3 (05:25→20:34)
[2021-06-28] MEDS: oxyCODONE 5 MG Tablet PO ×2 (05:26→17:20)
[2021-06-28 06:21] LABS: Bedside Glucose 136 mg/dL (70-110)
[2021-06-28] MEDS: Juven (unflavored) Packet 1 PACKET PO ×2 (08:16→17:15)
[2021-06-28] MEDS: Carvedilol 25 MG Tablet PO ×2 (08:19→17:16)
[2021-06-28] MEDS: Potassium Chloride Oral Tablet 20 MEQ PO ×2 (08:19→17:16)
--- NOTE | 2021-06-28 10:40 | NURSING ---
GYMNASTIC TEACHER reported to RN that patient has been receiving a lot of fluids with meals. Patient is to be on a 150ml FR d/t edema. Patient status discussed with dietitian. Dietitian recommended FR 1500 and d/c Glucerna with meals. Order entered.
[2021-06-28 14:00] VITALS: BP 112/63; PULSE 80; RESP 16; TEMP 36.8; O2SAT 99
[2021-06-28 17:15] LABS: Bedside Glucose 135 mg/dL (70-110)
[2021-06-28] MEDS: Senna/Docusate Sodium 1 Tablet PO (17:16)
[2021-06-28] MEDS: Tamsulosin HCl 0.4 MG Capsule PO (20:33)
[2021-06-28] MEDS: Atorvastatin Calcium 20 MG Tablet PO (20:34)
[2021-06-29] MEDS: APIXABAN 2.5 MG TABLET PO ×2 (05:49→17:43)
[2021-06-29] MEDS: Polyethylene Glycol 3350 17 GM PACKET PO (05:50)
[2021-06-29] MEDS: Finasteride 5 MG Tablet PO (05:50)
[2021-06-29] MEDS: Clopidogrel Bisulfate 75 MG Tablet PO (05:51)
[2021-06-29] MEDS: Lisinopril 20 MG Tablet PO (05:51)
[2021-06-29] MEDS: Senna/Docusate Sodium 1 Tablet PO ×2 (05:51→17:44)
[2021-06-29] MEDS: Pantoprazole Sodium 20 MG Tablet PO (05:51)
[2021-06-29] MEDS: Cephalexin 500 MG Capsule PO ×3 (05:51→20:52)
[2021-06-29] MEDS: Bumetanide 0.5 MG Tablet 1 MG PO ×2 (05:52→17:43)
[2021-06-29] MEDS: Nystatin Powder 15gm Bottle 1 APPLIC TOPICAL ×2 (05:52→19:53)
[2021-06-29 05:55] VITALS: BP 117/45; PULSE 74
[2021-06-29 06:31] LABS: Bedside Glucose 150 mg/dL (70-110)
[2021-06-29] MEDS: oxyCODONE 5 MG Tablet PO ×2 (08:28→14:45)
[2021-06-29] MEDS: Potassium Chloride Oral Tablet 20 MEQ PO ×2 (08:33→17:43)
[2021-06-29] MEDS: Juven (unflavored) Packet 1 PACKET PO ×2 (08:33→17:42)
[2021-06-29] MEDS: Carvedilol 25 MG Tablet PO ×2 (08:33→17:42)
[2021-06-29 08:37] VITALS: BP 112/42; PULSE 72
--- NOTE | 2021-06-29 08:38 | NURSING ---
AERIAL GUNNER CAME TO THIS NURSE AND STATED THAT PT HAS A SKIN TEAR ON RIGHT HAND. THIS NURSE TO PT ROOM AND ASKED PT WHAT HAPPENED AND PT STATED HE HIT HIS HAND ON THE WHEEL CHAIR WHEN TRYING TO UNLOCK IT. DRESSING APPLIED. RN AWARE
[2021-06-29] MEDS: Acetaminophen 500 MG Tablet 1000 MG PO (13:27)
[2021-06-29 13:35] VITALS: BP 111/58; PULSE 86; RESP 18; TEMP 36.4; O2SAT 99
--- NOTE | 2021-06-29 13:45 | NURSING ---
PT CRYING OUT IN PAIN FROM SPASMS IN HIS HIP PT HAS HEAT AND ICE. PRN TYLENOL GIVEN. NEXT OXY NOT DO TILL 1430. REPORTED TO RN
--- NOTE | 2021-06-29 13:48 | NURSING ---
MADHU RN/WOUND NURSE DID PT DRESSINGS TODAY.
--- NOTE | 2021-06-29 13:57 | WOUNDNOTE ---
wound photo: left lower leg/foot
--- NOTE | 2021-06-29 13:58 | WOUNDNOTE ---
wound photo: right lower leg/foot
[2021-06-29 16:06] LABS: Bedside Glucose 189 mg/dL (70-110)
[2021-06-29 19:39] VITALS: PULSE 63; RESP 16; O2SAT 99
[2021-06-29] MEDS: oxyCODONE 5 MG Tablet 10 MG PO (19:50)
[2021-06-29] MEDS: Tamsulosin HCl 0.4 MG Capsule PO (20:52)
[2021-06-29] MEDS: Atorvastatin Calcium 20 MG Tablet PO (20:52)
[2021-06-30 05:56] VITALS: BP 115/83; PULSE 75
[2021-06-30] MEDS: Polyethylene Glycol 3350 17 GM PACKET PO (05:57)
[2021-06-30] MEDS: APIXABAN 2.5 MG TABLET PO ×2 (05:58→17:18)
[2021-06-30] MEDS: Pantoprazole Sodium 20 MG Tablet PO (05:58)
[2021-06-30] MEDS: Bumetanide 0.5 MG Tablet 1 MG PO (05:58)
[2021-06-30] MEDS: Finasteride 5 MG Tablet PO (05:58)
[2021-06-30] MEDS: Senna/Docusate Sodium 1 Tablet PO ×2 (05:58→17:17)
[2021-06-30] MEDS: Clopidogrel Bisulfate 75 MG Tablet PO (05:58)
[2021-06-30] MEDS: Lisinopril 20 MG Tablet PO (05:58)
[2021-06-30] MEDS: Nystatin Powder 15gm Bottle 1 APPLIC TOPICAL ×2 (05:58→17:19)
[2021-06-30 06:36] LABS: Bedside Glucose 129 mg/dL (70-110)
[2021-06-30] MEDS: Juven (unflavored) Packet 1 PACKET PO ×2 (08:05→17:16)
[2021-06-30] MEDS: oxyCODONE 5 MG Tablet 10 MG PO ×3 (08:05→21:35)
[2021-06-30] MEDS: Carvedilol 25 MG Tablet PO (08:05)
[2021-06-30] MEDS: Potassium Chloride Oral Tablet 20 MEQ PO ×2 (08:05→17:18)
--- NOTE | 2021-06-30 08:30 | NURSING ---
Addendum entered by Nakita Huston 06/30/21 18:26: N.O. Medrol dose pack Original Note: Pt tearful and crying this morning with back pain. Oxy and tylenol given for pain but was not effective. KPAD put on pt's lower back for pain, which did seem to ease it a little. Pt reports new numbness to BLE that comes and goes, pt states he is unable to tolerate laying down or standing for xray. Message left for Dr. Pat.
[2021-06-30] MEDS: Acetaminophen 500 MG Tablet 1000 MG PO ×2 (08:57→17:20)
[2021-06-30 14:00] VITALS: BP 92/44; PULSE 74; RESP 16; TEMP 36.6; O2SAT 97
[2021-06-30 15:00] VITALS: BP 91/47
[2021-06-30] MEDS: Tamsulosin HCl 0.4 MG Capsule PO (20:59)
[2021-06-30] MEDS: Atorvastatin Calcium 20 MG Tablet PO (20:59)
[2021-07-01] MEDS: Clopidogrel Bisulfate 75 MG Tablet PO (05:17)
[2021-07-01] MEDS: Senna/Docusate Sodium 1 Tablet PO ×2 (05:17→16:53)
[2021-07-01] MEDS: Bumetanide 0.5 MG Tablet 1 MG PO ×2 (05:17→16:52)
[2021-07-01] MEDS: Polyethylene Glycol 3350 17 GM PACKET PO (05:17)
[2021-07-01] MEDS: Pantoprazole Sodium 20 MG Tablet PO (05:17)
[2021-07-01] MEDS: Lisinopril 20 MG Tablet PO (05:17)
[2021-07-01] MEDS: Finasteride 5 MG Tablet PO (05:17)
[2021-07-01] MEDS: APIXABAN 2.5 MG TABLET PO ×2 (05:17→16:52)
[2021-07-01] MEDS: Nystatin Powder 15gm Bottle 1 APPLIC TOPICAL ×2 (05:23→16:53)
[2021-07-01 05:27] VITALS: BP 126/53; PULSE 74
[2021-07-01 06:36] LABS: Bedside Glucose 151 mg/dL (70-110)
[2021-07-01] MEDS: Carvedilol 25 MG Tablet PO (07:58)
[2021-07-01] MEDS: Juven (unflavored) Packet 1 PACKET PO ×2 (07:59→16:49)
[2021-07-01] MEDS: Potassium Chloride Oral Tablet 20 MEQ PO ×2 (07:59→16:50)
[2021-07-01] MEDS: oxyCODONE 5 MG Tablet 10 MG PO ×2 (08:03→20:40)
[2021-07-01] MEDS: Acetaminophen 500 MG Tablet 1000 MG PO (08:04)
[2021-07-01] MEDS: MethylPREDNISolone DosePak 4 MG BOX PO ×4 (08:07→20:37)
[2021-07-01 08:09] VITALS: BP 111/56; PULSE 75
--- NOTE | 2021-07-01 10:03 | CASEMGMT ---
Social Work Completed MDS assessment. Pt expressed depressive symptoms and noted he has thought of being better off . Explored feelings and statement further. Pt very upset about the severe amount of pain he is in and the little relief he is getting. All of the depressive symptoms relates back to his severe pain. Pt reports he has no intent to harm self, no plan. SW offered ongoing support as needed.Pt reports he has no intent to harm self, no plan. SW offered ongoing support as needed. Nursing is collaborating with Doctor and Palliative care to determine effective interventions. Vesta Carter, MILL ATTENDANT IMAGE SCIENTIST
--- NOTE | 2021-07-01 12:45 | NURSING ---
Palliative came in today for consult with another pt, but was updated on N.O. for medrol dose pack and pain. Stated they would be back in this week and would check on him then and see if the steroids are helping or if he would need something else.
[2021-07-01 12:56] VITALS: BP 100/52; PULSE 74; RESP 17; TEMP 36.6; O2SAT 98
[2021-07-01 16:58] VITALS: BP 98/68; PULSE 74
[2021-07-01 20:23] VITALS: PULSE 78; RESP 18; O2SAT 99
[2021-07-01] MEDS: Tamsulosin HCl 0.4 MG Capsule PO (20:38)
[2021-07-01] MEDS: Atorvastatin Calcium 20 MG Tablet PO (20:38)
[2021-07-02 05:51] LABS: Absolute Neutrophil Count 9.9 X10^3/uL (2.0-7.7); Basophil# 0.01 X10^3/uL; Basophil% 0.1 % (0-1); Hematocrit 34.1 % (40-54); Hemoglobin 11.1 g/dL (13.0-16.5); Lymphocyte % 15.4 % (19-41); Mean Corp Hgb Conc 32.6 g/dL (32-36); Mean Corpuscular Hgb 28.5 pg (27.0-32.0); Mean Corpuscular Volume 87.7 fL (80-94); Monocyte# 0.34 X10^3/uL; Monocyte% 2.8 % (0-10); NRBC Flagged by Analyzer 0 % (0-5); Neutrophil # 9.86 X10^3/uL (2.7-7.7); Neutrophil % 79.8 % (47-70); Platelet Count 256 K/mm3 (150-450); RBC Distribution Width CV 14.6 % (11.6-14.6); RBC Distribution Width SD 46.5 fl (35.1-43.9); Red Blood Count 3.89 M/mm3 (4.6-6.2); White Blood Count 12.3 K/mm3 (4.4-11.0)
[2021-07-02 06:31] LABS: Anion Gap 4 (5-15); BUN 85 mg/dL (7-18); Chloride 107 mmol/L (98-107); Creatinine, Serum 1.44 mg/dL (0.70-1.30); EST Glomerular Filtration Rate 50 mL/min (>60); Est Glom Filt Rate - Afr Amer 60 mL/min (>60); Glucose 157 mg/dL (74-106); Potassium 4.5 mmol/L (3.5-5.1); Sodium Level 142 mmol/L (136-145)
[2021-07-02] MEDS: Polyethylene Glycol 3350 17 GM PACKET PO (06:31)
[2021-07-02] MEDS: Senna/Docusate Sodium 1 Tablet PO ×2 (06:32→17:52)
[2021-07-02] MEDS: Finasteride 5 MG Tablet PO (06:32)
[2021-07-02] MEDS: Clopidogrel Bisulfate 75 MG Tablet PO (06:32)
[2021-07-02] MEDS: APIXABAN 2.5 MG TABLET PO ×2 (06:32→17:51)
[2021-07-02] MEDS: Pantoprazole Sodium 20 MG Tablet PO (06:32)
[2021-07-02] MEDS: Nystatin Powder 15gm Bottle 1 APPLIC TOPICAL ×2 (06:36→17:52)
[2021-07-02 07:14] VITALS: BP 98/46; PULSE 72
[2021-07-02 07:47] VITALS: BP 139/57; PULSE 83; RESP 18; TEMP 36.5; O2SAT 99
[2021-07-02] MEDS: MethylPREDNISolone DosePak 4 MG BOX PO ×4 (07:48→20:00)
[2021-07-02] MEDS: Carvedilol 25 MG Tablet PO ×2 (07:48→18:11)
[2021-07-02] MEDS: Juven (unflavored) Packet 1 PACKET PO ×2 (07:49→17:46)
[2021-07-02] MEDS: Bumetanide 0.5 MG Tablet 1 MG PO ×2 (07:49→18:11)
[2021-07-02] MEDS: Lisinopril 20 MG Tablet PO (07:49)
[2021-07-02] MEDS: Potassium Chloride Oral Tablet 20 MEQ PO ×2 (07:49→17:46)
[2021-07-02] MEDS: Acetaminophen 500 MG Tablet 1000 MG PO ×2 (07:56→18:57)
[2021-07-02] MEDS: oxyCODONE 5 MG Tablet 10 MG PO ×2 (07:57→18:57)
[2021-07-02] MEDS: Tuberculin,Purif.prot.deriv. 50 TU/ML Vial 0.1 ML ID (09:26)
--- NOTE | 2021-07-02 09:52 | NURSING ---
wound nurse in at this time and changed wound dressings to BLE.
--- NOTE | 2021-07-02 10:15 | WOUNDNOTE ---
wound photo: buttocks
--- NOTE | 2021-07-02 14:05 | CASEMGMT ---
Addendum entered by Vesta Carter 07/02/21 14:09: Received son's email address to email Medicaid application and SNF list to assist pt. Original Note: Social Work IDT met with patient and son via conference call for care plan meeting. Discussed patient's progress in PT/OT and nursing. Pt limited in progress with therapy r/t pain. Explained [employer] insurance with NRD 07/06 and continued stay is not guaranteed with each review. Inquired about DC plans if pt is not able to be independent at home alone. Pt concluded he would need a SNF. Provided SNF list and Medicaid application. SW to continue to follow. Vesta Carter, AGENCY DIRECTOR INSTRUCTIONAL AIDE
--- NOTE | 2021-07-02 16:16 | NURSING ---
Resident and [id number], Jamee, notified of 2 residents testing positive for COVID.
[2021-07-02 18:11] VITALS: BP 120/49
[2021-07-02 18:12] VITALS: BP 118/57; PULSE 84
[2021-07-02] MEDS: Atorvastatin Calcium 20 MG Tablet PO (20:00)
[2021-07-02] MEDS: Tamsulosin HCl 0.4 MG Capsule PO (20:00)
[2021-07-02 21:33] VITALS: PULSE 59; RESP 18; O2SAT 98
[2021-07-03] MEDS: Pantoprazole Sodium 20 MG Tablet PO (05:07)
[2021-07-03] MEDS: Bumetanide 0.5 MG Tablet 1 MG PO (05:07)
[2021-07-03] MEDS: Lisinopril 20 MG Tablet PO (05:07)
[2021-07-03] MEDS: APIXABAN 2.5 MG TABLET PO ×2 (05:07→18:05)
[2021-07-03] MEDS: Senna/Docusate Sodium 1 Tablet PO ×2 (05:07→18:06)
[2021-07-03] MEDS: Clopidogrel Bisulfate 75 MG Tablet PO (05:07)
[2021-07-03] MEDS: Polyethylene Glycol 3350 17 GM PACKET PO (05:07)
[2021-07-03] MEDS: Finasteride 5 MG Tablet PO (05:07)
[2021-07-03] MEDS: Nystatin Powder 15gm Bottle 1 APPLIC TOPICAL ×2 (05:12→20:55)
[2021-07-03] MEDS: oxyCODONE 5 MG Tablet 10 MG PO ×3 (05:14→20:54)
[2021-07-03 05:33] VITALS: BP 111/57; PULSE 87
[2021-07-03] MEDS: Carvedilol 25 MG Tablet PO (07:56)
[2021-07-03] MEDS: Potassium Chloride Oral Tablet 20 MEQ PO ×2 (07:56→18:05)
[2021-07-03] MEDS: Juven (unflavored) Packet 1 PACKET PO ×2 (07:56→18:05)
[2021-07-03] MEDS: MethylPREDNISolone DosePak 4 MG BOX PO ×4 (07:57→20:56)
[2021-07-03] MEDS: Acetaminophen 500 MG Tablet 1000 MG PO (08:02)
[2021-07-03 08:05] VITALS: BP 111/58; PULSE 76
--- NOTE | 2021-07-03 12:42 | CASEMGMT ---
Social Work Received completed Medicaid application from son and request to refer to [facility]. Referral made and faxed application to [facility]. Vesta Carter ,ADMINISTRATIVE TECH TRACK SURFACING MACHINE OPERATOR
[2021-07-03 14:00] VITALS: BP 70/34; PULSE 62; RESP 12; TEMP 35.7; O2SAT 98
[2021-07-03 14:30] VITALS: BP 80/45
--- NOTE | 2021-07-03 14:31 | NURSING ---
AID CAME TO THIS NURSE AND STATED PT BP WAS LOW. THIS NURSE TOOK BP MANUALLY AND IT WAS 80/45. REPORTED TO RN AND DR. NYE. PER CANCEL THE FLUID RESTRICTIONS.
[2021-07-03 18:03] VITALS: BP 91/42; PULSE 75
[2021-07-03] MEDS: Atorvastatin Calcium 20 MG Tablet PO (20:55)
[2021-07-03] MEDS: Tamsulosin HCl 0.4 MG Capsule PO (20:56)
[2021-07-03 22:00] VITALS: PULSE 90; O2SAT 99
[2021-07-04 05:30] VITALS: BP 124/60; PULSE 60
[2021-07-04] MEDS: Senna/Docusate Sodium 1 Tablet PO ×2 (05:33→17:44)
[2021-07-04] MEDS: Bumetanide 0.5 MG Tablet 1 MG PO ×2 (05:33→17:43)
[2021-07-04] MEDS: Pantoprazole Sodium 20 MG Tablet PO (05:33)
[2021-07-04] MEDS: APIXABAN 2.5 MG TABLET PO ×2 (05:33→17:44)
[2021-07-04] MEDS: Polyethylene Glycol 3350 17 GM PACKET PO (05:33)
[2021-07-04] MEDS: Clopidogrel Bisulfate 75 MG Tablet PO (05:33)
[2021-07-04] MEDS: Finasteride 5 MG Tablet PO (05:33)
[2021-07-04] MEDS: Nystatin Powder 15gm Bottle 1 APPLIC TOPICAL ×2 (05:34→21:37)
[2021-07-04] MEDS: Lisinopril 20 MG Tablet PO (05:36)
[2021-07-04] MEDS: oxyCODONE 5 MG Tablet 10 MG PO ×2 (05:40→17:49)
[2021-07-04] MEDS: Juven (unflavored) Packet 1 PACKET PO ×2 (08:20→17:42)
[2021-07-04] MEDS: MethylPREDNISolone DosePak 4 MG BOX PO ×3 (08:20→21:37)
[2021-07-04] MEDS: Potassium Chloride Oral Tablet 20 MEQ PO ×2 (08:21→17:42)
[2021-07-04] MEDS: Carvedilol 25 MG Tablet PO ×2 (08:22→17:43)
[2021-07-04] MEDS: Acetaminophen 500 MG Tablet 1000 MG PO (08:28)
[2021-07-04 08:30] VITALS: BP 124/72; PULSE 90
[2021-07-04 10:55] VITALS: PULSE 64; RESP 18; O2SAT 98
[2021-07-04] MEDS: Bisacodyl 5 MG Tablet 10 MG PO (11:43)
[2021-07-04 14:00] VITALS: BP 104/47; PULSE 75; RESP 17; TEMP 36.1; O2SAT 98
[2021-07-04 17:54] VITALS: BP 115/59; PULSE 74
[2021-07-04] MEDS: Atorvastatin Calcium 20 MG Tablet PO (21:37)
[2021-07-04] MEDS: Tamsulosin HCl 0.4 MG Capsule PO (21:49)
[2021-07-05] MEDS: Pantoprazole Sodium 20 MG Tablet PO (06:15)
[2021-07-05] MEDS: Lisinopril 20 MG Tablet PO (06:15)
[2021-07-05] MEDS: Bumetanide 0.5 MG Tablet 1 MG PO ×2 (06:15→17:59)
[2021-07-05] MEDS: APIXABAN 2.5 MG TABLET PO ×2 (06:16→17:51)
[2021-07-05] MEDS: Clopidogrel Bisulfate 75 MG Tablet PO (06:16)
[2021-07-05] MEDS: Finasteride 5 MG Tablet PO (06:16)
[2021-07-05] MEDS: Nystatin Powder 15gm Bottle 1 APPLIC TOPICAL ×2 (06:19→22:11)
[2021-07-05 06:22] VITALS: BP 144/68; PULSE 85
[2021-07-05] MEDS: Juven (unflavored) Packet 1 PACKET PO ×2 (07:56→17:50)
[2021-07-05] MEDS: Potassium Chloride Oral Tablet 20 MEQ PO ×2 (07:57→17:51)
[2021-07-05] MEDS: MethylPREDNISolone DosePak 4 MG BOX PO ×2 (07:57→22:12)
[2021-07-05] MEDS: oxyCODONE 5 MG Tablet 10 MG PO ×2 (08:01→23:08)
[2021-07-05 08:10] VITALS: BP 91/43; PULSE 92
[2021-07-05 14:00] VITALS: BP 103/48; PULSE 76; RESP 17; TEMP 36.2; O2SAT 98
[2021-07-05] MEDS: Senna/Docusate Sodium 1 Tablet PO (17:51)
[2021-07-05] MEDS: Carvedilol 25 MG Tablet PO (17:59)
[2021-07-05 18:03] VITALS: BP 111/64; PULSE 77
--- NOTE | 2021-07-05 21:54 | NURSING ---
New order received to check BMP and CBC in am, then weekly.
[2021-07-05] MEDS: Tamsulosin HCl 0.4 MG Capsule PO (22:11)
[2021-07-05] MEDS: Atorvastatin Calcium 20 MG Tablet PO (22:11)
[2021-07-05] MEDS: Acetaminophen 500 MG Tablet 1000 MG PO (23:07)
[2021-07-06] MEDS: Clopidogrel Bisulfate 75 MG Tablet PO (05:25)
[2021-07-06] MEDS: Finasteride 5 MG Tablet PO (05:25)
[2021-07-06] MEDS: Lisinopril 20 MG Tablet PO (05:26)
[2021-07-06] MEDS: Bumetanide 0.5 MG Tablet 1 MG PO (05:26)
[2021-07-06] MEDS: Nystatin Powder 15gm Bottle 1 APPLIC TOPICAL ×2 (05:26→18:22)
[2021-07-06] MEDS: Pantoprazole Sodium 20 MG Tablet PO (05:26)
[2021-07-06] MEDS: APIXABAN 2.5 MG TABLET PO ×2 (05:26→18:18)
[2021-07-06 05:47] LABS: Absolute Lymphocyte Count 1.99 X10^3/uL (0.83-4.51); Absolute Neutrophil Count 10.4 X10^3/uL (2.0-7.7); Basophil# 0.02 X10^3/uL; Basophil% 0.2 % (0-1); Eosinophil# 0.01 X10^3/uL; Eosinophils% 0.1 % (0-5); Hematocrit 36.2 % (40-54); Hemoglobin 12.2 g/dL (13.0-16.5); Lymphocyte # 1.99 X10^3/ul (0.83-4.51); Mean Corp Hgb Conc 33.7 g/dL (32-36); Monocyte# 0.63 X10^3/uL; Monocyte% 4.7 % (0-10); NRBC Flagged by Analyzer 0 % (0-5); Neutrophil # 10.44 X10^3/uL (2.7-7.7); Neutrophil % 78.6 % (47-70); Platelet Count 224 K/mm3 (150-450); RBC Distribution Width CV 14.4 % (11.6-14.6); RBC Distribution Width SD 44.6 fl (35.1-43.9); Red Blood Count 4.21 M/mm3 (4.6-6.2); White Blood Count 13.3 K/mm3 (4.4-11.0)
[2021-07-06 06:18] LABS: Anion Gap 6 (5-15); BUN 87 mg/dL (7-18); Calcium,Total 8.2 mg/dL (8.5-10.1); Chloride 102 mmol/L (98-107); Creatinine, Serum 1.38 mg/dL (0.70-1.30); EST Glomerular Filtration Rate 52 mL/min (>60); Est Glom Filt Rate - Afr Amer 63 mL/min (>60); Estimated Creatinine Clearance 32.77 ml/min; Glucose 178 mg/dL (74-106); Potassium 4.4 mmol/L (3.5-5.1); Sodium Level 141 mmol/L (136-145)
[2021-07-06] MEDS: Potassium Chloride Oral Tablet 20 MEQ PO ×2 (08:04→18:17)
[2021-07-06] MEDS: MethylPREDNISolone DosePak 4 MG BOX PO (08:05)
[2021-07-06] MEDS: Juven (unflavored) Packet 1 PACKET PO ×2 (08:05→18:17)
[2021-07-06] MEDS: oxyCODONE 5 MG Tablet 10 MG PO ×3 (08:05→18:21)
[2021-07-06] MEDS: Carvedilol 25 MG Tablet PO (08:05)
--- NOTE | 2021-07-06 11:31 | CASEMGMT ---
Addendum entered by Vesta Carter 07/06/21 15:40: Received pending #[id number]. Left message with [facility] to follow up. Contacted son to inquire about additional SNFs. Son not familiar with area, but would like him to stay in [facility] since family lives there. Requested referral to [facility] [place]. Contacted [facility] - they are unable to accept MDP/no beds. SW to continue to follow. Original Note: Social Work Insurance issued LCD 07/08, [place] 07/09. Email sent to S to inquire about MCDP#. Followed up with [facility] - they asked to refax referral, but have bes available and can take MCDP. Refaxed referral. Will continue to follow. Vesta Carter, TRICE X RAY TECHNOLOGIST
[2021-07-06] MEDS: Acetaminophen 500 MG Tablet 1000 MG PO (12:35)
--- NOTE | 2021-07-06 12:57 | MDS.RN ---
Information for the mds was obtained from review of the clinical record, interview of resident, staff, and direct observation of resident's care.
[2021-07-06 14:00] VITALS: BP 83/39; PULSE 73; RESP 16; TEMP 36.1; O2SAT 98
--- NOTE | 2021-07-06 14:38 | NURSING ---
BP low. Fluid restricitions were dc'd earlier because of this. Resident encouraged to drink water at beside. Reports feeling tired. Up in wheelchair now and does not want to go to bed at this time. WIll continue to monitor and update Dr Pat about low BP readings.
--- NOTE | 2021-07-06 14:53 | WOUNDNOTE ---
wound photo: left foot/leg
--- NOTE | 2021-07-06 14:54 | WOUNDNOTE ---
wound photo: right foot
[2021-07-06 16:27] VITALS: BP 99/57
[2021-07-06] MEDS: Senna/Docusate Sodium 1 Tablet PO (18:18)
[2021-07-06] MEDS: Tamsulosin HCl 0.4 MG Capsule PO (22:30)
[2021-07-06] MEDS: Atorvastatin Calcium 20 MG Tablet PO (22:30)
[2021-07-07] MEDS: Nystatin Powder 15gm Bottle 1 APPLIC TOPICAL ×2 (05:02→22:20)
[2021-07-07] MEDS: Bumetanide 0.5 MG Tablet 1 MG PO (05:07)
[2021-07-07] MEDS: APIXABAN 2.5 MG TABLET PO ×2 (05:07→17:52)
[2021-07-07] MEDS: Polyethylene Glycol 3350 17 GM PACKET PO (05:07)
[2021-07-07] MEDS: Pantoprazole Sodium 20 MG Tablet PO (05:08)
[2021-07-07] MEDS: Clopidogrel Bisulfate 75 MG Tablet PO (05:08)
[2021-07-07] MEDS: Finasteride 5 MG Tablet PO (05:08)
[2021-07-07] MEDS: Senna/Docusate Sodium 1 Tablet PO ×2 (05:08→17:52)
[2021-07-07] MEDS: Lisinopril 20 MG Tablet PO (05:09)
[2021-07-07 05:16] VITALS: BP 110/65; PULSE 80; RESP 16; O2SAT 96
[2021-07-07] MEDS: Acetaminophen 500 MG Tablet 1000 MG PO (08:16)
[2021-07-07] MEDS: Carvedilol 25 MG Tablet PO (08:16)
[2021-07-07] MEDS: oxyCODONE 5 MG Tablet 10 MG PO ×3 (08:17→22:25)
[2021-07-07] MEDS: Juven (unflavored) Packet 1 PACKET PO ×2 (08:17→17:51)
[2021-07-07] MEDS: Potassium Chloride Oral Tablet 20 MEQ PO ×2 (08:17→17:51)
--- NOTE | 2021-07-07 09:44 | CASEMGMT ---
Social Work Left another message with admissions at [facility]. Awaiting return call. TRICE House DRIVER RECRUITER
[2021-07-07 12:09] VITALS: BP 90/43; PULSE 74; RESP 18; TEMP 35.6; O2SAT 100
--- NOTE | 2021-07-07 12:10 | NURSING ---
pt c/o feeling like he was to pass out. V.S. taken and pt transferred to bed. Will continue to monitor.
--- NOTE | 2021-07-07 15:26 | CASEMGMT ---
Social Work Contacted [facility] - ask to speak live to admissions. Spoke with Dia, admissions - she expressed DON having concerns about progress notes stating suicidal ideations. Explained this worker assessed pt and no intent for self harm or plan; pt was having severe pain resulting in depressive symptoms. Dia to follow up with DON. This worker explained this is pt's FOC and an answered needs to be determined by end of business day to properly plan for pt DC 07/09. Dia expressed understanding. TRICE HouseW
--- NOTE | 2021-07-07 19:33 | PCM.DC.SUM ---
Providers Date of Admission: 06/24/21 Primary Care Physician: Dr. Tommy Kaur MD Consultations 06/25/21 07:37 Consult: Onc/Wound/curriculum assistant principal Routine Comment: Reason For Visit: LEG SWELLING Diagnosis Discharge Diagnosis (1) Atrial fibrillation: Status: Acute Code(s): I48.91 - Unspecified atrial fibrillation (2) Coronary artery disease: Status: Acute Code(s): I25.10 - Atherosclerotic heart disease of [place] coronary artery without angina pectoris (3) Benign prostatic hyperplasia: Status: Acute Code(s): N40.0 - Benign prostatic hyperplasia without lower urinary tract symptoms (4) Acute on chronic diastolic congestive heart failure: Status: Chronic Code(s): I50.33 - Acute on chronic diastolic (congestive) heart failure (5) Acute kidney injury: Status: Acute Code(s): N17.9 - Acute kidney failure, unspecified (6) Hypokalemia: Status: Acute Code(s): E87.6 - Hypokalemia (7) Fall: Status: Acute Code(s): W19.XXXA - Unspecified fall, initial encounter (8) Edema: Status: Acute Code(s): R60.9 - Edema, unspecified (9) Debility: Status: Acute Code(s): R53.81 - Other malaise (10) H/O coronary artery bypass surgery: Status: Resolved Code(s): Z95.1 - Presence of aortocoronary bypass graft (11) Nonrheumatic aortic (valve) stenosis: Status: Chronic Code(s): I35.0 - Nonrheumatic aortic (valve) stenosis (12) Benign essential hypertension: Status: Chronic Code(s): I10 - Essential (primary) hypertension (13) History of coronary artery stent placement: Status: Resolved Code(s): Z95.5 - Presence of coronary angioplasty implant and graft (14) History of non-ST elevation myocardial infarction (NSTEMI): Status: Resolved Code(s): I25.2 - Old myocardial infarction (15) Back pain: Status: Acute Code(s): M54.9 - Dorsalgia, unspecified Medications at Discharge Home Medications potassium chloride 20 meq PO BID 09/11/14 tamsulosin 0.4 mg PO QHS 09/11/14 nitroglycerin 0.4 mg SUBLINGUAL Q5M PRN 10/14/14 clopidogrel 75 mg tablet 75 mg PO QDAY tab 08/01/17 Eliquis 2.5 mg PO BID 06/24/21 bumetanide 1 mg PO BID 06/24/21 carvedilol 25 mg PO BID 06/24/21 lisinopril 20 mg PO DAILY 06/24/21 acetaminophen 1,000 mg PO Q6H PRN PRN #0 tab 07/07/21 [id number]-[id number] [Federico (with collagen)] 1 packet PO BIDCM #0 ea 07/07/21 atorvastatin 20 mg PO QHS #0 tab 07/07/21 finasteride 5 mg PO DAILY #0 tab 07/07/21 nystatin [Nyamyc] 1 applic TOPICAL BID #0 g 07/07/21 oxycodone 10 mg PO Q4H PRN PRN 3 Days #36 tab 07/07/21 pantoprazole 20 mg PO DAILY #0 tab 07/07/21 polyethylene glycol 3350 17 g PO DAILY #0 ea 07/07/21 sennosides-docusate sodium [Stool Softener-Stimulant Laxat] 1 tab PO BID #0 tab 07/07/21 Hospital Course Operations None Procedures None Summary of Care Provided Minutes Spent on Discharge: 35 Hospital Course: 86 year old male with below past medical history hospitalized for edema secondary to acute on chronic diastolic congestive heart failure, complicated by acute kidney injury, urinary tract infection, admitted to TCU with debility, here for rehabilitation, strengthening, prior to discharge home alone. Resident has low back pain secondary to lumbar spinal stenosis, lumbar radiculopathy, consider MRI LS spine, pain management consultation for lumbar epidural steroid injections. Discharge to [facility] 07/09/2021, non skilled. Physical Exam Const alert and oriented x3 General Appearance: cooperative HEENT normocephalic Eyes PERRL and EOMs intact bilaterally Neck supple, no JVD and no carotid bruits Resp normal respiratory effort, normal air movement and clear to auscultation bilaterally Cardio regular rate and regular rhythm GI normal to inspection, nondistended, normoactive bowel sounds, non-tender and non-distended Extremity normal capillary refill General Extremity: Negative for edema Skin no rashes or lesions noted General Skin Exam: no breakdown Psych affect normal Appearance: appropriate Medical Records Data Medical Nutrition Assessment Dietitian: Malnutrition Criteria Met Start: 06/26/21 15:35 Freq: Status: Active Protocol: Document 06/26/21 15:35 BETTY (Rec: 06/26/21 15:35 SLA [id number]) Nutrition Malnutrition Evidence of Malnutrition Exists Yes Malnutrition (severe): Chronic Evidenced By Suboptimal Energy Intake ( Severe),Weight Loss (Severe) Clinical Problem Chronic Disease or Condition Related Malnutrition Etiology related to decreased appetite and health issues making it difficult for res to consume adequate nutrition to meet est needs Signs/Symptoms as evidenced by <50+% po intake and 26.3% wt loss x 10 months Status Active Problem Recommendation Dietitian Recommendations/Changes Will provide smaller portions per res request Will liberalize diet to Regular No Added Salt w/ 4 oz glucerna shake tid w/ meals d/ t signs/symptoms of malnutrition Rec consider appetite stimulant d/t res c/o not hungry Will order Federico bid to help w / skin healing. Weight / BMI Weight Weight: 82.1 kg Body Mass Index (BMI) 31.7 ABG / Lab / Microbiology Data Result Diagrams: 07/06/21 05:31 07/06/21 05:31 Microbiology: Microbiology 07/02/21 12:10 Nasal Secretion SARS-CoV-2 Antigen (Rapid) - Final 07/01/21 05:18 Nasal Secretion SARS-CoV-2 Antigen (Rapid) - Final D/C Instructions Discharge Diet: No restrictions Discharge Activity: Return to Normal Activity Weight Bearing Status: Weight bearing as tolerated Call your doctor if you observe: Fever of 101 or Higher, Inability to urinate, Inability to have a bowel movement, Shortness of breath, Dizziness, Fainting spells, Swelling in the ankles, Chest pain and Uncontrolled pain Additional Instructions: Discharge to [facility] 07/09/2021, non skilled. Meaningful Use Info Meaningful Use Diagnoses (Choose all that apply): None applicable Discharge Plan Admission Admit Date/Time: 06/24/21 18:50 Primary Reason for Your Visit: Debility. Attending Provider: Dedrick Pat Chi Primary Care Provider: Tommy Kaur Instructions Additional Instructions / Restrictions: Discharge to [facility] 07/09/2021, non skilled. Discharge Orders/Prescriptions Prescriptions: New atorvastatin 20 mg Tablet 20 mg PO QHS Qty: 0 RF: 0 acetaminophen 500 mg Tablet 1,000 mg PO Q6H PRN PRN (Reason: Pain Score 1-10) Qty: 0 RF: 0 pantoprazole 20 mg Tablet,Delayed Release (Dr/Ec) 20 mg PO DAILY Qty: 0 RF: 0 finasteride 5 mg Tablet 5 mg PO DAILY Qty: 0 RF: 0 Federico (with collagen) 7-7-1.5 gram Powder In Packet 1 packet PO BIDCM Qty: 0 RF: 0 polyethylene glycol 3350 17 gram Powder In Packet 17 g PO DAILY Qty: 0 RF: 0 nystatin [Nyamyc] 100,000 unit/gram Powder 1 applic topical BID Qty: 0 RF: 0 sennosides-docusate sodium [Stool Softener-Stimulant Laxat] 8.6-50 mg Tablet 1 tab PO BID Qty: 0 RF: 0 oxycodone 5 mg Tablet 10 mg PO Q4H PRN PRN (Reason: Pain Score 6-10) 3 Days Qty: 36 RF: 0 Continued clopidogrel 75 mg tablet 75 mg PO QDAY RF: 0 potassium chloride 20 MEQ tablet 20 meq PO BID RF: 0 tamsulosin 0.4 MG capsule,extended release 24hr 0.4 mg PO QHS RF: 0 nitroglycerin 0.4 MG tablet 0.4 mg SUBLINGUAL Q5M PRN (Reason: Chest Pain) RF: 0 carvedilol 25 MG tablet 25 mg PO BID RF: 0 lisinopril 20 MG tablet 20 mg PO DAILY RF: 0 bumetanide 0.5 mg tablet 1 mg PO BID RF: 0 Eliquis 2.5 mg tablet 2.5 mg PO BID RF: 0 Discontinued omeprazole 20 mg capsule,delayed release(DR/EC) 20 mg PO QDAY RF: 0 dutasteride 0.5 mg capsule 0.5 mg PO DAILY RF: 0 simvastatin 40 MG tablet 40 mg PO QHS RF: 0 hydrocodone-acetaminophen 5-325 mg tablet 1 tab PO Q6H PRN (Reason: pain) 3 Days Qty: 12 RF: 0 cephalexin 500 mg capsule 500 mg PO Q8 RF: 0 Referrals / Follow Up: Tommy Kaur MD [Primary Care Provider] - Disposition Disposition (needs filled in before D/C Order can be placed): NonSkilled NH/[facility]
[2021-07-07 22:00] VITALS: PULSE 57; RESP 16; O2SAT 97
[2021-07-07] MEDS: Atorvastatin Calcium 20 MG Tablet PO (22:21)
[2021-07-07] MEDS: Tamsulosin HCl 0.4 MG Capsule PO (22:21)
[2021-07-08] MEDS: Polyethylene Glycol 3350 17 GM PACKET PO (05:32)
[2021-07-08] MEDS: Clopidogrel Bisulfate 75 MG Tablet PO (05:33)
[2021-07-08] MEDS: APIXABAN 2.5 MG TABLET PO ×2 (05:33→20:33)
[2021-07-08] MEDS: Nystatin Powder 15gm Bottle 1 APPLIC TOPICAL ×2 (05:33→20:33)
[2021-07-08] MEDS: Pantoprazole Sodium 20 MG Tablet PO (05:34)
[2021-07-08] MEDS: Senna/Docusate Sodium 1 Tablet PO ×2 (05:34→20:34)
[2021-07-08] MEDS: Finasteride 5 MG Tablet PO (05:34)
[2021-07-08 05:38] VITALS: BP 92/53; PULSE 82
[2021-07-08] MEDS: Juven (unflavored) Packet 1 PACKET PO ×2 (08:21→20:33)
[2021-07-08] MEDS: Potassium Chloride Oral Tablet 20 MEQ PO (08:21)
[2021-07-08 08:24] VITALS: BP 95/47; PULSE 88
[2021-07-08] MEDS: oxyCODONE 5 MG Tablet 10 MG PO ×3 (08:26→20:39)
--- NOTE | 2021-07-08 09:27 | CASEMGMT ---
Discharge Community Relations Advisor Phone call to Jenise at [facility]. She said she would review but, because of other commitments she is not sure they can accept him referral sent. Phone call to Francine at [facility]. They have beds available and will consider referral. Referral faxed. Will follow up. Le Sexton Discharge Community Relations Advisor
[2021-07-08] MEDS: Bisacodyl 5 MG Tablet 10 MG PO (11:29)
--- NOTE | 2021-07-08 11:32 | NURSING ---
Pallative up to see pt this shift and scheduled oxycodone q8h and PRN for increased pain . Pt also noted to have increased Anxiety this shift palliative started pt on Martin Xanax and PRN. Will continue to monitor pain and Anxiety. Pt has not had Bowel movement since 07/05 PRN Dulcolax and prune juice given at this time. Call light within reach.
--- NOTE | 2021-07-08 12:09 | CASEMGMT ---
Discharge Front Desk Person Followed up with Shae at [facility] and there are no beds available. Followed up with Francine at [facility] and referral is being reviewed and they will get back to us. Le Sexton Discharge Front Desk Person
[2021-07-08] MEDS: ALPRAZolam 0.25 MG Tablet 0.125 MG PO ×2 (12:15→20:15)
--- NOTE | 2021-07-08 12:28 | NURSING ---
Pt upset d/t being bothered past 2200 about menu. Pt filled out Breakfast menu for this nurse and did not want anything for Lunch and Dinner. Educated pt on importance of eating a well balanced diet. Pt stated that nursing staff keep harassing him about eating and at night being bothered with it. He stated he is going to go on a hunger Strike. Let pt know that I would pass along in report that he doesn't want to be bothered after 2200 d/t being woke up and not being able to fall back asleep.
--- NOTE | 2021-07-08 13:35 | CASEMGMT ---
Discharge Content Architect Crowley back from Francine at [facility] and they declined referral.
[2021-07-08 13:53] VITALS: BP 97/56; PULSE 91
[2021-07-08 14:00] VITALS: BP 78/48; PULSE 87; RESP 18; TEMP 35.9; O2SAT 100
--- NOTE | 2021-07-08 14:21 | CASEMGMT ---
Discharge Internal Carver Faxed over referral to Elsa at [facility]. Will follow up. Le Sexton Discharge Internal Carver
--- NOTE | 2021-07-08 14:40 | CASEMGMT ---
Social Work Phone call placed to pt son Joce. Informed Joce that the following facilities have been contacted and cannot take pt: Rosie Mccurdy [facility] Sayra Mccurdy Discussed further options for SNF placement with Joce and reviewed SNF list including quality and resource use data. Joce interested in a facility in [place] with a high star rating or he would be open to [facility] in [place] or [facility]. Phone calls placed: [facility] - [facility] - no beds available [facility] - they do have beds available and will consider pending Medicaid, Referral faxed [facility] - they do have beds available and will consider pending Medicaid, Referral faxed [facility] - The are unable to accept pending medicaid. SW will await determination from [facility] and [facility]. JAYA Prescott
--- NOTE | 2021-07-08 15:05 | NURSING ---
Pt frequent trips to bathroom and unable to have bowel movement pt had no results from PRN Dulcolax. Dr. Pat updated and new order for Soap Suds Enema. Pt tolerated SSE and Had medium soft bowel movement.
--- NOTE | 2021-07-08 17:28 | NURSING ---
Pt BP 74/[address] Pat updated. Pt refusing to have IV started at this time to receive bolus of Fluid. Educated pt on why a Fluid bolus is needed at this time. Pt again refused to have IV started. Pt C/O of pain asked pt if he would like some pain mediation pt refused at this time. Pt wanted to return to bed at this time got pt back into bed at this time. Will continue to monitor.
--- NOTE | 2021-07-08 18:22 | NURSING ---
Pt in bed at this time sleeping awakens easily per pt will take medications later. Will continue to monitor pt.
--- NOTE | 2021-07-08 18:36 | NURSING ---
Addendum entered by Elizabeth Wilcox 07/08/21 18:47: Talked with Son Joce gave update. Original Note: Called and Left VM with Joce to give update.
[2021-07-08] MEDS: Atorvastatin Calcium 20 MG Tablet PO (20:35)
[2021-07-08] MEDS: Tamsulosin HCl 0.4 MG Capsule PO (20:35)
[2021-07-09] MEDS: oxyCODONE 5 MG Tablet 10 MG PO ×2 (02:11→05:12)
[2021-07-09 05:10] VITALS: BP 92/54; PULSE 78
[2021-07-09] MEDS: Pantoprazole Sodium 20 MG Tablet PO (05:12)
[2021-07-09] MEDS: ALPRAZolam 0.25 MG Tablet 0.125 MG PO (05:12)
[2021-07-09] MEDS: Polyethylene Glycol 3350 17 GM PACKET PO (05:12)
[2021-07-09] MEDS: Clopidogrel Bisulfate 75 MG Tablet PO (05:12)
[2021-07-09] MEDS: Senna/Docusate Sodium 1 Tablet PO (05:12)
[2021-07-09] MEDS: Nystatin Powder 15gm Bottle 1 APPLIC TOPICAL (05:13)
[2021-07-09] MEDS: Finasteride 5 MG Tablet PO (05:13)
[2021-07-09] MEDS: APIXABAN 2.5 MG TABLET PO (05:13)
[2021-07-09] MEDS: Potassium Chloride Oral Tablet 20 MEQ PO (08:24)
[2021-07-09] MEDS: Juven (unflavored) Packet 1 PACKET PO (08:24)
[2021-07-09 09:28] VITALS: BP 70/40; PULSE 64; RESP 18; O2SAT 99
--- NOTE | 2021-07-09 09:29 | NURSING ---
PT A/O X2,PT KEEPS DOSING OFF AWAKES WHEN SPOKEN TO BUT HAVE TO Q PT TWICE TO STAND UP TO GET ON TOILET. MANUAL BP 70/40. RN NOTIFIED,DR.KWOK CUMMINGS.
--- NOTE | 2021-07-09 09:55 | CASEMGMT ---
Social Work FELIX spoke with pt son Joce who states he received a phone call from [facility] who states pt does not qualify for Medicaid. FELIX explained two options are to go to a SNF private pay or return home. Joce does not believe pt can return home alone and is in agreement with private pay at SNF. Phone call to [facility] insurance and pt does have Part B therapy benefits with a $40 copay per visit. Pt would private pay for SNF and therapy could continue with the $40 per treatment copay. There is no out of network benefit, therefore pt would need to go to an in network facility. Pt son was looking in the [facility] so pt would be close to family. The following in network facilities were contacted: [facility] - beds are available, referral faxed ($299/day with 2 weeks up front) [facility] - beds are available, referral faxed [facility] - beds are available, referral faxed [facility] - beds are available, referral faxed (semi private room, 1 month upfront, $7860) SW will await determination from the above facilities. MANDY Lemons updated. JAYA Prescott
--- NOTE | 2021-07-09 10:32 | NURSING ---
dr pierce updated on pt being lethargic, low BP 70/40, HR 64. noted that coreg has been held couple days d/t decreased BP. new order to give 1/2 liter NS bolus and send UA. attempted to st cath pt and unable to insert a 12 fr cath d/t small size of urethra. will have pt void in cup when able. according to division field inspector report pt was to get NS lastnight but refused. pt willing to let us insert IV. RN ticket sales supervisor able to insert 24 guage RT FA. pt resting in bed, call light in reach. alert to self, place and time. needed reoriented to month. answers questions approp.
--- NOTE | 2021-07-09 11:19 | CASEMGMT ---
Social Work Received return call from [facility]. They are able to accept pt. Pt would have to pay one month up front prior to admission ($11,625). This facility is not in network with pt insurance, therefore will wait to hear back from in network facilities prior to presenting options to pt son. MANDY Lemons. JAYA Prescott
--- NOTE | 2021-07-09 12:00 | CASEMGMT ---
Addendum entered by Le Sexton 07/09/21 13:59: Le Sexton Discharge Sales And Marketing Associate Original Note: Spoke to [facility]. Patient was accepted. Patient insurance is in network. Cost would be 220/day and would need 1 month upfront ($6,600).
--- NOTE | 2021-07-09 12:15 | NURSING ---
spoke to nandini and son with updates regarding pt status and sending to ER
== END 2021-07-09 11:05 | disposition intermediate care facility (04) | DRG 293 ==
PROVIDERS: Admitting Provider Family Medicine Geriatric Medicine; PCP Family Medicine; Visit Provider Family Medicine Geriatric Medicine
DX: I11.0 Hypertensive heart disease with heart failure (principal); E11.9 Type 2 diabetes mellitus without complications; Z79.01 Long term (current) use of anticoagulants; I50.32 Chronic diastolic (congestive) heart failure; I48.91 Unspecified atrial fibrillation; I25.2 Old myocardial infarction; E87.6 Hypokalemia; E78.5 Hyperlipidemia, unspecified; K21.9 Gastro-esophageal reflux disease without esophagitis; I25.10 Atherosclerotic heart disease of native coronary artery without angina pectoris; N40.0 Benign prostatic hyperplasia without lower urinary tract symptoms; I89.0 Lymphedema, not elsewhere classified; M48.061 Spinal stenosis, lumbar region without neurogenic claudication; M54.16 Radiculopathy, lumbar region; I35.0 Nonrheumatic aortic (valve) stenosis; Z79.02 Long term (current) use of antithrombotics/antiplatelets; Z87.891 Personal history of nicotine dependence
CPT/HCPCS: 36415; 80048; 82962; 85025; 87426; 97110; 97116; 97162; 97166; 97530; 97535; 97802; J7040; A4216

== ENCOUNTER 2021-07-09 11:19 | Observation (INO) | payer OTHER, SELFPAY ==
[2021-07-09] VITALS (7 sets, daily range): BP systolic 96–120; BP diastolic 28–68; PULSE 67–84; RESP 12–20; TEMP 36.1–36.5; O2SAT 91–100; BMI 30.1
--- NOTE | 2021-07-09 11:23 | CM.ED ---
Addendum entered by Alice Martin 07/09/21 11:58: FELIX left voice mail for [facility] child protective services social worker. Addendum entered by Alice Martin 07/09/21 11:39: FELIX spoke to . Plan is for patient to be admitted. Alice HUGGINS Original Note: FELIX Note FELIX was contacted by Vesta Franco child protective services social worker for rehab/TCU. Patient had a change in condition. Flora, FELIX and FELIX assistant store manager operations have been working on placement for patient. [facility] has [facility] insurance. Patient previously had been accepted at [facility] but they declined this week. There are 3 in [facility] Facilities that the FELIX and FELIX assistant store manager operations are looking at for patient ADMISSION NURSE Sabra. Patient has been denied by medicaid. Patient can only return to TCU fore 1 day if he is private pay. Patient was scheduled for discharge today from TCU. If he is admitted he would benefit from a PT/OT consult. FELIX updated RN and MD Ailce HUGGINS
--- NOTE | 2021-07-09 11:32 | EKG12_ITS ---
Test Reason : Blood Pressure : / mmHG Vent. Rate : 087 BPM Atrial Rate : 076 BPM P-R Int : 000 ms QRS Dur : 106 ms QT Int : 386 ms P-R-T Axes : 000 -36 124 degrees QTc Int : 464 ms Atrial fibrillation Left axis deviation Nonspecific ST and T wave abnormality Abnormal ECG Confirmed by MANUEL HIGHTOWER, LIZ ([id number]), greeting card editor BIB CENTENO ([id number]) on 07/10/2021 9:09:19 AM Referred By: LISA Confirmed By:LIZ JACKSON MD
--- NOTE | 2021-07-09 11:33 | EX.ED.DYSGE1 ---
HPI History of Present Illness Chief Complaint: Weakness Narrative Narrative: Patient presents from the hospital rehab facility. Apparently he was due to be discharged today but was found to have significant weakness, he was unable to ambulate and was found to be hypotensive with blood pressure in the 70s as well as SPO2 of 91. Apparently he has to urinate but has not been able to yet. No noted fever or chills. Patient is denying any chest pain or shortness of breath he is agreeing to generalized weakness. [facility] Medical History Atherosclerotic heart disease of [place] coronary artery without angina pectoris Atrial fibrillation Benign essential hypertension Bilateral carotid bruits Bilateral edema of lower extremity Carotid artery stenosis CHF (congestive heart failure) Congestive heart failure (CHF) Diabetes DM type 2 (diabetes mellitus, type 2) Former smoker GERD (gastroesophageal reflux disease) History of non-ST elevation myocardial infarction (NSTEMI) (06/14/06) Hyperlipidemia Left atrial enlargement Nicotine abuse Nonrheumatic aortic (valve) stenosis Obesity Rectal bleeding SBO (small bowel obstruction) Home Medications potassium chloride 20 meq PO BID 09/11/14 [History Last Taken 06/21/21] tamsulosin 0.4 mg PO QHS 09/11/14 [History Last Taken 06/23/21] nitroglycerin 0.4 mg SUBLINGUAL Q5M PRN 10/14/14 [History Last Taken 09/02/20] clopidogrel 75 mg tablet 75 mg PO QDAY tab 08/01/17 [History Last Taken 06/24/21] Eliquis 2.5 mg PO BID 06/24/21 [History Last Taken 06/24/21] bumetanide 1 mg PO BID 06/24/21 [History Last Taken 06/21/21] carvedilol 25 mg PO BID 06/24/21 [History Last Taken 06/24/21] lisinopril 20 mg PO DAILY 06/24/21 [History Last Taken 06/21/21] acetaminophen 1,000 mg PO Q6H PRN PRN #0 tab 07/07/21 [Rx Last Taken Unknown] [id number]-sesa-[id number]-pafbpy-af-utm [Federico (with collagen)] 1 packet PO BIDCM #0 ea 07/07/21 [Rx Last Taken Unknown] atorvastatin 20 mg PO QHS #0 tab 07/07/21 [Rx Last Taken Unknown] finasteride 5 mg PO DAILY #0 tab 07/07/21 [Rx Last Taken Unknown] nystatin [Nyamyc] 1 applic TOPICAL BID #0 g 07/07/21 [Rx Last Taken Unknown] oxycodone 10 mg PO Q4H PRN PRN 3 Days #36 tab 07/07/21 [Rx Last Taken Unknown] pantoprazole 20 mg PO DAILY #0 tab 07/07/21 [Rx Last Taken Unknown] polyethylene glycol 3350 17 g PO DAILY #0 ea 07/07/21 [Rx Last Taken Unknown] sennosides-docusate sodium [Stool Softener-Stimulant Laxat] 1 tab PO BID #0 tab 07/07/21 [Rx Last Taken Unknown] Allergy/AdvReac Type Severity Reaction Status Date / Time contrast dye AdvReac Severe broke out Uncoded 07/09/21 11:31 Family History Mother CVA (cerebral vascular accident) Father CVA (cerebral vascular accident) Sister Hypertension Surgical History H/O coronary artery bypass surgery (12/01/01) History of appendectomy History of cholecystectomy History of coronary artery stent placement (12/17/08) History of right-sided carotid endarterectomy (10/2014) Social History household members: none Smoking Status: Former smoker alcohol intake: never substance use type: does not use diet: low salt caffeine: Yes Type: coffee Number of servings: 4 what type of physical activity do you participate in: none seatbelt use: always do you feel safe at home: Yes ROS ROS ED ROS Narrative Past medical history: Reviewed in the medical chart, it is quite extensive includes hypertension, hyperlipidemia, A. fib on Eliquis, CAD, BPH, CHF, kidney injury, chronic debility and multiple others. Medications: Reviewed in the chart Social history: Noncontributory Review of systems: All systems negative except as indicated General: No fever. Generalized weakness. Eyes: No visual changes ENT: No upper airway congestion, normal voice Neck: No neck pain Cardiovascular: No chest pain Respiratory: No shortness of breath or cough Gastrointestinal: No abdominal pain, nausea vomiting or diarrhea Genitourinary: Having difficulty urinating. Musculoskeletal: Denies myalgias, cannot ambulate. Skin: No rash Neurological: No focal weakness. Psych: No recent behavioral changes Hematologic: Easy bleeding and bruising EXAM Physical Exam Narrative Exam Narrative: Physical exam General: Patient appears chronically ill. He appears relatively comfortable. Head: Normocephalic, Atraumatic Eyes: Conjunctiva not pale ENT: Dry mucous membranes Neck: Supple, Nontender, No lymphadenopathy Cardiovascular: Regular rate, Regular rhythm Respiratory: No distress, CTA bilaterally Abdomen: Soft, Nontender, Nondistended normal external genitalia Back: Nontender, Normal Inspection. Negative for: CVA tenderness Extremities: Nontender, scant edema Skin: Normal color, No rash Neurological: Alert, oriented to person and place. Normal Strength, Normal Sensation Const Vital Signs: 07/09/21 11:24 07/09/21 11:29 07/09/21 12:01 Temperature 97.7 F L 97.7 F L Temperature Source Oral Oral Pulse Rate 82 82 Respiratory Rate 16 20 H Respiratory Effort Normal Respiratory Pattern Normal Blood Pressure 117/61 99/55 L Blood Pressure Mean 79 69 Pulse Ox 100 100 Oxygen Delivery Method Room Air Room Air 07/09/21 12:34 Temperature 97.0 F L Temperature Source Oral Pulse Rate 72 Respiratory Rate 12 Respiratory Effort Respiratory Pattern Blood Pressure 96/50 L Blood Pressure Mean 65 Pulse Ox 91 Oxygen Delivery Method Room Air MDM MDM MDM Narrative Medical decision making narrative: Patient is found to have prerenal azotemia, apparently he was due to be discharged from the rehab facility and they will not accept him back, I will give him IV fluids and admit him. Lab Data Labs: Laboratory Results - last 24 hr 07/09/21 07/09/21 07/09/21 11:35 11:45 11:45 WBC 14.3 H RBC 4.30 L Hgb 12.6 L Hct 38.2 L MCV 88.8 MCH 29.3 MCHC 33.0 RDW Std Deviation 47.4 H RDW Coeff of Madonna 15.2 H Plt Count 206 MPV 11.5 Immature Gran % (Auto) 1.800 H Neut % (Auto) 79.0 H Lymph % (Auto) 13.0 L Lincoln % (Auto) 5.9 Eos % (Auto) 0.1 Baso % (Auto) 0.2 Absolute Neuts (auto) 11.3 H Absolute Lymphs (auto) 1.87 Nucleated RBC % 0 Sodium 140 Potassium 5.2 H Chloride 104 Carbon Dioxide 32.0 Anion Gap 4 L BUN 105 H* Creatinine 2.17 H Estim Creat Clear Calc 22.46 Est GFR (MDRD) Af Amer 37 L Est GFR (MDRD) Non-Af 31 L BUN/Creatinine Ratio 48.4 H Glucose 133 H Lactic Acid Calcium 8.7 Total Bilirubin 0.90 AST 33 ALT 45 Alkaline Phosphatase 185 H Troponin I High Sens 58 Total Protein 5.2 L Albumin 2.2 L Globulin 3.0 Albumin/Globulin Ratio 0.7 L Urine Color Yellow Urine Clarity Clear Urine pH 7.0 Ur Specific [place] 1.005 Urine Protein Negative Urine Glucose (UA) Normal Urine Ketones 5 H Urine Occult Blood Negative Urine Nitrite Negative Urine Bilirubin Negative Urine Urobilinogen Normal Ur Leukocyte Esterase 25 H Urine RBC 0-5 SEEN Urine WBC 0-5 SEEN Ur Squamous Epith Cells 0-5 SEEN Urine Bacteria 0 SEEN Urine Mucus 0 SEEN 07/09/21 11:45 WBC RBC Hgb Hct MCV MCH MCHC RDW Std Deviation RDW Coeff of Madonna Plt Count MPV Immature Gran % (Auto) Neut % (Auto) Lymph % (Auto) [place] % (Auto) Eos % (Auto) Baso % (Auto) Absolute Neuts (auto) Absolute Lymphs (auto) Nucleated RBC % Sodium Potassium Chloride Carbon Dioxide Anion Gap BUN Creatinine Estim Creat Clear Calc Est GFR (MDRD) Af Amer Est GFR (MDRD) Non-Af BUN/Creatinine Ratio Glucose Lactic Acid 1.9 Calcium Total Bilirubin AST ALT Alkaline Phosphatase Troponin I High Sens Total Protein Albumin Globulin Albumin/Globulin Ratio Urine Color Urine Clarity Urine pH Ur Specific [place] Urine Protein Urine Glucose (UA) Urine Ketones Urine Occult Blood Urine Nitrite Urine Bilirubin Urine Urobilinogen Ur Leukocyte Esterase Urine RBC Urine WBC Ur Squamous Epith Cells Urine Bacteria Urine Mucus Radiography Diagnostic Testing: Clinical Impression(s) from Imaging Studies Chest X-Ray 07/09/21 12:10 IMPRESSION: Status post CABG. No acute abnormality is seen. Electronically Signed: Carson Ladd MD at 12:26 EST , Discharge Plan Triage Chief Complaint: Weakness ED Provider: Allan Lawrence Dx/Rx/DC Orders Clinical Impression: Acute kidney injury, Weakness Prescriptions: No Action clopidogrel 75 mg tablet 75 mg PO QDAY RF: 0 potassium chloride 20 MEQ tablet 20 meq PO BID RF: 0 tamsulosin 0.4 MG capsule,extended release 24hr 0.4 mg PO QHS RF: 0 nitroglycerin 0.4 MG tablet 0.4 mg SUBLINGUAL Q5M PRN (Reason: Chest Pain) RF: 0 carvedilol 25 MG tablet 25 mg PO BID RF: 0 lisinopril 20 MG tablet 20 mg PO DAILY RF: 0 bumetanide 0.5 mg tablet 1 mg PO BID RF: 0 Eliquis 2.5 mg tablet 2.5 mg PO BID RF: 0 atorvastatin 20 mg Tablet 20 mg PO QHS Qty: 0 RF: 0 acetaminophen 500 mg Tablet 1,000 mg PO Q6H PRN PRN (Reason: Pain Score 1-10) Qty: 0 RF: 0 pantoprazole 20 mg Tablet,Delayed Release (Dr/Ec) 20 mg PO DAILY Qty: 0 RF: 0 finasteride 5 mg Tablet 5 mg PO DAILY Qty: 0 RF: 0 Federico (with collagen) 7-7-1.5 gram Powder In Packet 1 packet PO BIDCM Qty: 0 RF: 0 polyethylene glycol 3350 17 gram Powder In Packet 17 g PO DAILY Qty: 0 RF: 0 nystatin [Nyamyc] 100,000 unit/gram Powder 1 applic topical BID Qty: 0 RF: 0 sennosides-docusate sodium [Stool Softener-Stimulant Laxat] 8.6-50 mg Tablet 1 tab PO BID Qty: 0 RF: 0 oxycodone 5 mg Tablet 10 mg PO Q4H PRN PRN (Reason: Pain Score 6-10) 3 Days Qty: 36 RF: 0 Primary Care Provider: Tommy Kaur Referrals: Tommy Kaur MD [Primary Care Provider] - Disposition Disposition: [facility]
[2021-07-09 12:09] LABS: Bacteria 0 SEEN /hpf (None Seen); Mucous, Urine 0 SEEN /hpf (<or=2+)
--- NOTE | 2021-07-09 12:10 | RAD_ITS ---
STUDY: X-RAY CHEST REASON FOR EXAM: Male, 86 years old. Weakness TECHNIQUE: Single AP portable view of the chest. COMPARISON: Comparison is made with prior study dated 06/22/2021. FINDINGS: EKG electrodes are seen. The lungs are clear and expanded. There is no demonstrated pleural abnormality. Sternal cerclage wires and vascular clips are present from a prior sternotomy and coronary artery bypass graft procedure (CABG). Normal mediastinum and sergio. Normal visualized pulmonary arteries. There is atherosclerotic calcification of the aortic arch with tortuosity. Normal visualized thoracic spine. There is degenerative osteoarthritis of the bilateral shoulders. There is no demonstrated abnormality of the visualized soft tissue structures of the upper abdomen. RAD/Chest 1 View (Portable) IMPRESSION: Status post CABG. No acute abnormality is seen. Electronically Signed: Carson Ladd MD at 12:26 EST ,
[2021-07-09 12:11] LABS: Color, Urine Yellow (Yellow); Glucose, Dipstick Normal (Normal); Ketone-Dipstick 5 mg/dl (Negative); Leukocyte Esterase-Dipstick 25 /ul (Negative); Nitrite-Dipstick Negative (Negative); Occult Blood-Urine Negative /ul (Negative); Protein-Dipstick Negative (Negative); Specific Gravity, Urine 1.005 (1.002-1.030); Urine Bilirubin Dipstick Negative (Negative); Urine Clarity Clear (Clear); Urine Urobilinogen Normal (Normal)
[2021-07-09 12:15] LABS: Absolute Lymphocyte Count 1.87 X10^3/uL (0.83-4.51); Absolute Neutrophil Count 11.3 X10^3/uL (2.0-7.7); Basophil# 0.03 X10^3/uL; Basophil% 0.2 % (0-1); Eosinophil# 0.02 X10^3/uL; Eosinophils% 0.1 % (0-5); Hematocrit 38.2 % (40-54); Hemoglobin 12.6 g/dL (13.0-16.5); Lymphocyte # 1.87 X10^3/ul (0.83-4.51); Mean Corpuscular Hgb 29.3 pg (27.0-32.0); Mean Corpuscular Volume 88.8 fL (80-94); Mean Platelet Vol. 11.5 fl (6.2-12.0); Monocyte# 0.85 X10^3/uL; Monocyte% 5.9 % (0-10); NRBC Flagged by Analyzer 0 % (0-5); Platelet Count 206 K/mm3 (150-450); RBC Distribution Width CV 15.2 % (11.6-14.6); RBC Distribution Width SD 47.4 fl (35.1-43.9); White Blood Count 14.3 K/mm3 (4.4-11.0)
[2021-07-09 12:18] LABS: Red Blood Cells-Urine 0-5 SEEN /hpf (0-5); Squamous Epithelial Cells - UA 0-5 SEEN /hpf (0-5); White Blood Cells 0-5 SEEN /hpf (0-5)
[2021-07-09 12:41] LABS: International Normalized Ratio 1.6; Prothrombin Time (Protime)PT. 18.4 SECONDS (11.7-14.9)
[2021-07-09] MEDS: 0.9% Normal Saline 1,000 ML 1000 ML IV (12:41)
[2021-07-09 12:42] LABS: Partial Thromboplast Time 31.6 Seconds (24.1-36.2)
[2021-07-09 12:45] LABS: Lactic Acid 1.9 mmol/L (0.4-1.9)
[2021-07-09 12:49] LABS: ALB/GLOB Ratio 0.7 RATIO (0.9-2.4); AST(SGOT) 33 U/L (15-37); Alanine Aminotransfer ALT/SGPT 45 U/L (16-61); Albumin, Serum 2.2 g/dL (3.2-5.0); Alkaline Phosphatase 185 U/L (45-117); Anion Gap 4 (5-15); BUN 105 mg/dL (7-18); BUN/Creat Ratio 48.4 RATIO (10-20); Calcium,Total 8.7 mg/dL (8.5-10.1); Chloride 104 mmol/L (98-107); Creatinine, Serum 2.17 mg/dL (0.70-1.30); EST Glomerular Filtration Rate 31 mL/min (>60); Est Glom Filt Rate - Afr Amer 37 mL/min (>60); Estimated Creatinine Clearance 22.46 ml/min; Glucose 133 mg/dL (74-106); Potassium 5.2 mmol/L (3.5-5.1); Protein, Total 5.2 g/dL (6.4-8.2); Sodium Level 140 mmol/L (136-145); Troponin-I HS 58 pg/mL (3.0-78.0)
--- NOTE | 2021-07-09 12:51 | CM.ED ---
FELIX Note Per FELIX Feng patient accepted at [facility] however due to patient's current medical concerns the MD is currently doing a complete workup to determine patient's medical condition. SW will continue to follow.
--- NOTE | 2021-07-09 13:30 | HP.PCM.HOS_ITS ---
HPI - General General Date of Admission: 07/09/21 Date of Service: 07/09/21 Chief Complaint: hypotension HPI Narrative BLANCA RODRIGUEZ, is a 86 M who presents presents with hypotension. Patient was in the transitional care unit and was noted to be hypotensive. Patient was sent to the ER and patient did receive IV fluids and his blood pressure did improve. His blood pressure initially was 70/40 but is currently over 120/63. Patient cr eatinine was elevated at 2.17 it was 1.38 from 28th. Patient is a rather poor historian unable provide any significant history in regards to with pain transpiring with him over the past few days. The emergency room once they got him stabilized attempted to send him back to the transitional care unit but was declined. I spoke with the transitional care unit and spoke with the rn social services, Vesta, who said that they have been trying to discharge patient over the past few days and have not found an accepting facility. When the patient was sent to the emergency room the plan was for the emergency room to find a facility even though one had not been found for several days in the transitional care unit. It essentially inform me that once he breached the doors of the of TCU and given that he is exhausted his Medicare days that they would not accept him back. I tried to discuss with the community assistant, Nasreen, but she was the middle of the meeting so I did not disturb her. [facility] Medical History Atherosclerotic heart disease of [place] coronary artery without angina pectoris Atrial fibrillation Benign essential hypertension Bilateral carotid bruits Bilateral edema of lower extremity Carotid artery stenosis CHF (congestive heart failure) Congestive heart failure (CHF) Diabetes DM type 2 (diabetes mellitus, type 2) Former smoker GERD (gastroesophageal reflux disease) History of non-ST elevation myocardial infarction (NSTEMI) (06/14/06) Hyperlipidemia Left atrial enlargement Nicotine abuse Nonrheumatic aortic (valve) stenosis Obesity Rectal bleeding SBO (small bowel obstruction) Home Medications potassium chloride 20 meq PO BID 09/11/14 [History Last Taken 06/21/21] tamsulosin 0.4 mg PO QHS 09/11/14 [History Last Taken 06/23/21] nitroglycerin 0.4 mg SUBLINGUAL Q5M PRN 10/14/14 [History Last Taken 09/02/20] clopidogrel 75 mg tablet 75 mg PO QDAY tab 08/01/17 [History Last Taken 06/24/21] Eliquis 2.5 mg PO BID 06/24/21 [History Last Taken 06/24/21] bumetanide 1 mg PO BID 06/24/21 [History Last Taken 06/21/21] carvedilol 25 mg PO BID 06/24/21 [History Last Taken 06/24/21] lisinopril 20 mg PO DAILY 06/24/21 [History Last Taken 06/21/21] acetaminophen 1,000 mg PO Q6H PRN PRN #0 tab 07/07/21 [Rx Last Taken Unknown] jwwlq-vlno-QwZMK-wmdeik-yx-uxw [Federico (with collagen)] 1 packet PO BIDCM #0 ea 07/07/21 [Rx Last Taken Unknown] atorvastatin 20 mg PO QHS #0 tab 07/07/21 [Rx Last Taken Unknown] finasteride 5 mg PO DAILY #0 tab 07/07/21 [Rx Last Taken Unknown] nystatin [Nyamyc] 1 applic TOPICAL BID #0 g 07/07/21 [Rx Last Taken Unknown] oxycodone 10 mg PO Q4H PRN PRN 3 Days #36 tab 07/07/21 [Rx Last Taken Unknown] pantoprazole 20 mg PO DAILY #0 tab 07/07/21 [Rx Last Taken Unknown] polyethylene glycol 3350 17 g PO DAILY #0 ea 07/07/21 [Rx Last Taken Unknown] sennosides-docusate sodium [Stool Softener-Stimulant Laxat] 1 tab PO BID #0 tab 07/07/21 [Rx Last Taken Unknown] Allergy/AdvReac Type Severity Reaction Status Date / Time contrast dye AdvReac Severe broke out Uncoded 07/09/21 11:31 Family History Mother CVA (cerebral vascular accident) Father CVA (cerebral vascular accident) Sister Hypertension Surgical History H/O coronary artery bypass surgery (12/01/01) History of appendectomy History of cholecystectomy History of coronary artery stent placement (12/17/08) History of right-sided carotid endarterectomy (10/2014) Social History household members: none Smoking Status: Former smoker alcohol intake: never substance use type: does not use diet: low salt caffeine: Yes Type: coffee Number of servings: 4 what type of physical activity do you participate in: none seatbelt use: always do you feel safe at home: Yes ROS ROS Narrative Is lower extremity edema which is chronic. All review of systems were negative except as mentioned above in the history of present illness and the other review of systems. Vital Signs Vital Signs Vital Signs: 07/09/21 11:24 07/09/21 11:29 07/09/21 12:01 Temperature 36.5 C L 36.5 C L Temperature Source Oral Oral Pulse Rate 82 82 Respiratory Rate 16 20 H Respiratory Effort Normal Respiratory Pattern Normal Blood Pressure 117/61 99/55 L Blood Pressure Mean 79 69 Pulse Ox 100 100 Oxygen Delivery Method Room Air Room Air 07/09/21 12:34 07/09/21 13:14 Temperature 36.1 C L 36.3 C L Temperature Source Oral Temporal Pulse Rate 72 80 Respiratory Rate 12 17 Respiratory Effort Respiratory Pattern Blood Pressure 96/50 L 120/63 Blood Pressure Mean 65 82 Pulse Ox 91 97 Oxygen Delivery Method Room Air Room Air Weight Weight: 84.7 kg Body Mass Index (BMI) 30.1 Physical Exam Const alert and no apparent distress General Appearance: cooperative HEENT normocephalic, head/scalp atraumatic, hearing grossly normal bilaterally and moist oral mucous membranes HEENT Narrative: Mucous membranes dry Resp normal respiratory effort, no retractions, no use of accessory muscles and clear to auscultation bilaterally Cardio regular rate, regular rhythm, S1 normal heart sound and S2 normal heart sound GI normal to inspection, nondistended, normoactive bowel sounds, soft to palpation, non-tender and non-distended Extremity Extremity Narrative: Legs wrapped, did not remove. Neuro Sensorium / Orientation: awake and alert Results Lab / Micro Data Attestation: I reviewed the patient's lab results. Result Diagrams: 07/09/21 11:45 07/09/21 11:45 Labs: Laboratory Results - last 24 hr 07/09/21 11:35: Urine Color Yellow, Urine Clarity Clear, Urine pH 7.0, Ur Specific [place] 1.005, Urine Protein Negative, Urine Glucose (UA) Normal, Urine Ketones 5 H, Urine Occult Blood Negative, Urine Nitrite Negative, Urine Bilirubin Negative, Urine Urobilinogen Normal, Ur Leukocyte Esterase 25 H, Urine RBC 0-5 SEEN, Urine WBC 0-5 SEEN, Ur Squamous Epith Cells 0-5 SEEN, Urine Bacteria 0 SEEN, Urine Mucus 0 SEEN 07/09/21 11:45: WBC 14.3 H, RBC 4.30 L, Hgb 12.6 L, Hct 38.2 L, MCV 88.8, MCH 29.3, MCHC 33.0, RDW Std Deviation 47.4 H, RDW Coeff of Madonna 15.2 H, Plt Count 206, MPV 11.5, Immature Gran % (Auto) 1.800 H, Neut % (Auto) 79.0 H, Lymph % (Auto) 13.0 L, [place]y % (Auto) 5.9, Eos % (Auto) 0.1, Baso % (Auto) 0.2, Absolute Neuts (auto) 11.3 H, Absolute Lymphs (auto) 1.87, Nucleated RBC % 0 07/09/21 11:45: PT 18.4 H, INR 1.6, APTT 31.6 07/09/21 11:45: Sodium 140, Potassium 5.2 H, Chloride 104, Carbon Dioxide 32.0, Anion Gap 4 L, BUN 105 H*, Creatinine 2.17 H, Estim Creat Clear Calc 22.46, Est GFR (MDRD) Af Amer 37 L, Est GFR (MDRD) Non-Af 31 L, BUN/Creatinine Ratio 48.4 H , Glucose 133 H, Calcium 8.7, Total Bilirubin 0.90, AST 33, ALT 45, Alkaline Phosphatase 185 H, Troponin I High Sens 58, Total Protein 5.2 L, Albumin 2.2 L, Globulin 3.0, Albumin/Globulin Ratio 0.7 L 07/09/21 11:45: Lactic Acid 1.9 EKG Initial EKG: Attestation: I personally reviewed and interpreted this EKG as follows: Prior EKG tracings: available for review EKG Rhythm Intrepretation: Atrial Fibrillation Radiology Impression Chest X-Ray 07/09/21 12:10 IMPRESSION: Status post CABG. No acute abnormality is seen. Electronically Signed: Carson Ladd MD at 12:26 EST , Assessment & Plan Assessment/Plan (1) Acute kidney injury: (2) Hypotension: QUALIFIERS: Hypotension type: hypotension due to hypovolemia Qualified Code(s): I95.89 - Other hypotension; E86.1 - Hypovolemia (3) Debility: PLAN: 1. Hypotension Likely iatrogenic due to his Bumex, lisinopril and possibly carvedilol Hold Bumex and lisinopril Cut his dose of carvedilol from 25-12-1/2 twice daily with hold parameters Currently resolved with IV fluids 2. Acute kidney injury Creatinine 2.17 up from 1.38 on Clinically dry speech did receive IV fluids we will give him another liter on the floor. Be very cautious about IV fluids given his history of CHF 3. Chronic heart failure preserved ejection fraction Compensated this time EF 60% from 2D echocardiogram from 09/03/2020. Complicated by moderate aortic stenosis Bumex and lisinopril currently being held for above 4. Debility Patient was transferred there on the and has exhausted his Medicare days. Plan from the TCU's perspective as described to me was to transfer him to another facility but they had not yet found 1. Since patient was sent to the emergency room the TCU has informing that there is nothing further that the will do for the patient at this time. And he has essentially been discharged from the transitional care unit. PT OT evaluate and treat Case management to work on disposition as obviously the patient cannot return home given his profound weakness 5. Atrial fibrillation, chronic Continue with apixaban 6. VTE prophylaxis not indicated given ongoing anticoagulation 7. CODE STATUS: Reviewed previous documentation. Patient is DNR Comfort Care arrest no intubation. Charges/Coding Visit Charges OBSV E&M: 70193 Initial observation care L2
--- NOTE | 2021-07-09 14:09 | CASEMGMT ---
Social Work SW received return call from [facility] and they are able to accept pt. Pt will be required to private pay upfront for 1 month stay. Current Plan: Pt has been accepted as a private pay resident at the following facilities: 1. [facility]: ($6600 1 month paid up front) In network with insurance Admissions [phone] 2 [facility]: ($7860 1 month paid up front) In network with insurance. Carolyn in Admissions [phone] 3. [facility]: ($11,625 1 month paid up front) out of network with insurance. Elvia in Admissions [phone] Waiting on responses on referrals sent to: 1. [facility] [phone] (2 weeks paid up front $4186) 2. [facility] [phone] (1 month paid up front $12,240) 3. 2 Voicemails left with [facility] with no return call on bed availability (no referral sent) 4. [facility] [phone]. Referral sent, this is an out of network facility Update provided to [employer] Main Inspector, JAYA Yang
[2021-07-09] MEDS: Juven (unflavored) Packet 1 PACKET PO (16:24)
[2021-07-09] MEDS: 0.9% Normal Saline 1,000 ML 150 ML IV (16:27)
[2021-07-09] MEDS: Nystatin Powder 15gm Bottle 1 APPLIC TOPICAL (16:51)
[2021-07-09 17:11] LABS: Bedside Glucose 116 mg/dL (74-106)
--- NOTE | 2021-07-09 18:38 | CM.ED ---
FELIX updated the MD that acute social work manager had spoken to acute social work manager, Ping, and that the SW had secured placement for patient at SNF at [facility] today. MD was advised that patient could be discharged to SNF today but MD said unless there is a medical reason to admit him. FELIX received call from Kojo Feng, who indicated that per the patient's chart patient has medical conditions. FELIX and Ping agreed that if patient has medical issues and needs to come in for acute hospitalization that is a priority as to sending him to SNF. FELIX was advised by Pepper steward/stewardess second that the patient was getting work up due to his current medical issues. FELIX reviewed status update and patient is being admitted to acute unit. Plan: Admit to acute with subsequent placement at [facility] Alice HUGGINS
[2021-07-09] MEDS: Atorvastatin Calcium 20 MG Tablet PO (23:53)
[2021-07-09] MEDS: Senna/Docusate Sodium 1 Tablet PO (23:53)
[2021-07-09] MEDS: APIXABAN 2.5 MG TABLET PO (23:54)
[2021-07-09] MEDS: Tamsulosin HCl 0.4 MG Capsule PO (23:54)
[2021-07-09] MEDS: 0.9% Saline Lock 10 ML Syringe IV (23:56)
[2021-07-10 02:40] VITALS: BP 121/48; PULSE 70; RESP 18; TEMP 36.2; O2SAT 95
[2021-07-10] MEDS: Acetaminophen 325 MG Tablet 650 MG PO (02:40)
[2021-07-10 05:49] LABS: Anion Gap 5 (5-15); BUN 89 mg/dL (7-18); Chloride 111 mmol/L (98-107); Creatinine, Serum 1.59 mg/dL (0.70-1.30); EST Glomerular Filtration Rate 44 mL/min (>60); Est Glom Filt Rate - Afr Amer 53 mL/min (>60); Estimated Creatinine Clearance 30.65 ml/min; Glucose 87 mg/dL (74-106); Potassium 4.4 mmol/L (3.5-5.1); Sodium Level 145 mmol/L (136-145)
[2021-07-10 08:40] VITALS: BP 151/100; PULSE 66; RESP 18; TEMP 36.4; O2SAT 100
[2021-07-10] MEDS: Finasteride 5 MG Tablet PO (08:59)
[2021-07-10] MEDS: Carvedilol 12.5 MG Tablet PO (08:59)
[2021-07-10] MEDS: Nystatin Powder 15gm Bottle 1 APPLIC TOPICAL (08:59)
[2021-07-10] MEDS: Polyethylene Glycol 3350 17 GM PACKET PO (08:59)
[2021-07-10] MEDS: APIXABAN 2.5 MG TABLET PO (08:59)
[2021-07-10] MEDS: Juven (unflavored) Packet 1 PACKET PO (08:59)
[2021-07-10] MEDS: Senna/Docusate Sodium 1 Tablet PO (08:59)
[2021-07-10] MEDS: Pantoprazole Sodium 20 MG Tablet PO (08:59)
[2021-07-10] MEDS: Clopidogrel Bisulfate 75 MG Tablet PO (09:01)
--- NOTE | 2021-07-10 09:54 | TREXTCAR_ITS ---
Diet 07/09/21 15:54 Diet: Cardiac - Heart Healthy Food consistency:: Regular Liquid Consistency:: Regular/Thin Routine Orders/Code Status Routine Lab Work: CBC (within 3 days) and BMP (within 3 days) Code Status: DNRCC-A Wound(s) knuckle to rt pointer finger: Wound Type: Abrasion Rt buttock: Wound Type: Pressure Injury Lt buttock: Wound Type: Pressure Injury Lt 2nd toe: Wound Type: Abrasion LLE: Wound Type: Neuropathic/Diabetic Foot Ulcer RLE: Wound Type: Pressure Injury Rt Elbow: Wound Type: Pressure Injury Lt tempal area: Wound Type: Abrasion Rt foot -Anterior: Wound Type: Surgical Incision Therapies Weight Bearing: Weight bearing as tolerated Extremity Affected:: Bilateral Lower Physical Therapy: Eval and Treat Occupational Therapy: Eval and Treat Speech Therapy: Wound RN Problem/Diagnosis (1) Acute kidney injury: Status: Acute (2) Hypotension: Status: Acute (3) Debility: Status: Acute Allergies/Procedures Done in Hospital Allergies contrast dye Adverse Reaction (Severe, Uncoded 07/09/21 11:31) broke out Procedures: None Type of Care/Length of Stay Estimated LOS: Convalescent Care Less Than 30 days Type of Care Needed: Skilled Rehab Potential: Good Prognosis: Good Additional Orders/Day of Discharge Day of Discharge: 07/10/21 Discharge Plan Admission Admit Date/Time: 07/09/21 13:25 Primary Reason for Your Visit: Hypotension Attending Provider: Lisette Cordero Primary Care Provider: Tommy Kaur Discharge Orders/Prescriptions Prescriptions: New carvedilol 12.5 mg Tablet 12.5 mg PO BID Qty: 0 RF: 0 Glucerna 1.2 Richard 0.06-1.2 gram-kcal/mL Liquid 120 ml PO 4X/DAY 30 Days Qty: 5688 RF: 0 Continued clopidogrel 75 mg tablet 75 mg PO QDAY RF: 0 tamsulosin 0.4 MG capsule,extended release 24hr 0.4 mg PO QHS RF: 0 nitroglycerin 0.4 MG tablet 0.4 mg SUBLINGUAL Q5M PRN (Reason: Chest Pain) RF: 0 Eliquis 2.5 mg tablet 2.5 mg PO BID RF: 0 atorvastatin 20 mg Tablet 20 mg PO QHS Qty: 0 RF: 0 acetaminophen 500 mg Tablet 1,000 mg PO Q6H PRN PRN (Reason: Pain Score 1-10) Qty: 0 RF: 0 pantoprazole 20 mg Tablet,Delayed Release (Dr/Ec) 20 mg PO DAILY Qty: 0 RF: 0 finasteride 5 mg Tablet 5 mg PO DAILY Qty: 0 RF: 0 Federico (with collagen) 7-7-1.5 gram Powder In Packet 1 packet PO BIDCM Qty: 0 RF: 0 polyethylene glycol 3350 17 gram Powder In Packet 17 g PO DAILY Qty: 0 RF: 0 nystatin [Nyamyc] 100,000 unit/gram Powder 1 applic topical BID Qty: 0 RF: 0 sennosides-docusate sodium [Stool Softener-Stimulant Laxat] 8.6-50 mg Tablet 1 tab PO BID Qty: 0 RF: 0 bisacodyl 5 mg Tablet 10 mg PO DAILY PRN (Reason: Constipation) RF: 0 Discontinued potassium chloride 20 MEQ tablet 20 meq PO BID RF: 0 carvedilol 25 MG tablet 25 mg PO BID RF: 0 lisinopril 20 MG tablet 20 mg PO DAILY RF: 0 bumetanide 0.5 mg tablet 1 mg PO BID RF: 0 oxycodone 5 mg Tablet 10 mg PO Q4H PRN PRN (Reason: Pain Score 6-10) 3 Days Qty: 36 RF: 0 alprazolam 0.25 mg Tablet 0.125 mg PO BID RF: 0 Referrals / Follow Up: Avtar Mcdaniels MD [STAFF PHYSICIAN] - Within 2 Weeks Tommy Kaur MD [Primary Care Provider] - Within 2 Weeks Disposition Disposition (needs filled in before D/C Order can be placed[facility]
--- NOTE | 2021-07-10 10:12 | CASEMGMT ---
Social Work Note Pt to discharge to SNF today. FELIX placed a call to Kim to speak to admissions. Tina in admissions is not available at this time. FELIX left direct number for Tina to call this worker back. Hodan Brantley INTERNET PROJECT MANAGER, ASSEMBLIES AND INSTALLATIONS INSPECTOR
--- NOTE | 2021-07-10 10:30 | CASEMGMT ---
Social Work Note FELIX received call from Tina at [facility]. Tina states she is aware that pt has been accepted and pt will be coming private pay. Tina states she is also aware that they can bill pt's part B plan for therapy and pt will need to pay private pay for room and board. Tina states they require month up front private pay and they will need the check today or over the weekend. Tina states if they cannot get the check today or over the weekend, pt will not need to be at [facility] until Tuesday. FELIX asked Tina if she has reached out to pt's son to discuss financials and Tina states she has not, but can reach out to pt's son Joce. FELIX asked Tina if she wanted to try and get spa receptionist under [facility] since pt is now admitted to [facility]. Tina states she has already reached out to pt's insurance and they have already told her that they will not skill pt for SNF. Pt will need to admit private pay. FELIX discussed case with [facility]. The only two SNF that they found that would take pt private pay and that are in network with [facility] is [facility] and [facility]. FELIX placed a call to pt's son Joce and introduced self and role at [facility]. FELIX informed Joce that pt is medically ready for discharge and two SNF have accepted pt. FELIX informed Joce that the two SNF that have accepted pt are [facility] in [facility]) and [facility] in [place]. Joce states that he just got off the phone with [facility] and is aware of private pay costs. Joce asked about Medicare Ratings for both SNF and month up front costs. FELIX reviewed Medicare Ratings for both SNF (both are three stars) and reviewed private pay costs of each facility. (See previous notes for private pay costs). Joce states that [facility] will be ok for pt and the location is good for pt's [facility] Mancuso. Joce asked that this worker speak with pt and also ask pt where his check book is. Joce states that he could be at [facility] tonight but states that it wouldn't be till about 9:00pm or later though. FELIX then received another call from Joce stating he spoke with his MICKEY Jamee who states she can go to pt's house to get check book if needed and can also be at SNF today to provide check. Joce states that this worker can call Jamee as well. SW in to speak with pt. SW introduced self and role at [facility]. Pt is alert and orientated x3. FELIX spoke with pt about SNF and provided the two options of [facility] or [facility] in [place]. Pt agreeable to [facility]. SW explained that it will be private pay and pt will need to write a check. Pt states his check book is at home on the kitchen table near the [facility]. SW informed pt that pt will discharge to [facility] today. Pt states understanding. SW also informed pt that this worker will update Joce and Jamee and pt states understanding. FELIX placed a call to pt's DIL Jamee and introduced self and role at [facility]. Jamee states that she is on her way to [place]. SW informed Jamee that pt is stating his check book is on kitchen table [facility]. Jamee states she knows exactly where it is at. FELIX informed Jamee that she will need to get check book, and have sign check and then will need to take check to [facility]. Jamee asked if she could just bring check book to [facility] and then pt can take check book with him to SNF. FELIX informed Jamee that this worker will call Kim to see which they prefer. FELIX placed a call to Kim and spoke with Tina. Tina states they would prefer for Jamee to get pt to sign check and then have Jamee bring check straight to SNF. FELIX placed a call back to Jamee and updated her that Kim prefers for her to get pt to sign check and then take check directly to SNF. Jamee states she will be at [facility] around 1:30-2:00pm and will bring check book for pt and then will take check back to [facility]. FELIX placed a call to Kim and spoke with Tina and updated her that Jamee will be at [facility] to get pt to sign check and then she will take check back to [facility]. Tina states understanding. Plan: [facility] skilled today under Private Pay Hodan Brantley MSW, INTERNAL RECRUITER
[2021-07-10] MEDS: Acetaminophen 500 MG Tablet 1000 MG PO (12:39)
--- NOTE | 2021-07-10 13:06 | DS.PCM_ITS ---
Providers Date of Admission: 07/09/21 Date of Discharge: 07/10/21 Primary Care Physician: Dr. Tommy Kaur MD Reason For Visit: HYPOTENSION Diagnosis Discharge Diagnosis (1) Acute kidney injury: Status: Resolved Code(s): N17.9 - Acute kidney failure, unspecified (2) Hypotension: Status: Resolved Code(s): I95.9 - Hypotension, unspecified Qualifiers: Hypotension type: hypotension due to hypovolemia Qualified Code(s): I95.89 - Other hypotension; E86.1 - Hypovolemia (3) Debility: Status: Acute Code(s): R53.81 - Other malaise Medications at Discharge Home Medications tamsulosin 0.4 mg PO QHS 09/11/14 nitroglycerin 0.4 mg SUBLINGUAL Q5M PRN 10/14/14 clopidogrel 75 mg tablet 75 mg PO QDAY tab 08/01/17 Eliquis 2.5 mg PO BID 06/24/21 Federico (with collagen) 1 packet PO BIDCM #0 ea 07/07/21 acetaminophen 1,000 mg PO Q6H PRN PRN #0 tab 07/07/21 atorvastatin 20 mg PO QHS #0 tab 07/07/21 finasteride 5 mg PO DAILY #0 tab 07/07/21 nystatin [Nyamyc] 1 applic TOPICAL BID #0 g 07/07/21 pantoprazole 20 mg PO DAILY #0 tab 07/07/21 polyethylene glycol 3350 17 g PO DAILY #0 ea 07/07/21 sennosides-docusate sodium [Stool Softener-Stimulant Laxat] 1 tab PO BID #0 tab 07/07/21 bisacodyl 10 mg PO DAILY PRN 07/09/21 carvedilol 12.5 mg PO BID #0 tab 07/10/21 nut.tx.gluc intol,lf,soy-fiber [Glucerna 1.2 Richard] 120 ml PO 4X/DAY 30 Days #5688 ml 07/10/21 Hospital Course Operations None Procedures None Summary of Care Provided Minutes Spent on Discharge: 40 Hospital Course: 86-year-old male with multiple comorbidities who [facility] for acute on chronic diastolic CHF, YOLIS on CKD, UTI. Patient had episode of hypotension. He was sent to the ED. He was found to have YOLIS on CKD. He was found to have run out of days in TCU. He was admitted to the [facility] floor and monitored overnight. No acute events. His hypotension was resolved. His YOLIS was back to baseline. Patient was accepted at [facility]. On the day of discharge, patient examined. He denied any new complaints. Physical Exam Narrative Physical exam: General: Alert, Oriented x3, Cooperative, No apparent distress, Well developed HEENT: Atraumatic Oral: Moist Mucosa Neck: Supple Lungs: Diminished to auscultation Cardiovascular: HS I+II, regular, no murmurs Abdomen: Bowel Sounds Present, Soft, Non Tender Extremities: Bilateral leg edema, +1-2 Skin: No rashes, No breakdown Neurological: Grossly intact Psych/Mental Status: Appropriate Weight / BMI Weight Weight: 84.7 kg Body Mass Index (BMI) 30.1 ABG / Lab / Microbiology Data Result Diagrams: 07/09/21 11:45 07/10/21 04:54 Laboratory: Laboratory Results - last 24 hr 07/09/21 11:45: PT 18.4 H, INR 1.6, APTT 31.6 07/09/21 16:30: POC Glucose 116 H 07/10/21 04:54: Sodium 145, Potassium 4.4, Chloride 111 H, Carbon Dioxide 29.0, Anion Gap 5, BUN 89 H, Creatinine 1.59 H, Estim Creat Clear Calc 30.65, Est GFR (MDRD) Af Amer 53 L, Est GFR (MDRD) Non-Af 44 L, BUN/Creatinine Ratio 56.0 H, Glucose 87, Calcium 8.0 L D/C Instructions Discharge Diet: No restrictions Meaningful Use Info Meaningful Use Diagnoses (Choose all that apply): None applicable Discharge Plan Admission Admit Date/Time: 07/09/21 13:25 Primary Reason for Your Visit: Hypotension Attending Provider: Lisette Cordero Primary Care Provider: Tommy Kaur Discharge Orders/Prescriptions Prescriptions: New carvedilol 12.5 mg Tablet 12.5 mg PO BID Qty: 0 RF: 0 Glucerna 1.2 Richard 0.06-1.2 gram-kcal/mL Liquid 120 ml PO 4X/DAY 30 Days Qty: 5688 RF: 0 Continued clopidogrel 75 mg tablet 75 mg PO QDAY RF: 0 tamsulosin 0.4 MG capsule,extended release 24hr 0.4 mg PO QHS RF: 0 nitroglycerin 0.4 MG tablet 0.4 mg SUBLINGUAL Q5M PRN (Reason: Chest Pain) RF: 0 Eliquis 2.5 mg tablet 2.5 mg PO BID RF: 0 atorvastatin 20 mg Tablet 20 mg PO QHS Qty: 0 RF: 0 acetaminophen 500 mg Tablet 1,000 mg PO Q6H PRN PRN (Reason: Pain Score 1-10) Qty: 0 RF: 0 pantoprazole 20 mg Tablet,Delayed Release (Dr/Ec) 20 mg PO DAILY Qty: 0 RF: 0 finasteride 5 mg Tablet 5 mg PO DAILY Qty: 0 RF: 0 Federico (with collagen) 7-7-1.5 gram Powder In Packet 1 packet PO BIDCM Qty: 0 RF: 0 polyethylene glycol 3350 17 gram Powder In Packet 17 g PO DAILY Qty: 0 RF: 0 nystatin [Nyamyc] 100,000 unit/gram Powder 1 applic topical BID Qty: 0 RF: 0 sennosides-docusate sodium [Stool Softener-Stimulant Laxat] 8.6-50 mg Tablet 1 tab PO BID Qty: 0 RF: 0 bisacodyl 5 mg Tablet 10 mg PO DAILY PRN (Reason: Constipation) RF: 0 Discontinued potassium chloride 20 MEQ tablet 20 meq PO BID RF: 0 carvedilol 25 MG tablet 25 mg PO BID RF: 0 lisinopril 20 MG tablet 20 mg PO DAILY RF: 0 bumetanide 0.5 mg tablet 1 mg PO BID RF: 0 oxycodone 5 mg Tablet 10 mg PO Q4H PRN PRN (Reason: Pain Score 6-10) 3 Days Qty: 36 RF: 0 alprazolam 0.25 mg Tablet 0.125 mg PO BID RF: 0 Referrals / Follow Up: Avtar Mcdaniels MD [STAFF PHYSICIAN] - Within 2 Weeks Tommy Kaur MD [Primary Care Provider] - Within 2 Weeks Disposition Disposition (needs filled in before D/C Order can be placed): Care Home Facility Charges/Coding Visit Charges OBSV E&M: 90967 Observation care discharge
--- NOTE | 2021-07-10 13:30 | CASEMGMT ---
Social Work Note FELIX updated that Jamee is at [facility], requesting to speak to this worker. SW in to speak with Jamee and pt. Pt has check written. Jamee states she is able to leave [facility] now and take check to [facility]. FELIX updated physician, pt can discharge to SNF today. Plan: [facility] skilled today Hodan Brantley FOOD STOREROOM CLERK, SENIOR LABEL SPECIALIST
[2021-07-10 15:00] VITALS: BP 114/57; PULSE 72; RESP 18; TEMP 36.7; O2SAT 97
--- NOTE | 2021-07-10 16:30 | CASEMGMT ---
Social Work Note FELIX completed PAS/RR in [facility]. FELIX faxed completed discharge paperwork to Tina at [facility] including transfer to extended care facility, signed medication list, any scripts, COVID test/tool, and PAS/RR and PAS/RR results. Original in SNF folder and copy on pt's chart. SW spoke with RN, pt to transport via cot. SW accessed trip assist, transportation arranged for 6:30pm. Transportation form completed and placed on SNF folder and copy on pt's chart. SW in to speak with pt. SW updated pt on discharge and transportation time. Pt states understanding. FELIX placed a call to pt's son Joce and updated him on discharge and transportation time. Joce states understanding. FELIX placed a call to pt's DIL Jmaee and updated her on transportation time. Jamee confirms that she made it to [facility] to take the check and just left there. RN updated on transportation time. Plan: [facility] skilled private pay under PAS/RR with Physcian's transporting pt via cot at 6:30pm Hodan Brantley LEAD SUSTAINABILITY SPECIALIST, AUDIT ANALYST
== END 2021-07-10 21:06 | disposition skilled nursing facility (03) ==
LOC: ED 13:04 → MS3 13:41
PROVIDERS: Emergency Provider Emergency Medicine; PCP Family Medicine; Visit Provider Internal Medicine
DX: N17.9 Acute kidney failure, unspecified (principal); I13.0 Hypertensive heart and chronic kidney disease with heart failure and stage 1 through stage 4 chronic kidney disease, or unspecified chronic kidney disease; I50.33 Acute on chronic diastolic (congestive) heart failure; E11.42 Type 2 diabetes mellitus with diabetic polyneuropathy; E86.1 Hypovolemia; E78.5 Hyperlipidemia, unspecified; R53.81 Other malaise; I25.10 Atherosclerotic heart disease of native coronary artery without angina pectoris; K21.9 Gastro-esophageal reflux disease without esophagitis; N18.9 Chronic kidney disease, unspecified; Z79.01 Long term (current) use of anticoagulants; Z79.02 Long term (current) use of antithrombotics/antiplatelets; Z87.891 Personal history of nicotine dependence; Z79.899 Other long term (current) drug therapy
CPT/HCPCS: 36415; 71045; 80048; 80053; 81001; 82962; 83605; 84484; 85025; 85610; 85730; 87040; 87426; 93005; 96360; 96361; 97162; 97167; 97802; 99218; 99285; J7030; A4216; G0378